=== PATIENT | female | born 1965 | race Caucasian/White ===

== ENCOUNTER 2019-07-24 15:08 | Outpatient (CLI) | payer MEDICARE, MEDICAID, SELFPAY ==
--- NOTE | ~2019-07-24 | XR_ITS ---
EXAMINATION: XR chest 2V EXAM DATE: 07/24/2019 15:56 INDICATION: Shortness of breath. TECHNIQUE: Frontal and lateral projections of the chest obtained and reviewed. Comparison is made to prior examination from 02/20/2016. FINDINGS: The lungs are clear. There are no pleural effusions. The cardiomediastinal silhouette is within normal limits. There is no pneumothorax suspected. The bones and soft tissues are unremarkab le. IMPRESSION: No acute cardiopulmonary findings. Reviewed, dictated and finalized at location A. TING ENTRY SPECIALIST
--- NOTE | ~2019-07-24 | MM_ITS ---
EXAMINATION: MM screening [facility] BI w [facility] HISTORY: Screening mammogram TECHNIQUE: Craniocaudal and mediolateral oblique 3-D tomosynthesis images were obtained and synthetic 2-D images were generated. CAD analysis was submitted and interpreted. COMPARISON: 03/21/2014, 01/12/2013 BREAST PARENCHYMAL COMPOSITION: There are scattered areas of fibroglandular density. FINDINGS: There is no evidence of suspicious mass, calcification, or architectural distortion to sugg est malignancy in either breast. There has been no suspicious interval change. IMPRESSION: 1. No mammographic evidence of malignancy. 2. Recommend routine screening mammography in one year. BI-RADS Category 1: Negative Reviewed, dictated and finalized at location A. INGS INSPECTOR
== END 2019-07-24 15:09 | disposition home or self-care (01) ==
PROVIDERS: PCP Family Medicine; Visit Provider Physician Assistant
DX: Z12.31 Encounter for screening mammogram for malignant neoplasm of breast (principal); R06.02 Shortness of breath
CPT/HCPCS: 71046; 77063; 77067

== ENCOUNTER 2020-12-16 13:52 | Outpatient (CLI) | payer MEDICARE, MEDICAID, SELFPAY ==
[2020-12-16 14:29] LABS: Basophils Percent Auto 0.5 % (0.2-1.2); Eosinophils Absolute Auto 0.3 K/mm3 (0-0.3); Eosinophils Percent Auto 3.7 % (0-4.4); Hemoglobin 12.6 g/dL (12.0-15.0); Immature Granulocyte Absolute 0.02 K/mm3 (0.00-0.031); Immature Granulocyte Percent A 0.2 % (0-0.5); Lymphocytes Absolute Auto 2.26 K/mm3 (0.9-3.2); Lymphocytes Percent Auto 26.2 % (18.3-44.2); Mean Corpuscular HGB Conc 32.3 g/dl (32-36); Mean Corpuscular Hemoglobin 29.6 pg (26-34); Mean Corpuscular Volume 91.5 fl (80-100); Mean Platelet Volume 9.4 fl (7.4-10.4); Monocytes Absolute Auto 0.5 K/mm3 (0.1-0.6); Monocytes Percent Auto 5.7 % (2.6-8.5); Neutrophils Absolute Auto 5.5 K/mm3 (1.3-6.7); Neutrophils Percent Auto 63.7 % (45.5-73.1); Platelet Count Result 266 k/mm3 (150-375); Red Blood Count 4.26 M/mm3 (4.2-5.4); Red Cell Distribution Width 13.1 % (11.5-14.5); White Blood Count 8.6 K/mm3 (4.5-10.0)
[2020-12-16 14:40] LABS: Alanine Aminotransferase 13 U/L (4-35); Albumin Level 4.4 g/dL (3.5-5.1); Alkaline Phosphatase 72 U/L (38-126); Anion Gap 9 mmol/L (8-16); Aspartate Amino Transferase 28 U/L (14-36); Bilirubin,Total 0.7 mg/dL (0.2-1.3); Blood Urea Nitrogen 17 mg/dL (7-17); Calcium 9.6 mg/dL (8.4-10.2); Carbon Dioxide 27 mmol/L (22-30); Chloride 106 mmol/L (98-107); Cholesterol 159 mg/dL (0-200); Estimated Glomerular Filt Rate > 60; Glucose 94 mg/dL (65-105); HDL Direct 49 mg/dL; Potassium 3.9 mmol/L (3.4-5.0); Sodium 142 mmol/L (137-145); Triglycerides 103 mg/dL (<150)
[2020-12-16 14:50] LABS: LDL Cholesterol Direct 72 mg/dL
== END 2020-12-16 13:53 | disposition home or self-care (01) ==
LOC: ANHLAB 13:55
PROVIDERS: PCP Family Medicine; Visit Provider Physician Assistant
DX: F32.9 Major depressive disorder, single episode, unspecified (principal); G71.00 Muscular dystrophy, unspecified; I10 Essential (primary) hypertension
CPT/HCPCS: 36415; 80053; 80061; 84443; 85025

== ENCOUNTER 2021-01-16 02:26 | Day surgery (SDC) | payer MEDICARE, MEDICAID, SELFPAY ==
[2020-12-31 13:42] VITALS: BMI 47.7
[2021-01-16 10:00] VITALS: BP 148/92; PULSE 107; RESP 18; TEMP 35.7; O2SAT 100; BMI 46.9
[2021-01-16] MEDS: LACTATED RINGERS 1,000 ML 150 ML IV CONT (10:25)
--- NOTE | 2021-01-16 10:33 | WPDGICN ---
Assessment and Plan Assessment and plan (1) Occult blood in stools: Code(s): R19.5 - Other fecal abnormalities Status: Acute Assessment and Plan: Patient found to have occult blood in stool. Plan is for colonoscopy at this time. Last exam was in 2010 and she did have nonspecific colitis at that time. Further recommendations will be given after endoscopy. GI Consult Note Consult date/time: 01/16/21 10:33 HPI: Marcia Mehta is a 55 year old female presents for evaluation of blood in stool. Patient recently found to have positive FIT tests. Patient states occasionally she will notice bright red blood per rectum. This is usually to a small degree. There is no associated pain. Tends to occur with wiping. 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 Patient currently states her bowel habits are essentially normal. She denies any significant abdominal pain. Past medical history is significant for muscular dystrophy. And hypertension. She does use a wheelchair for ambulation. Review of Systems Review of Systems: All systems reviewed & are unremarkable except as noted in HPI and below PMFSH Past Medical History Medical History (Updated 01/16/21 @ 10:35 by Jarred Flores MD) Anemia Anxiety Arthritis Claustrophobia Constipation Cough Depression Diarrhea Essential (primary) hypertension Hair loss Hypertension Lateral epicondylitis Light headedness Major depressive disorder, single episode, unspecified Muscular dystrophy, unspecified Paronychia Ulnar neuropathy Urinary frequency UTI (urinary tract infection) Wears glasses Weight gain Surgical History Surgical History (Updated 12/17/20 @ 08:08 by Jaymie Gray RT(R)) History of History of shoulder surgery Family History Family History (Updated 12/17/20 @ 08:09 by Jaymie Gray RT(R)) Grandparent Family history of cardiovascular disease Family history of congestive heart failure Mother Carcinoma of colon Family history of malignant neoplasm of stomach Father History of myocardial infarction Other Diabetes mellitus Family history of alcoholism Family history of arthritis Family history of gout High cholesterol History of brain tumor Hypertension Social History Social History (Updated 12/17/20 @ 08:10 by Jaymie Gray RT(R)) Smoking packs per day: 0.5 Smoking cigarettes per day: 10.0 Years smoked: 40 Smoking pack-years: 20.00 Smoking status: Former smoker Smoking end date: 05/20/17 Alcohol intake: never Substance use: never Substance use type: does not use Living arrangements: alone Gender identity (if verbalized by the patient): Female Spiritual care concerns: No Meds Home Medications and Allergies Home Medications Medication Instructions Recorded Confirmed Type bupropion HCl 150 mg 24 hr tablet, 150 mg PO QAM #90 tablet 07/02/20 01/16/21 Rx extended release venlafaxine 75 mg capsule,extended 75 mg PO DAILY #90 cap 07/02/20 01/16/21 Rx release 24 hr losartan 50 mg tablet See Rx Instructions .ROUTE 12/01/20 01/16/21 Rx .COMPLEX #90 tablet naproxen 500 mg tablet See Rx Instructions .ROUTE 12/01/20 01/16/21 Rx .COMPLEX #60 tablet baclofen 10 mg tablet See Rx Instructions .ROUTE 12/23/20 01/16/21 Rx .COMPLEX #90 tablet tobramycin 0.3 % eye drops 2 drp EACH EYE Q4H #5 ml 12/26/20 01/16/21 Rx Allergies Allergy/AdvReac Type Severity Reaction Status Date / Time guaifenesin Allergy Mild Unknown Verified 01/16/21 09:37 azathioprine Allergy Unknown Nausea Verified 01/16/21 09:37 codeine [Guaifen-C] Allergy Unknown jittery Verified 01/16/21 09:37 erythromycin base Allergy Unknown upset Verified 01/16/21 09:37 stomach hydrocodone Allergy Unknown itching Verified 01/16/21 09:37 morphine Allergy Unknown Unknown Verified 01/16/21 09:37 pseudoephedrine [Entex T] Allergy Unkno
--- NOTE | 2021-01-16 10:49 | WPDANESEPPF ---
Anes - Initial Pre Proc Eval Procedure: Operation Date: 01/16/21 10:30 Proposed Procedures p Colonoscopy - Jarred Flores MD Date/Time: 01/16/21 10:49 Surgeon: Jarred Flores MD Pre Op Diagnosis: positive cologuard Patient Data Age: 55 Gender: F Height: 1.65 m Weight: 128 kg Last Vital Signs Temp 96.2 F L 01/16/21 10:00 Pulse 107 H 01/16/21 10:00 Resp 18 01/16/21 10:00 BP 148/92 H 01/16/21 10:00 Pulse Ox 100 01/16/21 10:00 Allergies Allergy/AdvReac Type Severity Reaction Status Date / Time guaifenesin Allergy Mild Unknown Verified 01/16/21 09:37 azathioprine Allergy Unknown Nausea Verified 01/16/21 09:37 codeine [Guaifen-C] Allergy Unknown jittery Verified 01/16/21 09:37 erythromycin base Allergy Unknown upset Verified 01/16/21 09:37 stomach hydrocodone Allergy Unknown itching Verified 01/16/21 09:37 morphine Allergy Unknown Unknown Verified 01/16/21 09:37 pseudoephedrine [Entex T] Allergy Unknown jittery Verified 01/16/21 09:37 IMMUNOSUPPRESS Allergy Mild Unknown Uncoded 01/16/21 09:37 PHENYLEPHRINE HCL Allergy Mild Unknown Uncoded 01/16/21 09:37 PHENYLPROPANOLAMINE HCL Allergy Mild Unknown Uncoded 01/16/21 09:37 Home Medications Medication Instructions Recorded Confirmed Type bupropion HCl 150 mg 24 hr tablet, 150 mg PO QAM #90 tablet 07/02/20 01/16/21 Rx extended release venlafaxine 75 mg capsule,extended 75 mg PO DAILY #90 cap 07/02/20 01/16/21 Rx release 24 hr losartan 50 mg tablet See Rx Instructions .ROUTE 12/01/20 01/16/21 Rx .COMPLEX #90 tablet naproxen 500 mg tablet See Rx Instructions .ROUTE 12/01/20 01/16/21 Rx .COMPLEX #60 tablet baclofen 10 mg tablet See Rx Instructions .ROUTE 12/23/20 01/16/21 Rx .COMPLEX #90 tablet tobramycin 0.3 % eye drops 2 drp EACH EYE Q4H #5 ml 12/26/20 01/16/21 Rx Patient hx anesthesia problems: none Family hx anesthesia problems: none PMFSH Past Medical History Medical History (Updated 01/16/21 @ 10:35 by Jarred Flores MD) Anemia Anxiety Arthritis Claustrophobia Constipation Cough Depression Diarrhea Essential (primary) hypertension Hair loss Hypertension Lateral epicondylitis Light headedness Major depressive disorder, single episode, unspecified Muscular dystrophy, unspecified Paronychia Ulnar neuropathy Urinary frequency UTI (urinary tract infection) Wears glasses Weight gain Surgical History Surgical History (Updated 12/17/20 @ 08:08 by Jaymie Gray RT(R)) History of History of shoulder surgery Family History Family History (Updated 12/17/20 @ 08:09 by RT Sav(R)) Grandparent Family history of cardiovascular disease Family history of congestive heart failure Mother Carcinoma of colon Family history of malignant neoplasm of stomach Father History of myocardial infarction Other Diabetes mellitus Family history of alcoholism Family history of arthritis Family history of gout High cholesterol History of brain tumor Hypertension Social History Social History (Updated 12/17/20 @ 08:10 by Jaymie Gray RT(R)) Smoking packs per day: 0.5 Smoking cigarettes per day: 10.0 Years smoked: 40 Smoking pack-years: 20.00 Smoking status: Former smoker Smoking end date: 05/20/17 Alcohol intake: never Substance use: never Substance use type: does not use Living arrangements: alone Gender identity (if verbalized by the patient): Female Spiritual care concerns: No Anes - Eval Final PreProcedure Day of Procedure 01/16/21 10:49 Patient weight: morbidly obese Heart: regular rate and rhythm Lungs: clear to auscultation Airway: Mallampati scale class III Neurological: alert and oriented Last oral intake: >/= 8 hours ASA classification: IV Emergent: no Anesthetic plan: proceed Anesthesia type and monitoring: general GIVS and standard monitoring Informed Consent: The patient's anesthetic plan and its attendant ris
[2021-01-16 11:10] VITALS: BP 88/50; PULSE 90; RESP 20; O2SAT 100
[2021-01-16 11:20] VITALS: BP 96/54; PULSE 88; RESP 18; O2SAT 100
[2021-01-16 11:30] VITALS: BP 113/66; PULSE 88; RESP 20; O2SAT 100
[2021-01-21 12:25] LABS: ANCA Screen Negative (Negative); Myeloperoxidase Ab <1.0 AI (<1.0); Proteinase-3 Ab <1.0 AI (<1.0); S cerevisiae Ab (IgA) 11.3 U (<=20.0); S cerevisiae Ab (IgG) 10.4 U (<=20.0)
== END 2021-01-16 12:10 | disposition home or self-care (01) ==
PROVIDERS: PCP Family Medicine; Visit Provider Internal Medicine Gastroenterology
PROC: 0DJD8ZZ Inspection of Lower Intestinal Tract, Via Natural or Artificial Opening Endoscopic (ICD-10-PCS; CPT 45378; principal; 2021-01-16 10:30)
DX: K52.9 Noninfective gastroenteritis and colitis, unspecified (principal); K64.4 Residual hemorrhoidal skin tags; K64.8 Other hemorrhoids; K56.699 Other intestinal obstruction unspecified as to partial versus complete obstruction; D64.9 Anemia, unspecified; F41.8 Other specified anxiety disorders; I10 Essential (primary) hypertension; G71.00 Muscular dystrophy, unspecified; Z99.3 Dependence on wheelchair; Z87.891 Personal history of nicotine dependence
CPT/HCPCS: 45380; 36415; 86021; 86671; 88305; J2704; J7120

== ENCOUNTER 2021-01-26 07:58 | Outpatient (CLI) | payer MEDICARE, MEDICAID, SELFPAY ==
--- NOTE | ~2021-01-26 | XR_ITS ---
EXAMINATION: XR_ENEMABAC_CR DATE: 01/26/2021 09:27 INDICATION: Ascending colon stricture. TECHNIQUE: A sawdust machine operator radiograph was obtained. A catheter was inserted into the patient's rectum. Contra st was infused by gravity. Gas was infused by hand pump. Fluoroscopic spot images and conventional ra diographs were obtained. Fluoroscopy exposure time was 0.7 minutes. The total number of images was 42 . COMPARISON: CT abdomen and pelvis 05/15/2014 FINDINGS: There is a severe stricture of the ascending colon. The transverse, descending, and sigmoid colon and rectum are normal. IMPRESSION: 1. Severe stricture of the ascending colon suspicious for malignancy. Reviewed, dictated and finalized at location A.
== END 2021-01-26 07:59 | disposition home or self-care (01) ==
LOC: ANHIMG 08:02
PROVIDERS: PCP Family Medicine; Visit Provider Internal Medicine Gastroenterology
DX: K56.699 Other intestinal obstruction unspecified as to partial versus complete obstruction (principal); R93.3 Abnormal findings on diagnostic imaging of other parts of digestive tract
CPT/HCPCS: 74280

== ENCOUNTER → 2021-02-10 14:22 | Outpatient (CLI) | payer MEDICARE, MEDICAID, SELFPAY ==
--- NOTE | ~2021-02-10 | CT_ITS ---
EXAMINATION: CT abdomen pelvis w con DATE: 02/10/2021 15:11 INDICATION: Stricture of ascending colon TECHNIQUE: Computed tomography (CT) of the abdomen and pelvis was performed with 100 cc Omnipaque 350 intravenous contrast. Automated exposure control and iterative reconstruction technique were employe d. Exam dose: 977.05 mGy-cm total exam DLP. COMPARISON: 05/15/2014 CT abdomen pelvis FINDINGS: The lung bases are clear of infiltrate or consolidation. Normal heart size. No pericardial or pleural effusion. The liver, gallbladder, bile ducts, spleen, pancreas, pancreatic duct, and adrenal glands are unremar kable. 6 mm and 8 mm right renal cysts. No urinary tract calculus or hydroureteronephrosis. There is abdominal aortic, iliac and femoral artery calcification. No abdominal aortic aneurysm. No intraperit morgan or retroperitoneal or pelvic mass lesion or adenopathy or ascites. The uterus, adnexal areas and urinary bladder are unremarkable. There is fatty infiltration of the wall of the ascending colon. There are some shoddy likely reactive lymph nodes in the right lower quadrant. The appendix measures approximately 7 mm diameter, similar to 05/15/2014. No bowel obstruction or intraperitoneal free air. Small fat-containing umbilical hernia. There is chronic severe atrophy of the musculature throughout the chest and abdomen. No suspicious osteolytic or osteoblastic lesions are noted. IMPRESSION: There is fatty infiltration of the ascending colon which may be due to residual from inf lammatory or infectious disease. No bowel obstruction is evident. Colonoscopy or barium enema would b e more sensitive for detection of stricture or colon mass lesion. Shotty right lower quadrant lymph nodes, mildly increased compared to Stable appearance of 7 mm diameter appendix since 05/15/2014 Reviewed, dictated and finalized at Location A. Reviewed, dictated and finalized at location A. IMPRESSION: There is fatty infiltration of the ascending colon which may be du e to residual from inflammatory or infectious disease. No bowel obstruction is evident. Colonoscopy or barium enema would be more sensitive for detection of s tricture or colon mass lesion. Shotty right lower quadrant lymph nodes, mildly increased compared to Stable appearance of 7 mm diameter appendix since 05/15/2014
[2021-02-10 14:47] LABS: Estimated Glomerular Filt Rate > 60
== END ==
PROVIDERS: PCP Family Medicine; Visit Provider Surgery
DX: K56.699 Other intestinal obstruction unspecified as to partial versus complete obstruction (principal); R59.0 Localized enlarged lymph nodes
CPT/HCPCS: 74177; Q9967

== ENCOUNTER 2021-02-19 11:57 | Outpatient (CLI) | payer MEDICARE, MEDICAID, SELFPAY ==
--- NOTE | 2021-02-19 12:54 | ECG_ITS ---
Measurements Intervals [place] Rate: 92 P: 64 DC: 162 QRS: 8 QRSD: 101 T: 40 QT: 349 QTc: 432 Interpretive Statements SINUS RHYTHM INCOMPLETE RIGHT BUNDLE BRANCH BLOCK BORDERLINE R WAVE PROGRESSION, ANTERIOR LEADS BASELINE ARTIFACT- I, II, III, AVR, AVL, AVF BORDERLINE ECG Electronically Signed On 02-19-2021 13:03:07 CDT by West Reyes D.O.
== END 2021-02-19 11:58 | disposition home or self-care (01) ==
LOC: ANHSURGERY 12:04
PROVIDERS: PCP Family Medicine; Visit Provider Surgery
DX: Z01.818 Encounter for other preprocedural examination (principal); I45.10 Unspecified right bundle-branch block
CPT/HCPCS: 36415; 86850; 86900; 86901; 93005

== ENCOUNTER 2021-04-17 00:48 | Day surgery (SDC) | payer MEDICARE, MEDICAID, SELFPAY ==
[2021-03-26 13:22] VITALS: BMI 49.8
[2021-04-17 08:07] VITALS: BP 177/99; PULSE 97; RESP 16; TEMP 36; O2SAT 97; BMI 49.8
[2021-04-17] MEDS: LACTATED RINGERS 1,000 ML 150 ML IV CONT (08:10)
--- NOTE | 2021-04-17 08:16 | WPDANESEPPF ---
Anes - Initial Pre Proc Eval Procedure: Operation Date: 04/17/21 08:30 Proposed Procedures p Colonoscopy - Jarred Flores MD Date/Time: 04/17/21 08:16 Surgeon: Jarred Flores MD Pre Op Diagnosis: stenosis/colonic stricture Patient Data Age: 56 Gender: F Height: 1.65 m Weight: 136 kg Last Vital Signs Temp 36.0 C L 04/17/21 08:07 Pulse 97 04/17/21 08:07 Resp 16 04/17/21 08:07 BP 177/99 H 04/17/21 08:07 Pulse Ox 97 04/17/21 08:07 Allergies Allergy/AdvReac Type Severity Reaction Status Date / Time mesalamine Allergy Mild muscle Verified 04/17/21 08:06 weakness azathioprine Allergy Unknown Nausea Verified 04/17/21 08:06 codeine [Guaifen-C] Allergy Unknown jittery Verified 04/17/21 08:06 erythromycin base Allergy Unknown upset Verified 04/17/21 08:06 stomach hydrocodone Allergy Unknown itching Verified 04/17/21 08:06 morphine Allergy Unknown Itching Verified 04/17/21 08:06 pseudoephedrine [Entex T] Allergy Unknown jittery Verified 04/17/21 08:06 guaifenesin AdvReac Mild Jittery Verified 04/17/21 08:06 IMMUNOSUPPRESS Allergy Mild Unknown Uncoded 04/17/21 08:06 PHENYLEPHRINE HCL Allergy Mild Jittery Uncoded 04/17/21 08:06 PHENYLPROPANOLAMINE HCL Allergy Mild Unknown Uncoded 04/17/21 08:06 Home Medications Medication Instructions Recorded Confirmed Type metronidazole 500 mg tablet 500 mg PO .COMPLEX #3 tablet 02/06/21 04/17/21 Rx neomycin 500 mg tablet 1 g PO .COMPLEX #6 tablet 02/06/21 04/17/21 Rx acetaminophen [Tylenol Extra 500 mg PO PRN PRN 02/19/21 04/17/21 History Strength] bupropion HCl [Wellbutrin XL] 150 mg PO HS 02/19/21 04/17/21 History losartan 50 mg PO HS 02/19/21 04/17/21 History venlafaxine [Effexor XR] 75 mg PO HS 02/19/21 04/17/21 History baclofen 10 mg tablet See Rx Instructions .ROUTE 03/13/21 04/17/21 Rx .COMPLEX #90 tablet Patient hx anesthesia problems: none Family hx anesthesia problems: none Results Review: All pre-operative results and documents have been reviewed as part of the pre-operative evaluation. [facility] Past Medical History Medical History Anemia Anxiety Arthritis Claustrophobia Constipation Cough Depression Diarrhea Essential (primary) hypertension Hair loss Hypertension Lateral epicondylitis Light headedness Major depressive disorder, single episode, unspecified Muscular dystrophy, unspecified Paronychia Ulnar neuropathy Urinary frequency UTI (urinary tract infection) Wears glasses Weight gain Surgical History Surgical History History of History of shoulder surgery Family History Family History Father Myocardial infarction Hypertension Mother Carcinoma of colon Hypertension Stomach cancer with mets to the throat Sibling Brain tumor Sibling Hypertension Sibling Hypertension Grandparent Breast cancer Paternal grandmother - with mets to the colon Other Congestive heart failure Myocardial infarction Social History Social History Smoking packs per day: 0.5 Smoking cigarettes per day: 10.0 Years smoked: 37 Smoking pack-years: 18.50 Smoking status: Former smoker Tobacco type: cigarettes Smoking end date: 06/20/15 Alcohol intake: never Substance use: never Substance use type: does not use Living arrangements: with family Gender identity (if verbalized by the patient): Female Spiritual care concerns: No Anes - Eval Final PreProcedure Day of Procedure 04/17/21 08:16 Patient weight: obese Heart: regular rate and rhythm Lungs: clear to auscultation Airway: Mallampati scale class II Neurological: alert and oriented Last oral intake: >/= 8 hours ASA classification: III Emergent: no Anesthetic plan: proceed Anesthesia type and monitoring:
--- NOTE | 2021-04-17 08:20 | WPDGICN ---
Assessment and Plan Assessment and plan (1) Stricture of ascending colon: Code(s): K56.699 - Other intestinal obstruction unspecified as to partial versus complete obstruction Status: Acute Assessment and Plan: Patient has had apparent stricture of the ascending colon on previous exams. Currently asymptomatic on regular diet. Plan is for follow-up exam to determine status of this stricture. (2) Occult blood in stools: Code(s): R19.5 - Other fecal abnormalities Status: Acute Assessment and Plan: Patient with a prior history of occult blood in stool. No obvious blood has been noted recently. (3) Muscular dystrophy, unspecified: Code(s): G71.00 - Muscular dystrophy, unspecified Status: Acute GI Consult Note Consult date/time: 04/17/21 08:20 HPI: Marcia Mehta is a 56 year old female presents for colonoscopy. Patient has an underlying history of muscular dystrophy. She underwent colonoscopy because of occult blood in stool and was ultimately found to have a stricture of the ascending colon. Initial barium enema suggested a tight stricture with concern over malignancy. Follow-up barium enema revealed no stricture at all. Patient presents today for follow-up exam to ensure resolution or to confirm stricture ring. She denies any abdominal pain. She has had no bleeding. Initially treated with low residue diet she has begun to have a more regular normal diet. Family history is significant that her mother had carcinoma the colon as well as stomach cancer. Review of Systems Review of Systems: All systems reviewed & are unremarkable except as noted in HPI and below PMFSH Past Medical History Medical History Anemia Anxiety Arthritis Claustrophobia Constipation Cough Depression Diarrhea Essential (primary) hypertension Hair loss Hypertension Lateral epicondylitis Light headedness Major depressive disorder, single episode, unspecified Muscular dystrophy, unspecified Paronychia Ulnar neuropathy Urinary frequency UTI (urinary tract infection) Wears glasses Weight gain Surgical History Surgical History History of History of shoulder surgery Family History Family History Father Myocardial infarction Hypertension Mother Carcinoma of colon Hypertension Stomach cancer with mets to the throat Sibling Brain tumor Sibling Hypertension Sibling Hypertension Grandparent Breast cancer Paternal grandmother - with mets to the colon Other Congestive heart failure Myocardial infarction Social History Social History Smoking packs per day: 0.5 Smoking cigarettes per day: 10.0 Years smoked: 37 Smoking pack-years: 18.50 Smoking status: Former smoker Tobacco type: cigarettes Smoking end date: 06/20/15 Alcohol intake: never Substance use: never Substance use type: does not use Living arrangements: with family Gender identity (if verbalized by the patient): Female Spiritual care concerns: No Meds Home Medications and Allergies Home Medications Medication Instructions Recorded Confirmed Type metronidazole 500 mg tablet 500 mg PO .COMPLEX #3 tablet 02/06/21 04/17/21 Rx neomycin 500 mg tablet 1 g PO .COMPLEX #6 tablet 02/06/21 04/17/21 Rx acetaminophen [Tylenol Extra 500 mg PO PRN PRN 02/19/21 04/17/21 History Strength] bupropion HCl [Wellbutrin XL] 150 mg PO HS 02/19/21 04/17/21 History losartan 50 mg PO HS 02/19/21 04/17/21 History venlafaxine [Effexor XR] 75 mg PO HS 02/19/21 04/17/21 History baclofen 10 mg tablet See Rx Instructions .ROUTE 03/13/21 04/17/21 Rx .COMPLEX #90 tablet Allergies Allergy/AdvReac Type Severity Reaction Status Date / Time mesalamine Allergy Mild muscle Ve
[2021-04-17 08:53] VITALS: BP 114/62; PULSE 86; RESP 15; O2SAT 99
[2021-04-17 09:03] VITALS: BP 134/83; PULSE 91; RESP 13; O2SAT 99
[2021-04-17 09:13] VITALS: BP 154/90; PULSE 87; RESP 20; O2SAT 99
== END 2021-04-17 09:35 | disposition home or self-care (01) ==
PROVIDERS: PCP Family Medicine; Visit Provider Internal Medicine Gastroenterology
PROC: 0DJD8ZZ Inspection of Lower Intestinal Tract, Via Natural or Artificial Opening Endoscopic (ICD-10-PCS; CPT 45378; principal; 2021-04-17 08:30)
DX: K56.699 Other intestinal obstruction unspecified as to partial versus complete obstruction (principal); K52.9 Noninfective gastroenteritis and colitis, unspecified; K63.89 Other specified diseases of intestine; R19.5 Other fecal abnormalities; G71.00 Muscular dystrophy, unspecified; D64.9 Anemia, unspecified; F41.9 Anxiety disorder, unspecified; M19.90 Unspecified osteoarthritis, unspecified site; F40.240 Claustrophobia; F32.A Depression, unspecified; I10 Essential (primary) hypertension; G56.20 Lesion of ulnar nerve, unspecified upper limb; Z80.0 Family history of malignant neoplasm of digestive organs; Z87.891 Personal history of nicotine dependence
CPT/HCPCS: 45380; 88305; J2704; J7120

== ENCOUNTER 2021-06-13 15:36 | Inpatient (IN) | payer MEDICARE, MEDICAID, SELFPAY ==
[2021-06-13] VITALS (14 sets, daily range): BP systolic 150–188; BP diastolic 71–98; PULSE 78–106; RESP 18–166; TEMP 36.4–36.8; O2SAT 97–100
--- NOTE | ~2021-06-13 | XR_ITS ---
XR hip LT 2V w AP pelvis DATE: 06/14/2021 10:44 INDICATION: Left femoral neck fracture TECHNIQUE: Portable AP pelvis. AP and crosstable lateral views of left hip COMPARISON: None FINDINGS: 3 lag screws extend through the intertrochanteric area and femoral neck into the femoral he ad, providing internal fixation for the left capital femoral neck fracture. Diffuse osteopenia. The pubic symphysis and sacroiliac joints are intact. IMPRESSION: ORIF left subcapital femoral neck fracture Reviewed, dictated and finalized at location A. TNING ROD ERECTOR
--- NOTE | ~2021-06-13 | XR_ITS ---
EXAMINATION: XR hip LT 2V w AP pelvis DATE: 06/13/2021 16:03 INDICATION: Left hip pain post fall TECHNIQUE: Anteroposterior view of the pelvis and anteroposterior and cross-table lateral views of th e left hip were obtained. COMPARISON: None. FINDINGS: Proximally 5 mm posterior displacement of a transcervical fracture of the proximal left femur. No oth er fractures identified. Mild osteoarthritis at the bilateral hips. IMPRESSION: 1. 5 mm posterior displacement of a left femoral transcervical fracture. Reviewed, dictated and finalized at location . GER PMO
--- NOTE | ~2021-06-13 | XR_ITS ---
EXAMINATION: XR chest 1V portable DATE: 06/13/2021 17:25 INDICATION: Left hip fracture post fall from preoperative evaluation. Surgical risk factors of hypert ension and prior smoking. TECHNIQUE: frontal view of the chest was obtained. COMPARISON: Chest radiograph dated 07/24/2019 FINDINGS: Mild linear atelectasis/scarring at the right costophrenic angle. No other airspace opacities, pulmon erick edema, pleural effusion or pneumothorax. The cardiomediastinal silhouette is normal. Visualized b ones and soft tissues are unremarkable. IMPRESSION: 1. No acute cardiopulmonary disease. Reviewed, dictated and finalized at location . ICAL RESEARCH ASSISTANT
--- NOTE | ~2021-06-13 | XR_ITS ---
EXAMINATION: XR knee LT 2V DATE: 06/13/2021 19:02 INDICATION: Left knee pain post fall TECHNIQUE: AP, oblique and crosstable lateral views of the left knee were obtained.. COMPARISON: 10/11/2013 FINDINGS: Alignment is normal. No fracture. Joint spaces appear normal on nonweightbearing imaging. Soft tissue s are unremarkable. No knee joint effusion or layering lipohemarthrosis. IMPRESSION: 1. Negative left knee radiographs. Reviewed, dictated and finalized at location H. RY TANK TENDER
--- NOTE | ~2021-06-13 | XR_ITS ---
XR surgery orthopedic DATE: 06/14/2021 10:44 INDICATION: Subcapital femoral neck fracture TECHNIQUE: 114.7 seconds fluoroscopy time [id number] [id number] COMPARISON: None FINDINGS: 3 lag screws are placed through the intertrochanteric area and femoral neck into the left f emoral head, providing internal fixation for the left subcapital femoral neck fracture. IMPRESSION: ORIF left subcapital femoral neck fracture Reviewed, dictated and finalized at Location A. Reviewed, dictated and finalized at location A. SER AUTOMATIC
--- NOTE | 2021-06-13 16:58 | ECG_ITS ---
Measurements Intervals [place] Rate: 100 P: 51 PA: 140 QRS: 24 QRSD: 100 T: 60 QT: 355 QTc: 459 Interpretive Statements SINUS TACHYCARDIA POSSIBLE LEFT ATRIAL ENLARGEMENT INCOMPLETE RIGHT BUNDLE BRANCH BLOCK BORDERLINE ECG Electronically Signed On 06-13-2021 21:03:55 KENO WRITER / RUNNER by West Reyes D.O.
--- NOTE | 2021-06-13 17:06 | ED.FALL ---
HPI - Fall General Chief Complaint: Fall Stated Complaint: HIP PAIN Time Seen by Provider: 06/13/21 16:23 Source: patient, EMS and RN notes reviewed Mode of arrival: EMS Limitations: no limitations History of Present Illness HPI Narrative: Patient presents with left groin pain. After a fall. History of MS. Patient was attempting to transfer from wheelchair to a toilet then fell. Denies other injuries. Patient is wheelchair-bound, she can stand, cannot walk even 1 step.. BMI is 39.6 kg/m?, fully vaccinated and boosted for COVID-19. History of MS, depression, hypertension. Patient is not on anticoagulant or antiplatelet medication Related Data Home Medications Medication Instructions Recorded Confirmed acetaminophen [Tylenol Extra 500 mg PO PRN PRN 02/19/21 04/17/21 Strength] bupropion HCl [Wellbutrin XL] 150 mg PO HS 02/19/21 04/17/21 losartan 50 mg PO HS 02/19/21 04/17/21 venlafaxine [Effexor XR] 75 mg PO HS 02/19/21 04/17/21 Allergies Allergy/AdvReac Type Severity Reaction Status Date / Time phenylpropanolamine Allergy Mild Unknown Verified 06/13/21 17:19 hydrocodone Allergy Unknown itching Verified 04/17/21 08:06 guaifenesin AdvReac Mild Jittery Verified 04/17/21 08:06 mesalamine AdvReac Mild muscle Verified 06/13/21 17:20 weakness phenylephrine AdvReac Mild Jittery Verified 06/13/21 17:19 azathioprine AdvReac Unknown Nausea Verified 06/13/21 17:20 codeine [Guaifen-C] AdvReac Unknown jittery Verified 06/13/21 17:20 erythromycin base AdvReac Unknown upset Verified 06/13/21 17:20 stomach morphine AdvReac Unknown Itching Verified 06/13/21 17:20 pseudoephedrine [Entex T] AdvReac Unknown jittery Verified 06/13/21 17:20 IMMUNOSUPPRESS Allergy Mild Unknown Uncoded 04/17/21 08:06 Review of Systems Review of Systems: CONSTITUTIONAL: Denies fever, chills, or sweats. EYES: Denies visual changes, redness, or discharge. ENT: Denies rhinorrhea, congestion, sore throat, or otalgia. CARDIOVASCULAR: Denies chest pain, palpitations, or edema. RESPIRATORY: Denies cough or dyspnea. GASTROINTESTINAL: Denies abdominal pain, nausea, vomiting, or diarrhea. GENITOURINARY: Denies dysuria or hematuria. SKIN: Denies rash or itching. MUSCULOSKELETAL: Left groin pain NEUROLOGIC: Denies headache, numbness, or weakness. PSYCHIATRIC: Denies anxiety or depression. PMFSH Past Medical History Medical History Anemia Anxiety Arthritis Claustrophobia Constipation Cough Depression Diarrhea Essential (primary) hypertension Hair loss Hypertension Lateral epicondylitis Light headedness Major depressive disorder, single episode, unspecified Muscular dystrophy, unspecified Paronychia Ulnar neuropathy Urinary frequency UTI (urinary tract infection) Wears glasses Weight gain Surgical History Surgical History History of History of shoulder surgery Family History Family History Father Myocardial infarction Hypertension Mother Carcinoma of colon Hypertension Stomach cancer with mets to the throat Sibling Brain tumor Sibling Hypertension Sibling Hypertension Grandparent Breast cancer Paternal grandmother - with mets to the colon Other Congestive heart failure Myocardial infarction Social History Social History Smoking packs per day: 0.5 Smoking cigarettes per day: 10.0 Years smoked: 37 Smoking pack-years: 18.50 Smoking status: Former smoker Tobacco type: cigarettes Smoking end date: 06/20/15 Alcohol intake: never Substance use: never Substance use type: does not use Gender identity (if verbalized by the patient): Female Spiritual care concerns: No Exam Narrative: General appearance: Well-developed, well-nourished Skin: Normal color Head: Normocep
[2021-06-13 17:34] LABS: Basophils Percent Auto 0.4 % (0.2-1.2); Eosinophils Absolute Auto 0.1 K/mm3 (0-0.3); Hematocrit 37.8 % (37.0-47.0); Hemoglobin 12.3 g/dL (12.0-15.0); Immature Granulocyte Absolute 0.05 K/mm3 (0.00-0.031); Immature Granulocyte Percent A 0.4 % (0-0.5); Lymphocytes Absolute Auto 1.31 K/mm3 (0.9-3.2); Lymphocytes Percent Auto 11.6 % (18.3-44.2); Mean Corpuscular HGB Conc 32.5 g/dl (32-36); Mean Corpuscular Hemoglobin 29.9 pg (26-34); Mean Corpuscular Volume 91.7 fl (80-100); Mean Platelet Volume 9.2 fl (7.4-10.4); Monocytes Absolute Auto 0.5 K/mm3 (0.1-0.6); Monocytes Percent Auto 4.1 % (2.6-8.5); Neutrophils Absolute Auto 9.4 K/mm3 (1.3-6.7); Neutrophils Percent Auto 82.5 % (45.5-73.1); Platelet Count Result 272 k/mm3 (150-375); Red Blood Count 4.12 M/mm3 (4.2-5.4); Red Cell Distribution Width 13.2 % (11.5-14.5); White Blood Count 11.3 K/mm3 (4.5-10.0)
[2021-06-13 17:43] LABS: Prothrombin Time 12.9 Seconds (11.1-14.7)
[2021-06-13] MEDS: fentaNYL CITRATE INJ (*CRX) 100 MCG/2 ML VIAL 25 MCG IV PUSH (17:44)
[2021-06-13] MEDS: ONDANSETRON INJ 4 MG/2 ML VIAL IV PUSH (17:44)
[2021-06-13 17:45] LABS: Alanine Aminotransferase 17 U/L (4-35); Albumin Level 4.2 g/dL (3.5-5.1); Alkaline Phosphatase 93 U/L (38-126); Anion Gap 6 mmol/L (8-16); Aspartate Amino Transferase 22 U/L (14-36); Bilirubin,Total 0.8 mg/dL (0.2-1.3); Blood Urea Nitrogen 22 mg/dL (7-17); Calcium 8.8 mg/dL (8.4-10.2); Carbon Dioxide 25 mmol/L (22-30); Chloride 106 mmol/L (98-107); Estimated CRCL calculation 94 ml/min; Estimated Glomerular Filt Rate > 60; Glucose 100 mg/dL (65-110); Potassium 3.5 mmol/L (3.4-5.0); Sodium 137 mmol/L (137-145)
--- NOTE | 2021-06-13 18:30 | PM.IMHP ---
H&P: HPI History of Present Illness Date/Time: 06/13/21 18:30 Chief Complaint: Left hip pain after fall. Narrative: This is a very pleasant 56-year-old female with limb-girdle muscular dystrophy and hypertension who presented to the emergency department earlier today via EMS from home for evaluation of left hip pain after a fall. She is essentially wheelchair-bound but is able to stand and pivot although recently she has felt more weak in her limbs than usual which she believes is due to mesalamine that was prescribed to her a couple of months ago for colitis. About a week ago when transferring from her wheelchair to the toilet she felt very weak in her legs in knees and she suffered a fall in the bathroom in which she struck the left side of her face. She had to call EMS for lift assist but at that time she sustained no injuries and was not transported for evaluation. Since that time she has continued to feel weak and she admits that she has some anxiety when transferring to the toilet now due to that fall so she has been attempting to use a bedpan. This morning she stood from her wheelchair and family members put the bedpan under her though she was unable to sit down due to the height of the chair and she quickly became weak in the knees and she once again fell over onto her left side. She felt her left knee turn in and heard a pop and felt a discomfort in the left groin. Left hip x-ray done on arrival to the emergency department showed 5 mm posterior displacement of a left femoral transcervical fracture and she is being admitted in this setting. At the time my evaluation she has no specific complaints and reports that her pain is manageable. She denies head trauma and loss of consciousness in the fall and she does not think she sustained any other injuries although her left knee is a bit sore. Review of Systems Review of Systems: Twelve systems were reviewed. No fever, chills, or sweats. No recent cold or flu symptoms. No sick contacts. She denies chest pain shortness of breath. No cough. No nausea or vomiting. She typically suffers from constipation however since March she has had several bouts of loose stools a day and in fact she was found to have ascending colitis on colonoscopy at the end of March per Dr. Flores. She was started on mesalamine at that time but she has since stopped that after her fall last week as she thinks the drug may be to blame for her increasing weakness. No focal weakness or paresthesias. She has been having problems with ulnar neuropathy and has had bilateral lateral epicondyle injections recently with some benefit. Except as documented, all other systems were reviewed and are negative. [facility] Past Medical History Medical History (Updated 06/13/21 @ 22:12 by Aspen Garcia PA-C) Anemia Anxiety Arthritis Constipation Depression Hypertension Limb-girdle muscular dystrophy Surgical History Surgical History (Updated 06/13/21 @ 22:08 by Aspen Garcia PA-C) History of section History of colonoscopy (03/2021) Performed due to findings of ascending colon stricture on other imaging studies. No stricture was identified however colitis was noted in the ascending colon. Colonoscopy per Dr. Flores. History of open reduction and internal fixation (ORIF) procedure Repair of right humerus fracture. Family History Family History Father Myocardial infarction Hypertension Mother Carcinoma of colon Hypertension Stomach cancer with mets to the throat Sibling Brain tumor Sibling Hypertension Sibling Hypertension Grandparent Breast cancer Paternal grandmother - with mets to the colon Other Congestive heart failure Myocardial infarction Social History Social History (Updated 06/13/21 @ 22:09 by Aspen Garcia PA-C) Social History: Surrogate decision maker: Davonte Mehta, daughter. Code status: Full code. Smoking pa
[2021-06-13] MEDS: SODIUM CHLORIDE 0.9% IV 1,000 ML 125 ML IV CONT (20:52)
[2021-06-13] MEDS: fentaNYL CITRATE INJ (*CRX) 100 MCG/2 ML VIAL 50 MCG IV PUSH (20:59)
--- NOTE | 2021-06-13 21:47 | PM.CNOR ---
Assessment and Plan Additional Plan 56 yo with Garden 2 femoral neck fx Will proceed with insitu pinning NPO No anticoag after MN tonite Anesthesia consult Pt with a muscular dystrophy but has tolerated several anesthetics without problems per pt. History of Present Illness HPI Consult date: 06/13/21 Chief complaint: Left Hip Fracture Narrative: 56 yo with muscular dystrophy who fell from her WC and has a Garden 2 femoral neck fx on the left. She is a nonambulator who is WC bound for about 13 years. She does pivot transfers although she as fallen recently and may be losing this function. [facility] Past Medical History Medical History Anemia Anxiety Arthritis Claustrophobia Constipation Cough Depression Diarrhea Essential (primary) hypertension Hair loss Hypertension Lateral epicondylitis Light headedness Major depressive disorder, single episode, unspecified Muscular dystrophy, unspecified Paronychia Ulnar neuropathy Urinary frequency UTI (urinary tract infection) Wears glasses Weight gain Surgical History Surgical History History of History of shoulder surgery Family History Family History Father Myocardial infarction Hypertension Mother Carcinoma of colon Hypertension Stomach cancer with mets to the throat Sibling Brain tumor Sibling Hypertension Sibling Hypertension Grandparent Breast cancer Paternal grandmother - with mets to the colon Other Congestive heart failure Myocardial infarction Social History Social History Smoking packs per day: 0.5 Smoking cigarettes per day: 10.0 Years smoked: 37 Smoking pack-years: 18.50 Smoking status: Former smoker Tobacco type: cigarettes Smoking end date: 06/20/15 Alcohol intake: never Substance use: never Substance use type: does not use Gender identity (if verbalized by the patient): Female Spiritual care concerns: No Meds Home Medications and Allergies Home Medications Medication Instructions Recorded Confirmed Type acetaminophen [Tylenol Extra 500 mg PO PRN PRN 02/19/21 04/17/21 History Strength] bupropion HCl [Wellbutrin XL] 150 mg PO HS 02/19/21 04/17/21 History losartan 50 mg PO HS 02/19/21 04/17/21 History venlafaxine [Effexor XR] 75 mg PO HS 02/19/21 04/17/21 History baclofen 10 mg tablet See Rx Instructions .ROUTE 06/01/21 Rx .COMPLEX #90 tablet naproxen 06/13/21 History Allergies Allergy/AdvReac Type Severity Reaction Status Date / Time phenylpropanolamine Allergy Mild Unknown Verified 06/13/21 18:08 hydrocodone Allergy Unknown itching Verified 06/13/21 18:08 mesalamine AdvReac Mild muscle Verified 06/13/21 18:08 weakness phenylephrine AdvReac Mild Jittery Verified 06/13/21 18:08 azathioprine AdvReac Unknown Nausea Verified 06/13/21 18:08 codeine [Guaifen-C] AdvReac Unknown jittery Verified 06/13/21 18:08 erythromycin base AdvReac Unknown upset Verified 06/13/21 18:08 stomach morphine AdvReac Unknown Itching Verified 06/13/21 18:08 pseudoephedrine [Entex T] AdvReac Unknown jittery Verified 06/13/21 18:08 IMMUNOSUPPRESS Allergy Mild Unknown Uncoded 04/17/21 08:06 Vital Signs Vital Signs - 24 hr 06/13/21 15:41 06/13/21 15:42 06/13/21 15:45 Temperature 36.8 C Pulse Rate 106 H Respiratory Rate 18 Blood Pressure 179/98 H 180/76 H Pulse Oximetry 100 100 100 06/13/21 15:46 06/13/21 16:19 06/13/21 16:30 Temperature Pulse Rate Respiratory Rate Blood Pressure 188/80 H Pulse Oximetry 100 100 100 06/13/21 16:31 06/13/21 17:06 06/13/21 17:15 Temperature Pulse Rate Respiratory Rate Blood Pressure 175/96 H Pulse Oximetry 100 97 100 06/13/21 17:16 06/13/21 17:55 06/13/21 18:03 Temperature Pulse Rate 78
[2021-06-14] VITALS (13 sets, daily range): BP systolic 122–155; BP diastolic 67–83; PULSE 73–102; RESP 10–21; TEMP 36.4–36.8; O2SAT 94–100
[2021-06-14] MEDS: fentaNYL CITRATE INJ (*CRX) 100 MCG/2 ML VIAL 50 MCG IV PUSH (05:04)
[2021-06-14 05:31] LABS: Hematocrit 34.9 % (37.0-47.0); Hemoglobin 11.2 g/dL (12.0-15.0); Mean Corpuscular HGB Conc 32.1 g/dl (32-36); Mean Corpuscular Hemoglobin 29.6 pg (26-34); Mean Corpuscular Volume 92.3 fl (80-100); Mean Platelet Volume 9.4 fl (7.4-10.4); Platelet Count Result 234 k/mm3 (150-375); Red Blood Count 3.78 M/mm3 (4.2-5.4); Red Cell Distribution Width 13.2 % (11.5-14.5); White Blood Count 7.8 K/mm3 (4.5-10.0)
[2021-06-14 06:05] LABS: Anion Gap 5 mmol/L (8-16); Blood Urea Nitrogen 21 mg/dL (7-17); Calcium 7.9 mg/dL (8.4-10.2); Carbon Dioxide 21 mmol/L (22-30); Chloride 110 mmol/L (98-107); Creatine Kinase 37 U/L (30-135); Estimated CRCL calculation 128 ml/min; Estimated Glomerular Filt Rate > 60; Glucose 101 mg/dL (65-110); Magnesium 1.5 mg/dL (1.6-2.3); Sodium 136 mmol/L (137-145)
--- NOTE | 2021-06-14 06:42 | WPDANESEPP ---
Anes - Eval Pre Procedure Procedure: Operation Date: 06/14/21 09:00 Proposed Procedures p Hip Pinning Cannulated Screws - Dinh Vergara MD Date/Time: 06/14/21 06:42 Pre Op Diagnosis: Left Hip Fracture Patient Data Age: 56 Gender: F Height: 1.65 m Weight: 108 kg Last Vital Signs Temp 36.6 C 06/14/21 00:00 Pulse 91 06/14/21 00:00 Resp 16 06/14/21 00:00 BP 135/70 06/14/21 00:00 Pulse Ox 96 06/14/21 00:00 Allergies Allergy/AdvReac Type Severity Reaction Status Date / Time phenylpropanolamine Allergy Mild Unknown Verified 06/13/21 18:08 hydrocodone Allergy Unknown itching Verified 06/13/21 18:08 mesalamine AdvReac Mild muscle Verified 06/13/21 18:08 weakness phenylephrine AdvReac Mild Jittery Verified 06/13/21 18:08 azathioprine AdvReac Unknown Nausea Verified 06/13/21 18:08 codeine [Guaifen-C] AdvReac Unknown jittery Verified 06/13/21 18:08 erythromycin base AdvReac Unknown upset Verified 06/13/21 18:08 stomach morphine AdvReac Unknown Itching Verified 06/13/21 18:08 pseudoephedrine [Entex T] AdvReac Unknown jittery Verified 06/13/21 18:08 IMMUNOSUPPRESS Allergy Mild Unknown Uncoded 04/17/21 08:06 Home Medications Medication Instructions Recorded Confirmed Type acetaminophen [Tylenol Extra 500 mg PO PRN PRN 02/19/21 04/17/21 History Strength] bupropion HCl [Wellbutrin XL] 150 mg PO HS 02/19/21 04/17/21 History losartan 50 mg PO HS 02/19/21 04/17/21 History venlafaxine [Effexor XR] 75 mg PO HS 02/19/21 04/17/21 History baclofen 10 mg tablet See Rx Instructions .ROUTE 06/01/21 Rx .COMPLEX #90 tablet naproxen 06/13/21 History Laboratory Tests 06/13/21 06/13/21 06/13/21 17:28 17:28 17:29 WBC 11.3 K/mm3 H K/mm3 (4.5-10.0) RBC 4.12 M/mm3 L M/mm3 (4.2-5.4) Hgb 12.3 g/dL g/dL (12.0-15.0) Hct 37.8 % % (37.0-47.0) MCV 91.7 fl fl (80-100) MCH 29.9 pg pg (26-34) MCHC 32.5 g/dl g/dl (32-36) RDW 13.2 % % (11.5-14.5) Plt Count 272 k/mm3 k/mm3 (150-375) MPV 9.2 fl fl (7.4-10.4) Immature Gran % (Auto) 0.4 % % (0-0.5) Neut % (Auto) 82.5 % H % (45.5-73.1) Lymph % (Auto) 11.6 % L % (18.3-44.2) [place] % (Auto) 4.1 % % (2.6-8.5) Eos % (Auto) 1.0 % % (0-4.4) Baso % (Auto) 0.4 % % (0.2-1.2) Lymph # (Auto) 1.31 K/mm3 K/mm3 (0.9-3.2) [place] # (Auto) 0.5 K/mm3 K/mm3 (0.1-0.6) Eos # (Auto) 0.1 K/mm3 K/mm3 (0-0.3) Baso # (Auto) 0.0 K/mm3 K/mm3 (0.0-0.1) Abs Immat Gran (auto) 0.05 K/mm3 H K/mm3 (0.00-0.031) Absolute Neuts (auto) 9.4 K/mm3 H K/mm3 (1.3-6.7) Absolute Nucleated RBC 0.0 K/mm3 K/mm3 (0.0-0.012) Nucleated RBC % 0.0 % % (0.0-0.2) PT 12.9 Seconds Seconds (11.1-14.7) INR 1.0 APTT 29.0 SECONDS SECONDS (22.3-36.8) Sodium 137 mmol/L mmol/L (137-145) Potassium 3.5 mmol/L mmol/L (3.4-5.0) Chloride 106 mmol/L mmol/L (98-107) Carbon Dioxide 25 mmol/L mmol/L (22-30) Anion Gap 6 mmol/L L mmol/L (8-16) BUN 22 mg/dL H mg/dL (7-17) Creatinine 0.70 mg/dL mg/dL (0.7-1.0) Estim Creat Clear Calc 94 ml/min ml/min Estimated GFR > 60 (59 - ) Glucose 100 mg/dL mg/dL (65-110) Calcium 8.8 mg/dL mg/dL (8.4-10.2) Magnesium Total Bilirubin 0.8 mg/dL mg/dL (0.2-1.3) AST 22 U/L U/L (14-36) ALT 17 U/L U/L (4-35) Alkaline Phosphatase 93 U/L U/L (38-126) Total Creatine Kinase Total Protein 7.0 g/dL g/dL (6.3-8.2) Albumin 4.2 g/dL g/dL (3.5-5.1) TSH (Reflex) 06/14/21 06/14/21 06/14/21 05:25 05:25 05:25 WBC 7.8 K/mm3 K/mm3 (4.5-10.0) RBC 3.78 M/mm
--- NOTE | 2021-06-14 08:37 | PC.NURSE ---
Patient down to surgery
--- NOTE | 2021-06-14 08:46 | WPDHPUPDATE1 ---
History and Physical Update Update Date/Time: 06/14/21 08:46 History and Physical has been reviewed, including an updated exam of the patient. There are NO changes in the patient's condition. Risks, benefits, and alternatives have been discussed and questions answered. Patient agrees to proceed with procedure.
--- NOTE | 2021-06-14 08:55 | WPDANESEFPP ---
Anes - Eval Final PreProcedure Day of Procedure 06/14/21 08:55 Patient weight: obese Heart: regular rate and rhythm Lungs: clear to auscultation Airway: Mallampati scale class II Neurological: alert and oriented Last oral intake: >/= 8 hours ASA classification: III Emergent: no Anesthetic plan: proceed Anesthesia type and monitoring: general LMA and standard monitoring Results Review: All pre-operative results and documents have been reviewed as part of the pre-operative evaluation. Informed Consent: The patient's anesthetic plan and its attendant risks and benefits were discussed with the patient/family/POA. Questions were solicited and answers provided to the satisfaction of the patient/family/POA.
[2021-06-14] MEDS: ceFAZolin 2 GM/D5W 50 ML 2 GM/50 ML BAG IVPB (08:59)
[2021-06-14] MEDS: LACTATED RINGERS 1,000 ML 30 ML IV CONT (09:00)
--- NOTE | 2021-06-14 10:22 | P.OP_ITS ---
Procedure Note - Detailed Date of Procedure 06/14/21 Pre-op Diagnosis Left Hip Fracture Garden 2 Post-op Diagnosis same Procedure Performed insitu pinning of left femoral neck fracture Surgeon Dinh Vergara MD Cutting Machine Offbearer Love Bah general Indications Garden 2 fx in pt with muscular dystrophy non-ambulator Description of Procedure The patient was identified and brought to the operating room and placed on a fracture table. She was positioned with the well leg in an Giacomo stirrup. The left affected hip was placed in gentle traction. She was internally rotated to facilitate internal fixation. She was sterilely prepped and draped in the usual fashion after an and adequate reduction had been achieved. I marked the skin under fluoroscopy. A surgical time in and time-out was performed. We confirmed this was the correct patient and the correct side. All the equipment necessary for the proposed procedure was available. She had received 2 g of IV antibiotics. A 1 cm incision was then made over the lateral aspect of the thigh overlying the greater trochanter. The guide pin was placed inferiorly as the apex of the triangular configuration. The superior guide pins were then placed parallel to the 1st pin. These were checked under fluoroscopy and found to be in a good position. On the AP they were well centered in the femoral head. On the lateral x-ray they were just slightly posterior. They were all well within the femoral head. She was then drilled measured and appropriately sized short- threaded 7.3 cannulated screws were placed. The inferior-most screw and the posterior of the 2 superior screws had washers. I was able to tighten and Pre- compressed the fracture with these 2 screws. There was not enough room laterally to place a washer on the 3rd screw. A 90 mm screw was placed inferiorly in the 2 superior screws were 80 mm. The wound was then copiously irrigated. We confirmed that the screws were in good position and holding the fracture in appropriate alignment for healing. The fracture was Pre- compressed. The incision was then closed with 4 0 Vicryl suture. A silver dressing was applied. There was minimal blood loss and the patient returned to the recovery room in stable condition. Estimated Blood Loss 20 Drains No Packing No Pathology none sent Complications No immediate complications Condition stable Disposition PACU
[2021-06-14] MEDS: fentaNYL CITRATE INJ (*CRX) 100 MCG/2 ML VIAL 25 MCG IV PUSH ×5 (10:34→11:11)
--- NOTE | 2021-06-14 11:03 | SUR.PHASEI ---
1046 xrays of left hip done,dr chavez here to see results.
--- NOTE | 2021-06-14 13:21 | PM.IMPN ---
Progress Note: A&P Assessment and Plan (1) Closed left hip fracture: Qualifiers: Encounter type: initial encounter Qualified Code(s): S72.002A - Fracture of unspecified part of neck of left femur, initial encounter for closed fracture Code(s): S72.002A - Fracture of unspecified part of neck of left femur, initial encounter for closed fracture Status: Acute Assessment and Plan: Patient sustained a fall at home prior to arrival and had left hip pain was brought to the ER for further evaluation. X-ray showed 5 mm posterior displacement of a left femoral transcervical fracture. Dr. Vergara was consulted and performed an ORIF of her left femoral neck fracture Patient is doing well at this time after surgery, eating and drinking without any issues, resting comfortably on room air. Pain management, Discharge planning, Post-op care, DVT Prophylaxis per Dr. Vergara Ortho Surgeon Continue monitoring. 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 (3) Hypertension: Code(s): I10 - Essential (primary) hypertension Status: Chronic Assessment and Plan: Blood pressure stable 132/76. Continue home medications. (4) Depression with anxiety: Code(s): F41.8 - Other specified anxiety disorders Status: Acute Assessment and Plan: Continue home medications. Time Spent With Patient Time with patient: 25 - 35 minutes Subjective Date/time seen: 12/26/21 13:21 Interval history: Date of service 06/14/2021: Patient reports feeling well after her surgery today. She is having only minimal pain to her left hip. She is eating and drinking her lunch without any issues. Denies any fevers, chills, nausea, vomiting, abdominal pain, constipation, diarrhea, chest pain, shortness of breath, cough, leg swelling, calf pain, or any other symptoms at this time. Review of Systems Review of Systems: All systems reviewed & are unremarkable except as noted in HPI and below Exam Narrative: General: 56-year-old woman sitting up in bed eating lunch. Appears comfortable after surgery. In no acute distress. Skin: No jaundice or cyanosis. Good skin turgor. Neck: Full range of motion. Supple. Respiratory: Lungs are clear to auscultation bilaterally. No bony chest wall tenderness. Cardiovascular: The heart has a regular rate and rhythm without murmur. Lower extremities: No lower extremity edema. Distal pulses are easily palpated. No calf tenderness to palpation. Gastrointestinal: The abdomen is soft, nontender and nondistended with active bowel sounds. Psychiatric: Lucid and oriented. Memory intact. Neurologic: No focal deficits. Speech is clear. No facial drooping. Objective Data Vital Signs Vital Signs: Vital Signs - 24 hr 06/13/21 15:41 06/13/21 15:42 06/13/21 15:45 Temperature 98.3 F Pulse Rate 106 H Respiratory Rate 18 Blood Pressure 179/98 H 180/76 H Pulse Oximetry 100 100 100 06/13/21 15:46 06/13/21 16:19 06/13/21 16:30 Temperature Pulse Rate Respiratory Rate Blood Pressure 188/80 H Pulse Oximetry 100 100 100 06/13/21 16:31 06/13/21 17:06 06/13/21 17:15 Temperature Pulse Rate Respiratory Rate Blood Pressure 175/96 H Pulse Oximetry 100 97 100 06/13/21 17:16 06/13/21 17:55 06/13/21 18:03 Temperature Pulse Rate 78 Respiratory Rate 18 Blood Pressure 171/95 H Pulse Oximetry 100 99 100 06/13/21 18:15 06/13/21 22:00 06/14/21 00:00 Temperature 97.5 F L 98 F Pulse Rate 78 95 91 Respiratory Rate 18 166 H 16 Blood Pressure 150/88 H 153/71 H 135/70 Pulse Oximetry 98 100 96 06/14/21 06:00 06/14/21 1
[2021-06-14] MEDS: MORPHINE SULFATE (*CRX) 4 MG/ML INJ 3 MG IV PUSH (14:41)
[2021-06-14] MEDS: diphenhydrAMINE HCl INJ 50 MG/ML VIAL 25 MG IV PUSH ×2 (14:43→21:53)
[2021-06-14] MEDS: MAGNESIUM SULFATE 3GM/D5W100ML 3 GM/100 ML BAG IVPB (14:44)
[2021-06-14 15:05] LABS: Add Urine Microscopic? YES; Appearance Urine Clear (Clear); Bilirubin Urine Negative (Negative); Blood Urine Negative (Negative); Color Urine Yellow (Yellow); Glucose Urine UA Negative (Negative); Ketones Urine Negative (Negative); Leukocyte Esterase Ur 3+ LEU/UL (Negative); Mucus Urine Rare /lpf; Nitrate Urine Negative (Negative); Protein Urine Negative (Negative); Specific Grav Ur 1.013 (1.001-1.035); Squamous Epithelial Cell Urine Rare /hpf (Few); Urobilinogen Urine Negative mg/dL (<2.0); WBC Urine 51-75 /hpf
[2021-06-14] MEDS: traMADol HCL (*CRX) 50 MG TABLET PO (18:08)
[2021-06-14] MEDS: buPROPion HCL XL (24 HR) 150 MG TABCR PO (21:51)
[2021-06-14] MEDS: BACLOFEN 10 MG TABLET BY MOUTH (21:53)
[2021-06-14] MEDS: VENLAFAXINE HCL XR 75 MG CAP.ER.24H PO (21:53)
[2021-06-14] MEDS: LOSARTAN POTASSIUM 50 MG TABLET PO (21:53)
[2021-06-14] MEDS: HYDROcodone/acetaminophen (*CRX) 5-325 MG TABLET 1 TAB PO (21:53)
[2021-06-15] MEDS: MORPHINE SULFATE (*CRX) 4 MG/ML INJ 3 MG IV PUSH ×2 (00:55→20:32)
[2021-06-15 06:24] LABS: Hematocrit 33.7 % (37.0-47.0); Hemoglobin 10.4 g/dL (12.0-15.0); Mean Corpuscular HGB Conc 30.9 g/dl (32-36); Mean Corpuscular Volume 93.9 fl (80-100); Mean Platelet Volume 9.8 fl (7.4-10.4); Platelet Count Result 257 k/mm3 (150-375); Red Blood Count 3.59 M/mm3 (4.2-5.4); Red Cell Distribution Width 13.3 % (11.5-14.5); White Blood Count 8.3 K/mm3 (4.5-10.0)
[2021-06-15] MEDS: BACLOFEN 10 MG TABLET BY MOUTH ×3 (06:33→21:46)
[2021-06-15] MEDS: HYDROcodone/acetaminophen (*CRX) 5-325 MG TABLET 1 TAB PO ×3 (06:33→13:54)
[2021-06-15] MEDS: diphenhydrAMINE HCl INJ 50 MG/ML VIAL 25 MG IV PUSH ×2 (06:33→13:57)
[2021-06-15 06:38] LABS: Anion Gap 4 mmol/L (8-16); Blood Urea Nitrogen 15 mg/dL (7-17); Calcium 7.9 mg/dL (8.4-10.2); Carbon Dioxide 22 mmol/L (22-30); Chloride 107 mmol/L (98-107); Estimated CRCL calculation 128 ml/min; Estimated Glomerular Filt Rate > 60; Glucose 95 mg/dL (65-110); Magnesium 2.3 mg/dL (1.6-2.3); Potassium 4.1 mmol/L (3.4-5.0); Sodium 133 mmol/L (137-145)
--- NOTE | 2021-06-15 07:40 | P.PNAN_ITS ---
Anes - Prog Note Post-Op Date/Time: 06/15/21 07:40 Cardiovascular status: normal Respiratory status: normal Airway patency: baseline Mental status: baseline Post-Op hydration status: normal Vital Signs: Last Vital Signs Temp 97.9 F 06/14/21 22:06 Pulse 102 H 06/14/21 22:06 Resp 20 06/14/21 22:06 BP 134/76 06/14/21 22:06 Pulse Ox 97 06/14/21 22:06 Pain Score (VAS): 0 I/O: Intake & Output 06/14/21 06/14/21 06/15/21 15:59 23:59 07:59 Intake Total 690 290 720 Output Total 60 600 300 Balance 630 -310 420 Laboratory Tests 06/15/21 05:54 06/15/21 05:54 06/14/21 06/14/21 06/15/21 12:00 14:46 05:54 WBC 8.3 RBC 3.59 L Hgb 10.4 L Hct 33.7 L MCV 93.9 MCH 29.0 MCHC 30.9 L RDW 13.3 Plt Count 257 MPV 9.8 Sodium Potassium Chloride Carbon Dioxide Anion Gap BUN Creatinine Estim Creat Clear Calc Estimated GFR Glucose Calcium Magnesium TSH (Reflex) 2.150 Urine Color Yellow Urine Appearance Clear Urine pH 6.0 Ur Specific [place] 1.013 Urine Protein Negative Urine Glucose (UA) Negative Urine Ketones Negative Ur Blood (Man) Negative Urine Nitrate Negative Urine Bilirubin Negative Urine Urobilinogen Negative Leukocyte Esterase Rfl 3+ H Urine RBC 3-5 H Urine WBC 51-75 H Ur Squamous Epith Cells Rare Urine Mucus Rare 06/15/21 05:54 WBC RBC Hgb Hct MCV MCH MCHC RDW Plt Count MPV Sodium 133 L Potassium 4.1 Chloride 107 Carbon Dioxide 22 Anion Gap 4 L BUN 15 D Creatinine 0.50 L Estim Creat Clear Calc 128 Estimated GFR > 60 Glucose 95 Calcium 7.9 L Magnesium 2.3 TSH (Reflex) Urine Color Urine Appearance Urine pH Ur Specific [place] Urine Protein Urine Glucose (UA) Urine Ketones Ur Blood (Man) Urine Nitrate Urine Bilirubin Urine Urobilinogen Leukocyte Esterase Rfl Urine RBC Urine WBC Ur Squamous Epith Cells Urine Mucus Patient Feedback: Patient satisfied with anesthetic care.
[2021-06-15 07:52] VITALS: BP 109/55; PULSE 93; RESP 18; TEMP 36.1; O2SAT 97
--- NOTE | 2021-06-15 08:16 | PM.PNORT ---
Progress Note: A&P Additional Plan POD# 1 doing well SNF for D/C Strict NWB on LEft lower extremity will need adaptive equipment at home F/U with LEb 10 days to 2 weeks post-op for re-check with xrays. ASA 325 mg qD for 30 days for DVT proph. Subjective Subjective Date/Time Seen: 06/15/21 08:16 Interval history: Pt is POD# 1 insitu pinning of left femoral neck fx. Sitting up in bed. Pain is well controlled. 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 Objective Data Vital Signs Vital Signs: Vital Signs - 24 hr 06/14/21 10:25 06/14/21 10:40 06/14/21 10:55 Temperature 36.4 C L Pulse Rate 78 73 81 Respiratory Rate 21 H 10 L 11 L Blood Pressure 155/83 H 147/76 H 147/76 H Pulse Oximetry 100 100 95 06/14/21 11:10 06/14/21 11:25 06/14/21 11:39 Temperature Pulse Rate 76 79 88 Respiratory Rate 10 L 14 15 Blood Pressure 122/76 131/74 132/76 Pulse Oximetry 95 94 99 06/14/21 12:03 06/14/21 12:18 06/14/21 14:35 Temperature 36.6 C 36.4 C 36.6 C Pulse Rate 84 78 88 Respiratory Rate 16 14 16 Blood Pressure 150/78 H 144/77 H 135/67 Pulse Oximetry 100 99 100 06/14/21 18:00 06/14/21 22:06 06/15/21 07:52 Temperature 36.8 C 36.6 C 36.1 C L Pulse Rate 94 102 H 93 Respiratory Rate 14 20 18 Blood Pressure 131/68 134/76 109/55 L Pulse Oximetry 98 97 97 Intake/Output Intake/Output: Intake & Output 06/12/21 06/13/21 06/14/21 06/15/21 23:59 23:59 23:59 23:59 Intake Total 2985 720 Output Total 2160 300 Balance 825 420 Meds/Results Medications: Active Medications Generic Name Dose Route Start Last Admin Trade Name Freq PRN Reason Stop Dose Admin Acetaminophen 500 mg 06/14/21 11:42 Acetaminophen 500 Mg Tablet PO Q6H PRN Mild Pain (1-3) Hydrocodone Bitart/Acetaminophen 1 tab 06/14/21 15:02 06/15/21 06:33 Hydrocodone/Acetaminophen (*Crx) 5-325 Mg Tablet PO 1 tab Q4H PRN Administration Pain Rated 7-10 Aspirin 325 mg 06/15/21 08:00 Aspirin 325 Mg Tablet PO DAILY@0800 BENTLEY Baclofen 10 mg 06/14/21 14:00 06/15/21 06:33 Baclofen 10 Mg Tablet BY MOUTH 10 mg Q8HR BENTLEY Administration Bupropion HCl 150 mg 06/14/21 21:00 06/14/21 21:51 Bupropion Hcl Xl (24 Hr) 150 Mg Tabcr PO 150 mg HS BENTLEY Administration Diphenhydramine HCl 25 mg 06/14/21 13:55 06/15/21 06:33 Diphenhydramine Hcl Inj 50 Mg/Ml Vial IV PUSH 25 mg Q6H PRN Administration Itching Losartan Potassium 50 mg 06/14/21 21:00 06/14/21 21:53 Losartan Potassium 50 Mg Tablet PO 50 mg HS BENTLEY Administration Morphine Sulfate 3 mg 06/14/21 15:02 06/15/21 00:55 Morphine Sulfate (*Crx) 4 Mg/Ml Inj IV PUSH 3 mg Q2H PRN Administration Severe uncontrolled pain Ondansetron HCl 4 mg 06/13/21 18:07 Ondansetron Inj 4 Mg/2 Ml Vial IV PUSH Q4H PRN Nausea Tramadol HCl 50 mg 06/14/21 15:02 06/14/21 18:08 Tramadol Hcl (*Crx) 50 Mg Tablet PO 50 mg Q4H PRN Administration Pain Rated 4-6 Venlafaxine HCl 75 mg 06/14/21 21:00 06/14/21 21:53 Venlafaxine Hcl Xr 75 Mg Cap.Er.24h PO 75 mg HS BENTLEY Administration Radiology Results: ITS Impressions Chest X-Ray 06/13/21 17:35 IMPRESSION: 1. No acute cardiopulmonary disease. Knee X-Ray 06/13/21 19:42 IMPRESSION: 1. Negative left knee radiographs. Hip/Pelvis X-Ray 06/14/21 11:24 IMPRESSION: ORIF left subcapital femoral neck fracture Intraoperative X-Ray 06/14/21 11:26 IMPRESSION: ORIF left subcapital femoral neck fracture Labs Labs: Laboratory Results - last 24 hr 06/14/21 06/14/21 06/15/21 12:00 14:46 05:54 WBC 8.3 RBC 3.59 L Hgb 10.4 L Hct 33.7 L MCV 93.9 MCH 29.0 MCHC 30.9 L RDW 13.3 Plt Count 257 MPV 9.8 Sodium Potassium Chloride Carbon Dioxide
[2021-06-15] MEDS: ASPIRIN 325 MG TABLET PO (08:19)
[2021-06-15 08:26] VITALS: BMI 11.0
--- NOTE | 2021-06-15 09:50 | PM.IMPN ---
Progress Note: A&P Assessment and Plan (1) Closed left hip fracture: Qualifiers: Encounter type: initial encounter Qualified Code(s): S72.002A - Fracture of unspecified part of neck of left femur, initial encounter for closed fracture Code(s): S72.002A - Fracture of unspecified part of neck of left femur, initial encounter for closed fracture Status: Acute Assessment and Plan: Patient sustained a fall at home prior to arrival and had left hip pain was brought to the ER for further evaluation. X-ray showed 5 mm posterior displacement of a left femoral transcervical fracture. Dr. Vergara was consulted and performed an ORIF of her left femoral neck fracture Patient is doing well at this time after surgery, eating and drinking without any issues, resting comfortably on room air. Pain management, Discharge planning, Post-op care, DVT Prophylaxis per Dr. Vergara Ortho Surgeon Working on SNF placement Continue monitoring. 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 (3) Hypertension: Code(s): I10 - Essential (primary) hypertension Status: Chronic Assessment and Plan: Blood pressure stable 109/55 Continue home medications. (4) Depression with anxiety: Code(s): F41.8 - Other specified anxiety disorders Status: Acute Assessment and Plan: Continue home medications. Time Spent With Patient Time with patient: 25 - 35 minutes Subjective Date/time seen: 06/15/21 09:50 Interval history: Date of service 06/15/2021: Patient reports feeling well other than having pain after working with therapy. She is having only minimal pain to her left hip at this time while lying in bed. She is eating and drinking her lunch without any issues. Denies any fevers, chills, nausea, vomiting, abdominal pain, constipation, diarrhea, chest pain, shortness of breath, cough, leg swelling, calf pain, or any other symptoms at this time. Review of Systems Review of Systems: All systems reviewed & are unremarkable except as noted in HPI and below Exam Narrative: General: 56-year-old woman sitting up in bed watching TV. In no acute distress. Skin: No jaundice or cyanosis. Good skin turgor. Neck: Full range of motion. Supple. Respiratory: Lungs are clear to auscultation bilaterally. No bony chest wall tenderness. Cardiovascular: The heart has a regular rate and rhythm without murmur. Lower extremities: Left hip dressing is normal, no drainage, no bruising noted. No lower extremity edema. Distal pulses are easily palpated. No calf tenderness to palpation. Gastrointestinal: The abdomen is soft, nontender and nondistended with active bowel sounds. Psychiatric: Lucid and oriented. Memory intact. Neurologic: No focal deficits. Speech is clear. No facial drooping. Objective Data Vital Signs Vital Signs: Vital Signs - 24 hr 06/14/21 10:25 06/14/21 10:40 06/14/21 10:55 Temperature 97.5 F L Pulse Rate 78 73 81 Respiratory Rate 21 H 10 L 11 L Blood Pressure 155/83 H 147/76 H 147/76 H Pulse Oximetry 100 100 95 06/14/21 11:10 06/14/21 11:25 06/14/21 11:39 Temperature Pulse Rate 76 79 88 Respiratory Rate 10 L 14 15 Blood Pressure 122/76 131/74 132/76 Pulse Oximetry 95 94 99 06/14/21 12:03 06/14/21 12:18 06/14/21 14:35 Temperature 97.9 F 97.6 F 97.8 F Pulse Rate 84 78 88 Respiratory Rate 16 14 16 Blood Pressure 150/78 H 144/77 H 135/67 Pulse Oximetry 100 99 100 06/14/21 18:00 06/14/21 22:06 06/15/21 07:52 Temperature 98.3 F 97.9 F 97.0 F L Pulse Rate 94 102 H 93 Respiratory Rate 14 20 18 Blood Pressure 131/68 134/76 109/55 L Pulse Oximetry 98 9
--- NOTE | 2021-06-15 10:42 | PCPTNOTE ---
Attempted to see patient for PT at this time, however patient declined due to patient fatigue from working with OT.
[2021-06-15 16:00] VITALS: BP 130/68; PULSE 96; RESP 18; TEMP 37.1; O2SAT 98
[2021-06-15 19:29] VITALS: BP 106/59; PULSE 86; RESP 18; TEMP 36.6; O2SAT 98
[2021-06-15 20:00] VITALS: PULSE 86; RESP 18; O2SAT 98
[2021-06-15] MEDS: buPROPion HCL XL (24 HR) 150 MG TABCR PO (20:34)
[2021-06-15] MEDS: VENLAFAXINE HCL XR 75 MG CAP.ER.24H PO (20:34)
[2021-06-15] MEDS: LOSARTAN POTASSIUM 50 MG TABLET PO (20:35)
[2021-06-16] MEDS: BACLOFEN 10 MG TABLET BY MOUTH (05:39)
[2021-06-16] MEDS: MORPHINE SULFATE (*CRX) 4 MG/ML INJ 3 MG IV PUSH ×2 (05:42→11:57)
[2021-06-16] MEDS: diphenhydrAMINE HCl INJ 50 MG/ML VIAL 25 MG IV PUSH ×2 (05:52→11:57)
[2021-06-16 07:44] VITALS: BP 134/83; PULSE 101; RESP 18; TEMP 36.1; O2SAT 98
[2021-06-16] MEDS: ASPIRIN 325 MG TABLET PO (08:36)
--- NOTE | 2021-06-16 09:33 | PM.IMPN ---
Progress Note: A&P Assessment and Plan (1) Closed left hip fracture: Qualifiers: Encounter type: initial encounter Qualified Code(s): S72.002A - Fracture of unspecified part of neck of left femur, initial encounter for closed fracture Code(s): S72.002A - Fracture of unspecified part of neck of left femur, initial encounter for closed fracture Status: Acute Assessment and Plan: Patient sustained a fall at home prior to arrival and had left hip pain was brought to the ER for further evaluation. X-ray showed 5 mm posterior displacement of a left femoral transcervical fracture. Dr. Vergara was consulted and performed an ORIF of her left femoral neck fracture Patient is doing well at this time after surgery, eating and drinking without any issues, resting comfortably on room air. Pain management, Discharge planning, Post-op care, DVT Prophylaxis per Dr. Vergara Ortho Surgeon Working on SNF placement Continue monitoring. 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 (3) Hypertension: Code(s): I10 - Essential (primary) hypertension Status: Chronic Assessment and Plan: Blood pressure stable 109/55 Continue home medications. (4) Depression with anxiety: Code(s): F41.8 - Other specified anxiety disorders Status: Acute Assessment and Plan: Continue home medications. Additional Plan She will be NPO after midnight for surgical fixation per Dr. Vergara tomorrow morning. Analgesics available as needed. Initiate fall precautions. Blood pressures were reviewed and they have been running a bit high, likely due to pain. Her home medications will be reviewed and resumed as appropriate. Subjective Date/time seen: 06/16/21 09:33 Interval history: Date of service 06/15/2021: Patient reports feeling well other than having pain after working with therapy. She is having only minimal pain to her left hip at this time while lying in bed. She is eating and drinking her lunch without any issues. Denies any fevers, chills, nausea, vomiting, abdominal pain, constipation, diarrhea, chest pain, shortness of breath, cough, leg swelling, calf pain, or any other symptoms at this time. D# 1 doing well SNF for D/C Strict NWB on LEft lower extremity will need adaptive equipment at home F/U with LEb 10 days to 2 weeks post-op for re-check with xrays. ASA 325 mg qD for 30 days for DVT proph. Review of Systems Review of Systems: All systems reviewed & are unremarkable except as noted in HPI and below Constitutional: Constitutional: Denies excessive sweating, Denies headache(s), Denies increased appetite, Denies snoring and Denies weight gain Eyes: Eyes: Denies exophthalmos, Denies diplopia, Denies floaters and Denies loss of peripheral vision ENT: Denies facial pain, Denies headache(s), Denies odynophagia and Denies tinnitus Respiratory: Respiratory: Denies snoring Gastrointestinal: Gastrointestinal: Denies odynophagia Neurologic: Denies headache(s) Endocrine: Endocrine: Denies excessive sweating Exam Narrative: General: 56-year-old woman sitting up in bed watching TV. In no acute distress. Skin: No jaundice or cyanosis. Good skin turgor. Neck: Full range of motion. Supple. Respiratory: Lungs are clear to auscultation bilaterally. No bony chest wall tenderness. Cardiovascular: The heart has a regular rate and rhythm without murmur. Lower extremities: Left hip dressing is normal, no drainage, no bruising noted. No lower extremity edema. Distal pulses are easily palpated. No calf tenderness to palpation. Gastrointestinal: The abdomen is soft, nontender and nondistende
[2021-06-16 09:57] VITALS: BMI 10.0
[2021-06-16 12:18] LABS: Hematocrit 33.5 % (37.0-47.0); Hemoglobin 10.4 g/dL (12.0-15.0); Mean Corpuscular Hemoglobin 29.4 pg (26-34); Mean Corpuscular Volume 94.6 fl (80-100); Mean Platelet Volume 9.7 fl (7.4-10.4); Platelet Count Result 217 k/mm3 (150-375); Red Blood Count 3.54 M/mm3 (4.2-5.4); Red Cell Distribution Width 13.2 % (11.5-14.5); White Blood Count 8.4 K/mm3 (4.5-10.0)
[2021-06-16 12:31] LABS: Alanine Aminotransferase 11 U/L (4-35); Albumin Level 3.4 g/dL (3.5-5.1); Alkaline Phosphatase 66 U/L (38-126); Anion Gap 7 mmol/L (8-16); Aspartate Amino Transferase 21 U/L (14-36); Bilirubin,Total 0.8 mg/dL (0.2-1.3); Blood Urea Nitrogen 12 mg/dL (7-17); Calcium 8.3 mg/dL (8.4-10.2); Carbon Dioxide 26 mmol/L (22-30); Chloride 104 mmol/L (98-107); Estimated CRCL calculation 155 ml/min; Estimated Glomerular Filt Rate > 60; Glucose 107 mg/dL (65-110); Potassium 4.2 mmol/L (3.4-5.0); Sodium 137 mmol/L (137-145)
--- NOTE | 2021-06-16 12:39 | PM.DS ---
DS: Admitting Diagnosis Discharge Date 06/16/2021 Admitting Diagnosis Fall and Left Femoral Fracture DS: Discharge Diagnosis Discharge Diagnosis (1) Closed left hip fracture: Qualifiers: Encounter type: initial encounter Qualified Code(s): S72.002A - Fracture of unspecified part of neck of left femur, initial encounter for closed fracture Code(s): S72.002A - Fracture of unspecified part of neck of left femur, initial encounter for closed fracture Status: Acute Assessment and Plan: Patient sustained a fall at home prior to arrival and had left hip pain was brought to the ER for further evaluation. X-ray showed 5 mm posterior displacement of a left femoral transcervical fracture. Dr. Vergara was consulted and performed an ORIF of her left femoral neck fracture Patient is doing well at this time after surgery, eating and drinking without any issues, resting comfortably on room air. Pain management, Discharge planning, Post-op care, DVT Prophylaxis per Dr. Vergara Ortho Surgeon Working on SNF placement - prior auth approved. patient to d/c for rehab to [facility]. 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 Further monitoring at after discharge. (3) Hypertension: Code(s): I10 - Essential (primary) hypertension Status: Chronic Assessment and Plan: Blood pressure stable 109/55 , 106/59, 134/83 with HR 80-100. Regular. Continue home medications. Further monitoring at after discharge. (4) Depression with anxiety: Code(s): F41.8 - Other specified anxiety disorders Status: Acute Assessment and Plan: Continue home medications. euthymic today. pleasant conversations. Further monitoring at after discharge. (5) E-coli UTI: Code(s): N39.0 - Urinary tract infection, site not specified; B96.20 - Unspecified Escherichia coli [E. coli] as the cause of diseases classified elsewhere Status: Acute Assessment and Plan: Patient has an E.Coli UTI sensitive to Rocephin patient denies any urinary s/s. no fevers, WBC wnl at 8.3. Creatinine 0.50, urine output 1L today. ordered 1 gm IV Rocephin for now. she has only received 1 day of IV antibiotics, so she was discharge on PO antibiotics. Patient instructed at discharge: Be SURE to finish her antibiotics Cefdinir as prescribed for a full treatment. Get a Urine Culture done in 14-18 days to be certain UTI fully resolved, around July 03, 2021. Be sure to call and follow up with your Primary Care provider in 3-14 days. DS: Summary Hospital Course Hospital Course: Left ORIF with Orthopedic Surgeon Dr. Vergara, recovered well, discharged to Rehab for more therapy. E.Coli UTI found on cx, treated with IV antibiotics and discharged on oral antibiotics. PCP to follow up on repeating urine culture. She is to have LEFT nonweight bearing rehab /PT/OT at . Time Spent with Patient Time attestation: Total time spent providing and/or coordinating discharge services:45 minutes Exam Narrative: General: 56-year-old woman sitting up in bed watching TV. In no acute distress. Skin: No jaundice or cyanosis. Good skin turgor. Neck: Full range of motion. Supple. Respiratory: Lungs are clear to auscultation bilaterally. No bony chest wall tenderness. Cardiovascular: The heart has a regular rate and rhythm without murmur. Lower extremities: Left hip dressing is normal, no drainage, no bruising noted. No lower extremity edema. Distal pulses are easily palpated. No calf tenderness to palpation. Bilateral ankle dorsiflexion and extension present. Gastrointestinal: The abdomen is soft, nontender and nondistended with active bowel sounds. Psychiatric: Lucid and oriented. Memory intact. Neurologic: No focal deficits. Speech is clear. No facial drooping. Extrem: Other: lef
[2021-06-16 13:01] LABS: NT Pro B Type Natriuretic Pept 25 pg/mL (5-100)
[2021-06-16 13:11] LABS: Magnesium 1.9 mg/dL (1.6-2.3); Phosphorus 2.3 mg/dL (2.5-4.5)
[2021-06-16] MEDS: POTASSIUM/PHOSPHORUS/SODIUM 1.5 GM PACKET 1 PACKET PO (16:25)
[2021-06-16] MEDS: LIDOCAINE 5% PATCH 3 PATCH TRANSDERM (16:25)
[2021-06-16 16:35] VITALS: BP 137/75; PULSE 109; RESP 20; TEMP 36.4; O2SAT 99
[2021-06-16 16:40] LABS: EDCOVIDSCREEN Negative (Negative)
== END 2021-06-16 19:55 | DRG 481 ==
LOC: ANHED 17:57 → ANH3MED 18:40
PROVIDERS: Physician Assistant; Specialist; Admitting Provider Family Medicine; Emergency Provider Emergency Medicine; PCP Family Medicine; Visit Provider Nurse Practitioner
PROC: 0QS734Z Reposition Left Upper Femur with Internal Fixation Device, Percutaneous Approach (ICD-10-PCS; principal; 2021-06-14 09:00)
DX: S72.032A Displaced midcervical fracture of left femur, initial encounter for closed fracture (principal); N39.0 Urinary tract infection, site not specified; Z20.822 Contact with and (suspected) exposure to COVID-19; F41.8 Other specified anxiety disorders; B96.20 Unspecified Escherichia coli [E. coli] as the cause of diseases classified elsewhere; W18.11XA Fall from or off toilet without subsequent striking against object, initial encounter; D64.9 Anemia, unspecified; M19.90 Unspecified osteoarthritis, unspecified site; I10 Essential (primary) hypertension; F32.9 Major depressive disorder, single episode, unspecified; F41.9 Anxiety disorder, unspecified; G71.00 Muscular dystrophy, unspecified; E66.9 Obesity, unspecified; Z68.39 Body mass index [BMI] 39.0-39.9, adult; Z87.891 Personal history of nicotine dependence; Z99.3 Dependence on wheelchair
CPT/HCPCS: 36415; 71045; 73502; 73560; 80048; 80053; 81001; 82550; 83735; 83880; 84100; 84443; 85025; 85027; 85610; 85730; 87077; 87086; 87088; 87186; 87426; 93005; 96374; 96375; 97110; 97162; 97166; 97530; 97535; 99285; A9270; C1713; C1769; C9803; J0690; J0696; J1200; J2250; J2270; J2405; J2704; J3010; J3475; J7030; J7120

== ENCOUNTER 2021-12-01 09:59 | Outpatient (CLI) | payer MEDICARE, MEDICAID, SELFPAY ==
--- NOTE | ~2021-12-01 | XR_ITS ---
XR hip LT 2V w AP pelvis DATE: 12/01/2021 11:08 INDICATION: Left hip pain TECHNIQUE: AP pelvis. AP and lateral views of left hip COMPARISON: 06/14/2021 left hip FINDINGS: There are 3 lag screws through the intertrochanteric area and femoral neck, extending into the femoral head, 1 of the lack screws newly extending through the femoral head into the hip joint sp alyssa since 06/14/2021. There is interval widening of the left hip joint space. There is diffuse osteopenia. The pubic symphysis and sacral iliac joints are intact. IMPRESSION: One of the lag screws extends through the left femoral head into the left hip joint space . Increased left hip joint space Osteopenia Reviewed, dictated and finalized at location A. IMPRESSION: One of the lag screws extends through the left femoral head into th e left hip joint space. Increased left hip joint space Osteopenia
--- NOTE | ~2021-12-01 | XR_ITS ---
XR femur LT min 2V DATE: 12/01/2021 11:08 INDICATION: Left hip pain TECHNIQUE: AP and lateral views of left femur COMPARISON: None FINDINGS: There are 3 lag screws through the intertrochanteric area of the proximal left femur, one o f the screws extending through the femoral head into the left hip joint space. There is widening of t he left hip joint space. There is diffuse osteopenia. No recent fracture or dislocation, periosteal reaction or bone destruction. IMPRESSION: Osteopenia One of the 3 lag screws extend through the femoral head in the left hip joint space, which is widened Reviewed, dictated and finalized at location A. IMPRESSION: Osteopenia One of the 3 lag screws extend through the femoral head in the left hip joint s pace, which is widened
== END 2021-12-01 10:00 | disposition home or self-care (01) ==
PROVIDERS: PCP Family Medicine; Visit Provider Specialist
DX: M25.552 Pain in left hip (principal); Z98.890 Other specified postprocedural states; M85.89 Other specified disorders of bone density and structure, multiple sites
CPT/HCPCS: 73502; 73552

== ENCOUNTER 2022-01-04 10:01 | Outpatient (CLI) | payer MEDICARE, MEDICAID, SELFPAY ==
[2022-01-04 10:44] LABS: Anion Gap 7 mmol/L (8-16); Blood Urea Nitrogen 23 mg/dL (7-17); Calcium 8.9 mg/dL (8.4-10.2); Carbon Dioxide 29 mmol/L (22-30); Chloride 103 mmol/L (98-107); Estimated Glomerular Filt Rate > 60; Glucose 99 mg/dL (65-110); Potassium 4.2 mmol/L (3.4-5.0); Sodium 139 mmol/L (137-145)
== END 2022-01-04 10:02 | disposition home or self-care (01) ==
PROVIDERS: Anesthesiology; PCP Family Medicine; Visit Provider Specialist
DX: E87.6 Hypokalemia (principal)
CPT/HCPCS: 36415; 80048

== ENCOUNTER 2022-01-06 01:44 | Day surgery (SDC) | payer MEDICARE, MEDICAID, SELFPAY ==
--- NOTE | 2021-12-30 14:10 | SUR.PREOP ---
Report to the Outpatient Waiting Room, entrance under the green pavilion located off [facility], at time 1030 on date 01/06/22. OR Time: 1230. - You and your visitor will be asked a series of questions to screen for COVID 19 for your protection. - Only one visitor is allowed at this time. - The patient visitor is requested to leave or wait in car when not with patient. - A mask is required within the hospital. Patients may have clear liquids (water, carbonated beverages, clear teas, apple juice) until 3 hours prior to surgery with a maximum of 20 ounces. - NO CLEAR LIQUIDS AFTER 0930 - No food from midnight until time of surgery - Infants may have breast milk until 4 hours before surgery, infant formula 6 hours prior to surgery. - Children will be allowed to drink immediately following surgery. If applicable, please bring a bottle or sippy cup to assist with drinking. Juice, water, soda, and popsicles are readily available. For infants on formula, please bring formula the day of surgery. Pacifiers are allowed. Take the following medications with a SIP of water the morning of surgery: ACETAMINOPHEN Medications to discontinue per physician INSTRUCTED TO CONSULT DR KNOX IN REGARDS TO CONTINUING NAPROXEN Please no make-up, nail hebrew, hairspray, perfume, deodorant, or body powder the day of surgery. No jewelry (including any body piercings) or valuables the day of surgery, leave them at home. Please take a shower or bath the night before, or the morning of, surgery with an antibacterial soap. Wear comfortable, loose fitting clothing. Children are encouraged to wear pajamas. - Jewelry must be removed prior to entering the operating room. Rings and piercings that are not removed may be cut off. - The hospital will not accept responsibility for valuables. - Please leave all valuables, including medications, at home the day of surgery. If you are going home after surgery, a licensed driver merchandiser must drive you home. - NO public transportation without another adult. - We recommend that an adult stay with you for 24 hours following discharge. - We also recommend that you do not drive, make important decision, drink alcoholic beverages, or take any drugs that were not prescribed by your health care provider for at least 24 hours after your discharge time. For Pediatric surgeries, we recommend two adults accompany the child home (only one inside the building at this time). Follow any additional instructions given to you from your surgeon. If you or anyone in your household have experienced Covid symptoms in the past week, please notify your surgeon or the nurse liaison at the phone number below for possible testing. Telephone instructions given to SHILOH BARBOSA and asked if any additional questions and then verbalized understanding. Patient advised to call surgeon office or pre surgery nurse liaison [phone] if any additional questions.
[2021-12-30 14:22] VITALS: BMI 42.5
--- NOTE | 2022-01-05 13:37 | WPDANESEPPF ---
Anes - Initial Pre Proc Eval Procedure: Operation Date: 01/06/22 12:30 Proposed Procedures p Left Hip Pin Removal - Dinh Vergara MD Date/Time: 01/05/22 13:37 Surgeon: Dinh Vergara MD Pre Op Diagnosis: left hip pain Patient Data Age: 56 Gender: F Height: 1.65 m Weight: 116 kg Allergies Allergy/AdvReac Type Severity Reaction Status Date / Time morphine Allergy Severe Itching Verified 12/30/21 13:55 hydrocodone Allergy Mild itching Verified 12/30/21 13:55 phenylpropanolamine Allergy Mild Unknown Verified 12/30/21 13:55 mesalamine AdvReac Mild muscle Verified 12/30/21 13:55 weakness phenylephrine AdvReac Mild Jittery Verified 12/30/21 13:55 tramadol AdvReac Mild Weakness Verified 12/30/21 13:55 azathioprine AdvReac Unknown Nausea Verified 12/30/21 13:55 codeine [Guaifen-C] AdvReac Unknown jittery Verified 12/30/21 13:55 erythromycin base AdvReac Unknown upset Verified 12/30/21 13:55 stomach pseudoephedrine [Entex T] AdvReac Unknown jittery Verified 12/30/21 13:55 IMMUNOSUPPRESS Allergy Mild Unknown Uncoded 12/30/21 13:55 Home Medications Medication Instructions Recorded Confirmed Type acetaminophen 500 mg capsule 500 mg PO PRN PRN Pain 02/19/21 12/30/21 History bupropion HCl 150 mg 24 hr tablet, 150 mg PO HS 02/19/21 12/30/21 History extended release (Wellbutrin XL) venlafaxine 75 mg capsule,extended 75 mg PO HS 02/19/21 12/30/21 History release 24 hr (Effexor XR) naproxen 500 mg tablet 500 mg PO BID PRN Pain 06/13/21 12/30/21 History baclofen 10 mg tablet 10 mg PO HS 12/30/21 12/30/21 History losartan 100 1 tablet PO HS 12/30/21 12/30/21 History mg-hydrochlorothiazide 12.5 mg tablet Patient hx anesthesia problems: none Family hx anesthesia problems: none Results Review: All pre-operative results and documents have been reviewed as part of the pre-operative evaluation. [facility] Past Medical History Medical History (Updated 06/16/21 @ 20:09 by Reema Marshall NP) Anemia Anxiety Arthritis Constipation Depression Depression with anxiety E-coli UTI Hypertension Lateral epicondylitis Limb-girdle muscular dystrophy Major depressive disorder, single episode, unspecified Muscular dystrophy, unspecified Ulnar neuropathy Surgical History Surgical History History of section History of colonoscopy (03/2021) Performed due to findings of ascending colon stricture on other imaging studies. No stricture was identified however colitis was noted in the ascending colon. Colonoscopy per Dr. Flores. History of open reduction and internal fixation (ORIF) procedure Repair of right humerus fracture. Family History Family History Father Myocardial infarction Hypertension Mother Carcinoma of colon Hypertension Stomach cancer with mets to the throat Sibling Brain tumor Sibling Hypertension Sibling Hypertension Grandparent Breast cancer Paternal grandmother - with mets to the colon Other Congestive heart failure Myocardial infarction Social History Social History (Updated 06/13/21 @ 22:09 by Aspen Garcia PA-C) Social History: Surrogate decision maker: Davonte Mehta, daughter. Code status: Full code. Smoking packs per day: 0.5 Smoking cigarettes per day: 10.0 Years smoked: 37 Smoking pack-years: 18.50 Smoking status: Former smoker Alcohol intake: never Substance use: never Substance use type: does not use Last use: 2014 Living arrangements: with family Additional living arrangements comments: The patient lives with her father and stepmother in [place]. Additional occupation/education comments: Disabled. Spiritual care concerns: No Anes - Eval Final PreProcedure Day of Procedure 01/05/22 13:37 Patient weight: morbidly obese Heart: regular rate and rhythm Lungs: clear to auscultation
[2022-01-06] VITALS (10 sets, daily range): BP systolic 106–144; BP diastolic 48–84; PULSE 74–107; RESP 12–16; TEMP 36–36.6; O2SAT 98–100
--- NOTE | ~2022-01-06 | XR_ITS ---
EXAMINATION: XR surgery orthopedic DATE: 01/06/2022 14:06 INDICATION: Left hip pin removal TECHNIQUE: 2 fluoroscopic images of the tip were obtained during procedure performed by Dr. Vergara. Radi ologist was not present for the imaging or procedure. The amount of fluoroscopy time used during this procedure was 2.2 minutes. COMPARISON: 12/01/2021 FINDINGS: Chronic fracture of the left femoral neck with interval removal of the 3 prior fixing lag screws. It is unclear from the provided images whether the fracture has healed. The 2 washers previously associa jin with the screws remain unchanged alongside the lateral margin of the intratrochanteric femur. The re is persistent prominent widening of the medial aspect of the joint space. IMPRESSION: 1. Fluoroscopy utilized during removal of 3 lag screws from an old transcervical fracture of the prox imal left femur, indeterminate with the provided images whether there has been interval healing of th e fracture. Correlate with procedure note for further detail. Reviewed, dictated and finalized at location A. IMPRESSION: 1. Fluoroscopy utilized during removal of 3 lag screws from an old transcervica l fracture of the proximal left femur, indeterminate with the provided images w hether there has been interval healing of the fracture. Correlate with procedur e note for further detail.
[2022-01-06] MEDS: ACETAMINOPHEN 500 MG TABLET 1000 MG PO (11:00)
[2022-01-06] MEDS: LACTATED RINGERS 1,000 ML 30 ML IV CONT ×2 (11:00→14:18)
--- NOTE | 2022-01-06 11:52 | WPDHPUPDATE1 ---
History and Physical Update Update Date/Time: 01/06/22 11:52 History and Physical has been reviewed, including an updated exam of the patient. There are NO changes in the patient's condition. Risks, benefits, and alternatives have been discussed and questions answered. Patient agrees to proceed with procedure.
[2022-01-06] MEDS: MIDAZOLAM HCL (*CRX) 2 MG/2 ML VIAL IV PUSH (12:00)
[2022-01-06] MEDS: KETOROLAC 15 MG/ML VIAL (*BKC) IV PUSH (12:31)
[2022-01-06] MEDS: ceFAZolin 2 GM/D5W 50 ML 2 GM/50 ML BAG IVPB (12:32)
--- NOTE | 2022-01-06 13:59 | W.PM.PROC2 ---
Procedure Note - Detailed Date of Procedure 01/06/22 Pre-op Diagnosis left hip pain retained and painful Insitu screws from Garden2 femoral neck fx Post-op Diagnosis Same Procedure Performed Removal of 3 retained screws under fluoroscopy control Surgeon Dinh Vergara MD Marketing Rep Danny Anesthesia General Indications The patient is a 56-year-old female who is wheelchair-bound. About 7 months ago she fell out of her wheelchair and sustained a left impacted Garden 2 femoral neck fracture. The fracture collapsed into varus and as it was healing the superior most screw perforated the femoral head. The other 2 screws impacted appropriately and became somewhat more prominent laterally. The patient started to have more pain as this screw started to impinge. I advised her as to the risks and benefits of screw removal and she wished to go forward with this. She understands that I may remove the offending screw were all the screws depending on the intraoperative images. In this case all the screws were removed as the other 2 screws were quite distal and may potentially impinge going forward. The patient understands the risks benefits and alternative treatments. These include but are not limited to infection, inability to remove all of the screws, the likelihood that the washers that were used initially will not be removed, bleeding, and nerve and blood vessel injury. She also understands that her pain may be coming from a delayed union of the femoral neck and removing the screws may not resolve all of her symptoms. The possibility of a total hip arthroplasty or a hemiarthroplasty was discussed with the patient and she understands the rationale for staging such a reconstruction if it becomes necessary and therefore wants to proceed with hardware removal. These among other complications of the proposed procedure were discussed with the patient and she wishes to go forward with surgical intervention. Findings Three screws were removed in total. The washers were encased in soft tissue and a much greater dissection would have been required to remove these. They are in her in her present position and therefore it was decided not to try to remove the remaining 2 washers. Once the screws were removed the hip was rotated and it did seem as if the femoral head and the femoral shaft moved as 1 unit. This was checked in the AP and lateral planes. No differential motion was noted between the femoral neck in the femoral head. Because the patient was done on a fracture table were able to internally and externally rotate the left lower extremity but were unable to flex and extend the hip. Description of Procedure The patient was identified and brought to the operating room and placed in supine position on a fracture table. She was then sterilely prepped and draped in the usual fashion. Fluoroscopy was available throughout the case. The surgical team were pulled prior to initiating the procedure and a surgical time in was performed. We all agreed this was correct patient and the correct side and all the equipment necessary to perform the procedure was available. The screw removal set was available. She had received appropriate IV antibiotics as necessary for the proposed procedure. She was then sterilely prepped and draped in the standard fashion. The previous incision was identified. I opened this incision and then was required to extended about 2-3 more cm so as to dissect down to the heads of the screws in the area of the greater trochanter. The deep fascia was incised sharply then blunt dissection was used to identify the heads of the screws. This was a combination of palpating with my finger and using fluoroscopy to direct the guidewire into each of the screws. The screw that was obviously prominent on the preoperative x-rays was chosen 1st. The guidewire was placed into the cannulated portion of the screw and then using the screwdriver the screw was removed. I then
--- NOTE | 2022-01-06 14:23 | P.PNOP_ITS ---
Subjective Subjective Date/Time Seen: 01/06/22 14:23 Review of Systems Review of Systems: Post op I called the pts father Boston Mehta and informed him she was out of surgery and doing well. I answered all his questions and gave him my phone number for later. He understand to call me anytime with questions. She already has pain medicines for post-op and a follow appt in my clinic. Objective Data Vital Signs Vital Signs: Vital Signs - 24 hr 01/06/22 11:00 Temperature 36.6 C Pulse Rate 107 H Respiratory Rate 16 Blood Pressure 121/76 Pulse Oximetry 100 Oxygen Delivery Room Air Meds/Results Medications: Active Medications Generic Name Dose Route Start Last Admin Trade Name Freq PRN Reason Stop Dose Admin Hydrocodone Bitart/Acetaminophen 1 tab 01/06/22 11:56 Hydrocodone/Acetaminophen (*Crx) 5-325 Mg Tablet PO Q3H PRN Pain Rated 4-6 Aspirin 325 mg 01/07/22 09:00 Aspirin 325 Mg Enteric Tablet PO QAM BENT[place] Fentanyl Citrate 25 mcg 01/05/22 13:25 Fentanyl Citrate Inj (*Crx) 100 Mcg/2 Ml Vial IV PUSH Q2M PRN Pain Lactated Ringer's 1,000 mls @ 30 mls/hr 01/05/22 13:25 01/06/22 11:00 Lr - Lactated Ringers Iv IV CONT 30 mls/hr .Q24H BENTLEY Administration Lactated Ringer's 1,000 mls @ 30 mls/hr 01/05/22 13:25 Lr - Lactated Ringers Iv IV CONT .Q24H [place] Morphine Sulfate 2 mg 01/06/22 11:56 Morphine Sulfate (*Crx) 2 Mg/Ml Inj IV PUSH Q3H PRN Pain Rated 7-10 Ondansetron HCl 4 mg 01/05/22 13:25 Ondansetron Inj 4 Mg/2 Ml Vial IV PUSH ONCE PRN Nausea Ondansetron HCl 4 mg 01/06/22 11:56 Ondansetron Inj 4 Mg/2 Ml Vial IV PUSH Q4H PRN Nausea And Vomiting Oxycodone HCl 5 mg 01/05/22 13:25 Oxycodone Hcl (*Crx) 5 Mg Tab Ir PO ONCE PRN Pain Polyethylene Glycol 17 gm 01/07/22 09:00 Polyethylene Glycol 3350 17 Gm Powd.Pack PO QAM B[place] Senna/Docusate Sodium 2 tab 01/06/22 17:00 Senna/Docusate Sodium Tablet PO BID [facility] Radiology Results: ITS Impressions Intraoperative X-Ray 01/06/22 14:14 IMPRESSION: 1. Fluoroscopy utilized during removal of 3 lag screws from an old transcervical fracture of the proximal left femur, indeterminate with the provided images whether there has been interval healing of the fracture. Correlate with procedure note for further detail.
--- NOTE | 2022-01-06 16:51 | SUR.PHASEII ---
1651- Patient getting dressed and waiting for ride (public transportation). Daughter present at bedside and will ride bus with patient. Vital signs stable.
== END 2022-01-06 17:28 | disposition home or self-care (01) ==
PROVIDERS: PCP Family Medicine; Visit Provider Specialist
PROC: (CPT 20680; principal; 2022-01-06 12:30)
DX: T84.84XA Pain due to internal orthopedic prosthetic devices, implants and grafts, initial encounter (principal); M25.552 Pain in left hip; Y83.8 Other surgical procedures as the cause of abnormal reaction of the patient, or of later complication, without mention of misadventure at the time of the procedure; I10 Essential (primary) hypertension; G71.00 Muscular dystrophy, unspecified; F41.8 Other specified anxiety disorders; Z87.891 Personal history of nicotine dependence; E66.01 Morbid (severe) obesity due to excess calories; Z68.37 Body mass index [BMI] 37.0-37.9, adult
CPT/HCPCS: 20680; 99199; A9270; J0690; J1885; J2250; J2270; J2370; J2405; J2704; J7120

== ENCOUNTER 2022-02-01 11:34 | Outpatient (CLI) | payer MEDICARE, MEDICAID, SELFPAY ==
--- NOTE | ~2022-02-01 | XR_ITS ---
EXAMINATION: XR hip LT 2V w AP pelvis INDICATION: Left hip pain TECHNIQUE: AP view of the pelvis and two views of the left hip are obtained. COMPARISON: 12/01/2021 FINDINGS: There has been interval removal of the previously described percutaneous pins of the left f emoral neck. Lucencies are present at the sites of the prior pins. There is sclerosis in the subcapit al neck of the left femur at the site of prior fracture. No definite acute fracture is identified. Th ere is mild osteoarthritis of the hips. IMPRESSION: 1. Interval removal of the previously identified percutaneous pins of the left femoral neck without a cute osseous abnormality identified. Reviewed, dictated and finalized at location A. IMPRESSION: 1. Interval removal of the previously identified percutaneous pins of the left femoral neck without acute osseous abnormality identified.
--- NOTE | ~2022-02-01 | XR_ITS ---
EXAMINATION: XR femur LT min 2V INDICATION: Left femur pain TECHNIQUE: Two views of the left femur are obtained on four radiographs. COMPARISON: 12/01/2021 FINDINGS: There has been interval removal of the previously described percutaneous pins of the left f emoral neck. Lucencies are present at the sites of the prior pins. No definite acute fracture is iden tified. There is moderate osteoarthritis at the knee. IMPRESSION: 1. Interval removal of the previously described percutaneous pins of the left femoral neck without ac [place] osseous abnormality identified. Reviewed, dictated and finalized at location A. IMPRESSION: 1. Interval removal of the previously described percutaneous pins of the left f emoral neck without acute osseous abnormality identified.
== END 2022-02-01 11:35 | disposition home or self-care (01) ==
PROVIDERS: PCP Physician Assistant; Visit Provider Specialist
DX: M25.552 Pain in left hip (principal)
CPT/HCPCS: 73502; 73552

== ENCOUNTER 2022-02-28 07:37 | Inpatient (IN) | payer MEDICARE, MEDICAID, SELFPAY ==
[2022-02-28] VITALS (58 sets, daily range): BP systolic 74–181; BP diastolic 48–112; PULSE 68–116; RESP 11–28; TEMP 32.2–36.3; O2SAT 95–100; BMI 42.0
--- NOTE | ~2022-02-28 | XR_ITS ---
XR chest 1V DATE: 02/28/2022 09:10 INDICATION: Anxiety attack. Unresponsive. TECHNIQUE: AP chest COMPARISON: 06/13/2021 portable AP chest 07/24/2019 AP and lateral chest FINDINGS: Heart size appears within normal range. Aortic arch calcification. Minimal atelectasis is suggested at the lung bases. The lungs otherwise appear clear. No pleural effu karen or pulmonary vascular congestion or pneumothorax. Included skeletal structures are unremarkable. IMPRESSION: Minimal atelectasis at the lung bases Reviewed, dictated and finalized at location A.
--- NOTE | ~2022-02-28 | CT_ITS ---
EXAMINATION: CT abdomen pelvis w con DATE: 02/28/2022 10:22 INDICATION: Hypothermia. Diarrhea. TECHNIQUE: Computed tomography (CT) of the abdomen and pelvis was performed with 100 CC Omnipaque 350 intravenous contrast. Automated exposure control and iterative reconstruction technique were employe d. Exam dose: 1677.92 mGy-cm total exam DLP. COMPARISON: 02/06/2021 CT abdomen pelvis FINDINGS: Mild bilateral dependent lower lobe atelectasis. Normal heart size. No pericardial or pleural effusion. Hepatic steatosis. No hepatic space-occupying mass lesion. The gallbladder is distended. No gallbladd er wall thickening or pericholecystic fluid or fat stranding is noted. Splenic size is within normal limits. No pancreatic mass lesion, calcification or ductal dilatation. No bile duct dilatation. Normal morphology of the adrenal glands. 5.7 mm hypoattenuating lesion of the posterior mid right kidney, too small to definitively characteri ze, likely a cyst. The kidneys are otherwise unremarkable. No urinary tract calculus or hydroureteron ephrosis. As a [place] catheter within the evacuated urinary bladder. Diffuse bladder wall thickening. There is atherosclerotic calcification but normal caliber of the abdominal aorta. No intraperitoneal or retroperitoneal or pelvic mass lesion or adenopathy or ascites. The appendix is unremarkable. Shotty right lower quadrant lymph nodes. There is loss of haustration of the colon, mild colon wall thickening as well as fluid levels of the colon. Infectious or inflammatory colitis are suggested. Ulcerative colitis in particular is not excl uded. No bowel obstruction or intraperitoneal free air. Small fat-containing umbilical hernia. There is severe atrophy and fatty replacement of all included abdominal wall, back, iliopsoas, glutea l and thigh musculature. Bilateral hip joint effusions. Left femoral neck fracture. IMPRESSION: Volvulus of the colon consistent with history of diarrhea. Loss of colonic demonstration of mild wall thickening. Consider infectious or inflammatory colitis including possible ulcerative No bowel obstruction or free air Unremarkable appendix small probable right renal cyst Hepatic steatosis Diffuse severe muscular atrophy, fatty replacement Bilateral hip joint effusions Reviewed, dictated and finalized at [facility]. Reviewed, dictated and finalized at [facility]. IMPRESSION: Volvulus of the colon consistent with history of diarrhea. Loss of colonic demonstration of mild wall thickening. Consider infectious or inflamma tory colitis including possible ulcerative No bowel obstruction or free air Unremarkable appendix small probable right renal cyst Hepatic steatosis Diffuse severe muscular atrophy, fatty replacement Bilateral hip joint effusions
--- NOTE | ~2022-02-28 | CT_ITS ---
EXAMINATION: CT brain wo con DATE: 02/28/2022 09:08 INDICATION: Unresponsive TECHNIQUE: Computed tomography (CT) of the head was performed without intravenous contrast. The mA wa s adjusted according to patient size. Iterative reconstruction technique was employed. Exam dose: 60 5.33 mGy-cm total exam DLP. COMPARISON: 06/18/2015 MRI brain/brainstem 08/28/2016 CT brain FINDINGS: No intracranial mass lesion or hemorrhage or cerebrovascular accident, midline shift or mas s effect. No subdural or epidural hematoma. Normal ventricular size. No orbital mass lesion. Normal development and aeration of the paranasal sinuses and mastoid air cells. No skull fracture or bone destruction. IMPRESSION: No significant abnormality Reviewed, dictated and finalized at [facility] Reviewed, dictated and finalized at [facility]. IMPRESSION: No significant abnormality
--- NOTE | 2022-02-28 07:41 | ED.ANXIETY ---
HPI - Anxiety General Chief Complaint: Unspecified Stated Complaint: anxiety Time Seen by Provider: 02/28/22 07:41 Source: family, EMS and RN notes reviewed Mode of arrival: EMS Limitations: clinical condition History of Present Illness HPI narrative: 56 years old white female brought to the emergency room by ambulance from home because of shortness of breath. History of MS lives with her parents at the basement, this morning called her dad and told him I could not breathe, called 911, he does not know anything about the patient, patient is morning, responding to verbal commands but does not respond to questions. Later patient's daughter arrived and told me that patient been having diarrhea for the last 5 days at least 4 times a day with nausea and dry heaves. Related Data Home Medications Medication Instructions Recorded Confirmed acetaminophen 500 mg capsule 500 mg PO PRN PRN Pain 02/19/21 01/11/22 losartan 100 1 tablet PO HS 12/30/21 01/11/22 mg-hydrochlorothiazide 12.5 mg tablet Allergies Allergy/AdvReac Type Severity Reaction Status Date / Time morphine Allergy Severe Itching Verified 01/08/22 11:10 hydrocodone Allergy Mild itching Verified 01/08/22 11:10 phenylpropanolamine Allergy Mild Unknown Verified 01/08/22 11:10 mesalamine AdvReac Mild muscle Verified 01/08/22 11:10 weakness phenylephrine AdvReac Mild Jittery Verified 01/08/22 11:10 tramadol AdvReac Mild Weakness Verified 01/08/22 11:10 azathioprine AdvReac Unknown Nausea Verified 01/08/22 11:10 codeine [Guaifen-C] AdvReac Unknown jittery Verified 01/08/22 11:10 erythromycin base AdvReac Unknown upset Verified 01/08/22 11:10 stomach pseudoephedrine [Entex T] AdvReac Unknown jittery Verified 01/08/22 11:10 IMMUNOSUPPRESS Allergy Mild Unknown Uncoded 01/08/22 11:10 Review of Systems Review of Systems: ROS unobtainable: Yes unobtainable due to medical condition PMFSH Past Medical History Medical History Anemia Anxiety Arthritis Constipation Depression Depression with anxiety E-coli UTI Hypertension Lateral epicondylitis Limb-girdle muscular dystrophy Major depressive disorder, single episode, unspecified Muscular dystrophy, unspecified Ulnar neuropathy Surgical History Surgical History History of section History of colonoscopy (03/2021) Performed due to findings of ascending colon stricture on other imaging studies. No stricture was identified however colitis was noted in the ascending colon. Colonoscopy per Dr. Flores. History of open reduction and internal fixation (ORIF) procedure Repair of right humerus fracture. Family History Family History Father Myocardial infarction Hypertension Mother Carcinoma of colon Hypertension Stomach cancer with mets to the throat Sibling Brain tumor Sibling Hypertension Sibling Hypertension Grandparent Breast cancer Paternal grandmother - with mets to the colon Other Congestive heart failure Myocardial infarction Social History Social History Social History: Surrogate decision maker: Davonte Mehta, daughter. Code status: Full code. Smoking packs per day: 0.5 Smoking cigarettes per day: 10.0 Years smoked: 37 Smoking pack-years: 18.50 Smoking status: Former smoker Alcohol intake: never Substance use: never Substance use type: does not use Last use: 2014 Additional living arrangements comments: The patient lives with her father and stepmother in [place]. Additional occupation/education comments: Disabled. Spiritual care concerns: No Exam Narrative: General appearance: Well-developed, well-nourished, morbidly obese, laying flat in bed, moaning, saying her name but not responding to questions Skin: Normal color Head
--- NOTE | 2022-02-28 08:11 | ECG_ITS ---
Measurements Intervals [place] Rate: 93 P: 64 MI: 148 QRS: 4 QRSD: 109 T: 63 QT: 400 QTc: 500 Interpretive Statements SINUS RHYTHM INCOMPLETE RIGHT BUNDLE BRANCH BLOCK BORDERLINE ST-T WAVE ABNORMALITY- LAT/HIGH LAT LEADS BASELINE ARTIFACT- I, II, III, AVR, AVL, AVF BORDERLINE ECG COMPARED TO ECG 06/13/2021 17:25:35 HR HAS DECREASED Electronically Signed On 02-28-2022 8:36:43 CDT by West Reyes D.O.
[2022-02-28 08:43] LABS: Hematocrit 36.6 % (37.0-47.0); Hemoglobin 12.1 g/dL (12.0-15.0); Mean Corpuscular HGB Conc 33.1 g/dl (32-36); Mean Corpuscular Hemoglobin 29.6 pg (26-34); Mean Corpuscular Volume 89.5 fl (80-100); Mean Platelet Volume 9.7 fl (7.4-10.4); Platelet Count Result 278 k/mm3 (150-375); Red Blood Count 4.09 M/mm3 (4.2-5.4); Red Cell Distribution Width 13.3 % (11.5-14.5); White Blood Count 9.3 K/mm3 (4.5-10.0)
[2022-02-28 08:48] LABS: Appearance Urine Cloudy (Clear); Bilirubin Urine 2+ (Negative); Color Urine Yellow (Yellow); Glucose Urine UA Negative (Negative); Ketones Urine Trace mg/dL (Negative); Leukocyte Esterase Ur Trace LEU/UL (Negative); Nitrate Urine Negative (Negative); Protein Urine 1+ mg/dL (Negative); Specific Grav Ur 1.025 (1.001-1.035); Urobilinogen Urine 0.2 mg/dL (<2.0)
[2022-02-28 08:53] LABS: Alveolar/Arterial O2 Gradient 8.1 mmHg; Base Excess ABG -4.8 mEq/l (+/-2.0); Device ROOM AIR; Fractional Inspired Oxygen 21 %; HCO3 ABG 20.8 mEq/l (22.0-26.0); Oxygen Content ABG 14.3 %vol (16.0-22.0); Oxygen Saturation ABG 96.7 % (95.0-100.0); Oxyhemoglobin 94.8 % THb (90.0-100.0); PCO2 ABG 40.2 mmHg (35.0-45.0); PO2 ABG 93.5 mmHg (80.0-100.0); PO2 FiO2 Ratio Arterial Blood 4.45 %; Site Drawn LEFT BRACHIAL; Total Hemoglobin 10.6 g/dL (12.0-18.0); pH ABG 7.331 (7.350-7.450)
[2022-02-28 09:01] LABS: Alanine Aminotransferase 15 U/L (6-35); Albumin Level 3.3 g/dL (3.5-5.1); Alkaline Phosphatase 102 U/L (38-126); Anion Gap 19 mmol/L (8-16); Aspartate Amino Transferase 13 U/L (14-36); Bilirubin,Total 0.9 mg/dL (0.2-1.3); Blood Urea Nitrogen 38 mg/dL (7-17); CRP > 9.0 mg/dL (<1.0); Calcium 8.3 mg/dL (8.4-10.2); Carbon Dioxide 21 mmol/L (22-30); Chloride 98 mmol/L (98-107); Estimated Glomerular Filt Rate 42; Glucose 95 mg/dL (65-110); Potassium < 2.0 mmol/L (3.4-5.0); Sodium 138 mmol/L (137-145)
[2022-02-28 09:01] LABS: INR 1.3; Prothrombin Time 15.6 Seconds (11.1-14.7)
[2022-02-28 09:02] LABS: Partial Thromboplastin Time 38.9 SECONDS (22.3-36.8)
[2022-02-28 09:05] LABS: Bacteria Urine Trace /hpf; Hyaline Casts Urine 30-49 /lpf; Mucus Urine Few /lpf; Squamous Epithelial Cell Urine Many /hpf (Few); WBC Urine 16-20 /hpf
[2022-02-28 09:06] LABS: Troponin I < 0.012 ng/mL (0.000-0.034)
[2022-02-28 09:15] LABS: Add Urine Microscopic? YES; Blood Urine Trace-Intact (Negative)
[2022-02-28 09:24] LABS: Band Neutrophils Percent 14 % (0-6); Lymphocytes Absolute Manual 1.58 K/mm3 (1.1-4.5); Monocytes Absolute Manual 0.46 K/mm3 (0.1-0.90); Monocytes Percent Manual 5 % (3-9); Neutrophils Absolute Manual 6.88 K/mm3 (1.7-7.2); Neutrophils Percent Manual 60 % (46-73); Total Cells Counted 100
[2022-02-28 09:27] LABS: Eosinophils Absolute Manual 0.37 K/mm3 (0.02-0.5); Eosinophils Percent Manual 4 % (0-4)
[2022-02-28 09:28] LABS: Platelet Estimate Adequate (Adequate)
[2022-02-28 09:36] LABS: D Dimer 3.29 ug/mL (<0.48)
[2022-02-28 10:02] LABS: Potassium 2.2 mmol/L (3.4-5.0)
[2022-02-28 10:26] LABS: SARS-CoV-2 RNA PCR Negative
[2022-02-28] MEDS: POTASSIUM CHLORIDE INJ 40 MEQ in SODIUM CHLORIDE 0.9% IV 500 ML 130 MEQ IVPB (10:51)
[2022-02-28] MEDS: NOREPINEPHRINE 8 MG/D5W 250 ML 8 MG/250 ML BAG 9.38 MG IV CONT (11:34)
[2022-02-28] MEDS: SODIUM CHLORIDE 0.9% IV 3,200 ML/1,000 ML BAG 999 ML IV CONT ×4 (11:39→11:41)
--- NOTE | 2022-02-28 11:45 | ECG_ITS ---
Rate ID QRSd QT QTc P QRS T 96 143 100 270 342 52 13 52 SINUS RHYTHM WITH SINUS ARRHYTHMIA NONSPECIFIC ST & T-WAVE ABNORMALITY- DIFFUSE LEADS BASELINE ARTIFACT- I, II, III, AVR, AVL, AVF, V1-V6 BORDERLINE ECG COMPARED TO ECG 02/28/2022 07:45:14 SINUS ARRHYTHMIA NOW PRESENT Electronically Signed On 03-03-2022 8:18:28 CDT by West JAMES
[2022-02-28 11:48] LABS: Creatine Kinase 45 U/L (30-135)
--- NOTE | 2022-02-28 11:48 | WPDCNINT ---
Assessment and Plan Assessment and plan (1) Sepsis: Code(s): A41.9 - Sepsis, unspecified organism Status: Acute Assessment and Plan: patient presented with sepsis is likely secondary to colitis and UTI blood cultures, urine cultures and stool C diff ordered history of E coli UTI that was sensitive to cefepime in the past. Will start empiric cefepime and Flagyl check procalcitonin level (2) Colitis: Code(s): K52.9 - Noninfective gastroenteritis and colitis, unspecified Status: Acute Assessment and Plan: most likely infectious but could be non infectious stool C diff ordered check stool for WBC GI consulted (3) UTI (urinary tract infection): Code(s): N39.0 - Urinary tract infection, site not specified Status: Acute Assessment and Plan: see above (4) Shock: Code(s): R57.9 - Shock, unspecified Status: Acute Assessment and Plan: likely secondary to shock sepsis and dehydration patient has received 3 L of saline bolus and is now on maintenance IV fluids Levophed to maintain map lactic acid level is normal (5) Dehydration: Code(s): E86.0 - Dehydration Status: Acute Assessment and Plan: secondary to diarrhea she received 3 L of IV fluid bolus in the ED and will be receiving IV fluids (6) WEI (acute kidney injury): Code(s): N17.9 - Acute kidney failure, unspecified Status: Acute Assessment and Plan: most likely secondary to dehydration and sepsis CT scan did not show any hydronephrosis check CK level continue IV fluid monitor urine output electrolytes and creatinine (7) Hypokalemia: Code(s): E87.6 - Hypokalemia Status: Acute Assessment and Plan: replacement has been ordered will order IV fluids with potassium repeat BMP after initial set of replacement completed for further orders (8) Volvulus: Code(s): K56.2 - Volvulus Status: Acute Assessment and Plan: CT scan reviewed general surgery and GI has been consulted (9) Hypothermia: Code(s): T68.XXXA - Hypothermia, initial encounter Status: Acute Assessment and Plan: likely secondary to sepsis. continue warming blanket. check TSH Plan DVT prophylaxis - Lovenox Nutrition - NPO at this time Code Status - Full Code Family including patient's father and patient's daughter updated at bedside Total Critical Care Time - 40 minutes Due to a high probability of clinically significant, life threatening deterioration, the patient required my highest level of preparedness to intervene emergently and I personally spent this critical care time directly and personally managing the patient. This critical care time included obtaining a history; examining the patient; pulse oximetry; ordering and review of studies; arranging urgent treatment with development of a management plan; evaluation of patient's response to treatment; frequent reassessment; and discussions with other providers. It was exclusive of separately billable procedures and treating other patients and teaching time. Please see Assessment and Plan section and the rest of the note for further information on patient assessment and treatment Receiver Setter Consult Note Consult date: 02/28/22 Reason for consult: hypotension HPI: Marcia Mehta is a 56 year old female with past medical history of muscular dystrophy of unknown nature which was diagnosed when she was 25 years old, essentially bed-bound at home, anemia, Anxiety, Depression with anxiety, E-coli UTI and hypertension was brought to hospital for SOB. Her daughter reported she has been having diarrhea for 5 days. patient herself is drowsy and a poor historian and most of the history was obtained from patient's father and daughter who were at bedside. Daughter told me that patient has been having diarrhea for last 4-5 days with loose bowel movements 4 to 5 times a
--- NOTE | 2022-02-28 12:45 | ADMGEN ---
This patient, Marcia Mehta, was admitted to Intensive Care Unit-1. Patient/family oriented to hospital policies and general routines including ID bracelet, bed and alarms, visiting hours, pain management, procedures, bathroom and other care routines, personal items, smoking policy, room service/diet, and visiting hours. Information on how to activate the Rapid Response Team has been discussed. Patient/Family are encouraged to report perceived risks to care and to ask questions if they do not understand what they are told or what they should do.
--- NOTE | 2022-02-28 12:59 | PM.EVENT ---
Event Note Event Note Event Note: On arrival to ICU patient is awake and shouting, I am having a heart attack . she will not provide any further details. When asked her where was a pain she said her 'heart is hurting'. She would not answer any other question to provide any meaningful information. EKG done and reviewed and does not show any ST elevation. I will check troponin.
[2022-02-28] MEDS: fentaNYL CITRATE INJ (*CRX) 100 MCG/2 ML VIAL 25 MCG IV PUSH (13:18)
[2022-02-28 13:28] LABS: Lipase < 10 U/L (23-300); Magnesium 1.2 mg/dL (1.6-2.3); Phosphorus 2.7 mg/dL (2.5-4.5)
[2022-02-28] MEDS: metroNIDAZOLE 500 MG/ISO 100ML 500 MG/100 ML BAG 100 MG IVPB ×3 (13:38→23:56)
[2022-02-28 13:40] LABS: Troponin I < 0.012 ng/mL (0.000-0.034)
[2022-02-28] MEDS: MAGNESIUM SULFATE 3GM/D5W100ML 3 GM/100 ML BAG IVPB (14:32)
[2022-02-28 14:46] LABS: Estimated CRCL calculation 62 ml/min; Estimated Glomerular Filt Rate 51
--- NOTE | 2022-02-28 15:00 | PM.IMHP ---
H&P: HPI History of Present Illness Date/Time: 02/28/22 15:00 Chief Complaint: Shortness of breath. Narrative: This is a 56-year-old female with muscular dystrophy, hypertension, anemia, depression, and anxiety who presented to the emergency department via EMS from home for evaluation of shortness of breath. She is not a great historian at this time due to her acute illness and as such some of the following is obtained via a review of her electronic medical records as well as discussions with family members. She has had diarrhea for the last 5 days, 4 to 5 times per day however it is not necessarily unusual for her to get diarrhea and she has a history of colitis. she has been complaining of some mild, cramping abdominal pain and her appetite has been poor with nausea. She has also been running a low-grade fever. This morning she called out for her family members with complaints of significant shortness of breath and they thought she was probably having a panic attack. On arrival to the ED however she was found to be hypotensive and hypothermic. workup today was significant for an acute kidney injury, hypokalemia, elevated lactic acid level, CRP greater than 9, normal white blood cell count with bandemia, and a CT of the abdomen/pelvis showed evidence of colitis. She was aggressively hydrated and has been started on norepinephrine to maintain her blood pressures. She has also been started on broad-spectrum antibiotics to cover for colitis and possible urinary tract infection. At the time my evaluation she is feeling a bit better and nurse at bedside reports that she is much more awake than she was earlier. She is now alert and oriented x4. Aside from being tired she has no specific complaints. She specifically denies chest pain and shortness of breath at this time. She is not having any abdominal discomfort. She does not believe she has had any blood or mucus in the stool. Review of Systems Review of Systems: Twelve systems were reviewed and are negative except for as per HPI. [facility] Past Medical History Medical History (Updated 03/01/22 @ 08:34 by Patrick Packer MD) Anxiety Arthritis Depression with anxiety E-coli UTI Hypertension Limb-girdle muscular dystrophy Major depressive disorder, single episode, unspecified Muscular dystrophy, unspecified Surgical History Surgical History (Updated 02/28/22 @ 14:06 by Aspen Garcia PA-C) History of section History of colonoscopy (03/2021) Performed due to findings of ascending colon stricture on other imaging studies. No stricture was identified however colitis was noted in the ascending colon. Previous colon biopsies demonstrated active cryptitis with mucosal erosion and cryptitis. History of open reduction and internal fixation (ORIF) procedure Repair of right humerus fracture. Pinning of left femoral neck fracture with subsequent hardware removal. Family History Family History Father Myocardial infarction Hypertension Mother Carcinoma of colon Hypertension Stomach cancer with mets to the throat Sibling Brain tumor Sibling Hypertension Sibling Hypertension Grandparent Breast cancer Paternal grandmother - with mets to the colon Other Congestive heart failure Myocardial infarction Social History Social History Social History: Surrogate decision maker: Davonte Mehta, daughter. Code status: Full code. Smoking packs per day: 0.5 Smoking cigarettes per day: 10.0 Years smoked: 37 Smoking pack-years: 18.50 Smoking status: Former smoker Alcohol intake: never Substance use: never Substance use type: does not use Last use: 2014 Additional living arrangements comments: The patient lives with her father and stepmother in [place]. Additional occupation/education comments: Disabled. Spiritual care concerns
[2022-02-28] MEDS: KCL 40 MEQ/WATER 100 ML 100 ML 25 ML IVPB ×2 (15:34→22:06)
[2022-02-28] MEDS: KCL 20 MEQ/0.45% NS 1,000 ML 125 ML IV CONT (20:46)
[2022-02-28 21:11] LABS: Troponin I < 0.012 ng/mL (0.000-0.034)
[2022-02-28 21:11] LABS: Anion Gap 13 mmol/L (8-16); Blood Urea Nitrogen 38 mg/dL (7-17); Calcium 7.8 mg/dL (8.4-10.2); Carbon Dioxide 17 mmol/L (22-30); Chloride 108 mmol/L (98-107); Estimated CRCL calculation 68 ml/min; Estimated Glomerular Filt Rate 57; Glucose 103 mg/dL (65-110); Potassium 3.1 mmol/L (3.4-5.0); Sodium 138 mmol/L (137-145)
--- NOTE | 2022-02-28 21:22 | PC.NURSE ---
Recent potassium called to Dr. Morocho. Replace with 40meq IV x1 now.
[2022-03-01] VITALS (29 sets, daily range): BP systolic 80–147; BP diastolic 45–95; PULSE 73–113; RESP 10–24; TEMP 36.1–36.5; O2SAT 97–100
[2022-03-01] MEDS: fentaNYL CITRATE INJ (*CRX) 100 MCG/2 ML VIAL 25 MCG IV PUSH (03:50)
[2022-03-01 04:02] LABS: Hemoglobin 11.4 g/dL (12.0-15.0); Mean Corpuscular HGB Conc 33.5 g/dl (32-36); Mean Corpuscular Hemoglobin 29.8 pg (26-34); Mean Corpuscular Volume 88.8 fl (80-100); Platelet Count Result 311 k/mm3 (150-375); Red Blood Count 3.83 M/mm3 (4.2-5.4); Red Cell Distribution Width 13.8 % (11.5-14.5)
[2022-03-01 04:13] LABS: Alanine Aminotransferase 15 U/L (6-35); Albumin Level 2.6 g/dL (3.5-5.1); Alkaline Phosphatase 102 U/L (38-126); Anion Gap 12 mmol/L (8-16); Aspartate Amino Transferase 14 U/L (14-36); Bilirubin,Total 0.5 mg/dL (0.2-1.3); Blood Urea Nitrogen 36 mg/dL (7-17); Calcium 7.9 mg/dL (8.4-10.2); Carbon Dioxide 15 mmol/L (22-30); Chloride 110 mmol/L (98-107); Estimated CRCL calculation 68 ml/min; Estimated Glomerular Filt Rate 57; Glucose 103 mg/dL (65-110); Magnesium 2.2 mg/dL (1.6-2.3); Phosphorus 3.2 mg/dL (2.5-4.5); Potassium 3.9 mmol/L (3.4-5.0); Sodium 137 mmol/L (137-145)
[2022-03-01 04:23] LABS: Troponin I < 0.012 ng/mL (0.000-0.034)
[2022-03-01 04:31] LABS: Band Neutrophils Percent 50 % (0-6); Metamyelocytes Percent 2 %; Monocytes Absolute Manual 0.45 K/mm3 (0.1-0.90); Monocytes Percent Manual 3 % (3-9); Neutrophils Absolute Manual 11.85 K/mm3 (1.7-7.2); Neutrophils Percent Manual 29 % (46-73); Platelet Clumps Present; Platelet Estimate Adequate (Adequate); Poikilocytosis 1+ (NORMAL); Total Cells Counted 100
[2022-03-01 04:32] LABS: Crenated RBC 1+ (NORMAL)
[2022-03-01] MEDS: metroNIDAZOLE 500 MG/ISO 100ML 500 MG/100 ML BAG 100 MG IVPB ×2 (05:04→23:31)
[2022-03-01] MEDS: KCL 20 MEQ/0.45% NS 1,000 ML 125 ML IV CONT (05:05)
[2022-03-01] MEDS: ENOXAPARIN 40 MG/0.4 ML SYRINGE SUB-Q (08:00)
--- NOTE | 2022-03-01 08:26 | WPDINTPN ---
Progress Note: A&P Assessment and Plan (1) Sepsis: Code(s): A41.9 - Sepsis, unspecified organism Status: Acute Assessment and Plan: patient presented with sepsis is likely secondary to colitis and UTI blood cultures, urine cultures and stool C diff ordered but patient has not had any bowel movement since arriving to ICU she does have history of E coli UTI that was sensitive to cefepime in the past. continue empiric cefepime and Flagyl check procalcitonin level (2) Colitis: Code(s): K52.9 - Noninfective gastroenteritis and colitis, unspecified Status: Acute Assessment and Plan: her colitis is most likely infectious but could be non infectious stool C diff ordered but patient has not had any diarrhea since arrival to ICU check stool for WBC GI consulted and consultation pending (3) UTI (urinary tract infection): Code(s): N39.0 - Urinary tract infection, site not specified Status: Acute Assessment and Plan: see above (4) Shock: Code(s): R57.9 - Shock, unspecified Status: Acute Assessment and Plan: likely secondary to shock sepsis and dehydration patient has received good amount of IV fluids. I will decrease the rate at this time add 25% albumin as her albumin level is very low patient is third-spacing continue Levophed to maintain map lactic acid level is normal check cortisol and TSH (5) Dehydration: Code(s): E86.0 - Dehydration Status: Acute Assessment and Plan: secondary to diarrhea improved with fluid resuscitation (6) WEI (acute kidney injury): Code(s): N17.9 - Acute kidney failure, unspecified Status: Acute Assessment and Plan: most likely secondary to dehydration and sepsis CT scan did not show any hydronephrosis check CK level normal IV fluid creatinine has improved and came down in normal range with IV fluids monitor urine output electrolytes and creatinine (7) Hypokalemia: Code(s): E87.6 - Hypokalemia Status: Acute Assessment and Plan: improved with replacement continue with decrease rate of IV fluids with potassium (8) Volvulus: Code(s): K56.2 - Volvulus Status: Acute Assessment and Plan: initial report of CT scan suggested Volvulus. But we review by Radiology states that it was just a fluid collection (9) Hypothermia: Code(s): T68.XXXA - Hypothermia, initial encounter Status: Acute Assessment and Plan: likely secondary to sepsis and patient also has muscle dystrophy which has been replaced by obesity and fat continue warming blanket as needed check TSH (10) Chest pain: Code(s): R07.9 - Chest pain, unspecified Status: Acute Assessment and Plan: no specific details provided with patient regarding chest pain EKG reviewed troponin x3 negative lipase normal start Protonix for possible GERD or dyspepsia Plan DVT prophylaxis - Lovenox Nutrition - consult speech for swallow evaluation Code Status - Full Code Total Critical Care Time - 30 minutes Due to a high probability of clinically significant, life threatening deterioration, the patient required my highest level of preparedness to intervene emergently and I personally spent this critical care time directly and personally managing the patient. This critical care time included obtaining a history; examining the patient; pulse oximetry; ordering and review of studies; arranging urgent treatment with development of a management plan; evaluation of patient's response to treatment; frequent reassessment; and discussions with other providers. It was exclusive of separately billable procedures and treating other patients and teaching time. Please see Assessment and Plan section and the rest of the note for further information on patient assessment and treatment Subjective Date/time seen: 03/01/22 08:26 Lorin
--- NOTE | 2022-03-01 08:49 | PCSTNOTE ---
The Bedside Swallow Evaluation was not able to be completed yet today on 03/01/22 due to not following directions or well able to safely participate]. Will plan to evaluate when nursing indicates patient is ready and safe.
[2022-03-01] MEDS: PANTOPRAZOLE SODIUM IV 40 MG VIAL IV PUSH (09:02)
[2022-03-01] MEDS: NOREPINEPHRINE 8 MG/D5W 250 ML 8 MG/250 ML BAG 11.25 MG IV CONT (10:12)
[2022-03-01 10:32] LABS: Procalcitonin 2.5 ng/mL
[2022-03-01] MEDS: metroNIDAZOLE 500 MG/ISO 100ML 500 MG/100 ML BAG 1003 MG IVPB ×2 (11:06→18:15)
[2022-03-01] MEDS: ALBUMIN HUMAN 25% 25 GM/100 ML 100 ML IVPB ×3 (11:06→23:31)
[2022-03-01] MEDS: CENTRAL LINE FLUSH 10 ML IV PUSH ×3 (11:07→19:41)
--- NOTE | 2022-03-01 11:58 | WPDGICN ---
Assessment and Plan Assessment and plan (1) Colitis: Code(s): K52.9 - Noninfective gastroenteritis and colitis, unspecified Status: Acute Assessment and Plan: Patient with a known history of right-sided colitis rather nonspecific but likely represents inflammatory bowel disease Crohn's disease suspected. Mesalamine previously ordered has been discontinued and should be restarted. Will obtain IBD serologies during this hospital stay. Colonoscopy performed within the last year removed revealed some ongoing nonspecific colitis in the ascending colon. Given her family history of colon cancer in her mother as well as this colitis follow-up at 3-5 year intervals has been advised (2) Sepsis: Code(s): A41.9 - Sepsis, unspecified organism Status: Acute Assessment and Plan: Patient appears to have sepsis at the time of presentation including leukocytosis decreased blood pressure. Continued ICU management at this time. I understand broad-spectrum antibiotics have been started. Should diarrhea recur then culture should be obtained. (3) Diarrhea: Code(s): R19.7 - Diarrhea, unspecified Status: Acute Assessment and Plan: Patient reported to have diarrhea as an outpatient at home but none since admission hospital. Stool cultures ordered but have not yet been accomplished given no stool since admission hospital. (4) Muscular dystrophy, unspecified: Code(s): G71.00 - Muscular dystrophy, unspecified Status: Acute GI Consult Note Consult date/time: 03/01/22 11:58 Diarrhea Reason for consult: Diarrhea HPI: Marcia Mehta is a 56 year old female I am asked to see because of diarrhea. Patient has an underlying history of muscular dystrophy. She is somewhat weak with decreased mobility. Patient has been identified to have colitis in the ascending colon suspicious for inflammatory bowel disease. Initially diagnosed 2011 felt to be infectious. It is persisted. Most recent colonoscopy reveals residual ongoing right-sided colitis in the ascending colon. Patient was advised to stay on mesalamine however I believe this is not actively being taken. Patient family history is significant her mother had colon cancer. Patient has had intermittent bouts of diarrhea. Apparently over the last 5 days had rather significant watery stools. Over the weekend she became somewhat confused with mental status changes for this reason taken to the emergency room and admitted to the hospital in to the intensive care unit because of electrolyte imbalance. Patient continues to lying bed ammonia is somewhat difficult historian at this time. She denies any bleeding. In fact has had no significant stool output since admission to the hospital. Initial CT scan suggested possible volvulus however on further review it was felt this was fluid in this colon. Review of Systems Review of Systems: Review of systems noncontributory in unable to be obtained from the patient. [facility] Past Medical History Medical History (Updated 03/01/22 @ 08:34 by Patrick Packer MD) Anxiety Arthritis Depression with anxiety E-coli UTI Hypertension Limb-girdle muscular dystrophy Major depressive disorder, single episode, unspecified Muscular dystrophy, unspecified Surgical History Surgical History (Updated 02/28/22 @ 14:06 by Aspen Garcia PA-C) History of section History of colonoscopy (03/2021) Performed due to findings of ascending colon stricture on other imaging studies. No stricture was identified however colitis was noted in the ascending colon. Previous colon biopsies demonstrated active cryptitis with mucosal erosion and cryptitis. History of open reduction and internal fixation (ORIF) procedure Repair of right humerus fracture. Pinning of left femoral neck fracture with subsequent hardware removal. Family History Family History Father Myoc
--- NOTE | 2022-03-01 13:53 | PCSTNOTE ---
Please refer to the Bedside Swallow Evaluation in the EMR. Please note, silent aspiration cannot be ruled out at bedside.
--- NOTE | 2022-03-01 17:10 | PM.IMPN ---
Progress Note: A&P Assessment and Plan (1) Sepsis: Code(s): A41.9 - Sepsis, unspecified organism Status: Acute Assessment and Plan: Septic shock refractory hypotension needing vasopressor likely secondary to colitis and UTI blood cultures, urine cultures and stool C diff ordered but patient has not had any bowel movement since arriving to ICU she does have history of E coli UTI that was sensitive to cefepime in the past. continue empiric cefepime and Flagyl procalcitonin 2.5 (2) Colitis: Code(s): K52.9 - Noninfective gastroenteritis and colitis, unspecified Status: Acute Assessment and Plan: her colitis is most likely infectious but could be non infectious stool C diff ordered but patient has not had any diarrhea since arrival to ICU check stool for WBC GI consulted History of right-sided colitis likely representing inflammatory bowel disease like Crohn's disease. Mesalamine restarted IBD serology lower Colonoscopy done in the last year (3) UTI (urinary tract infection): Code(s): N39.0 - Urinary tract infection, site not specified Status: Acute Assessment and Plan: see above (4) Shock: Code(s): R57.9 - Shock, unspecified Status: Acute Assessment and Plan: likely secondary to shock sepsis and dehydration patient has received good amount of IV fluids. I will decrease the rate at this time add 25% albumin as her albumin level is very low patient is third-spacing continue Levophed to maintain map lactic acid level is normal cortisol 18.6 TSH normal procalcitonin 2.5 (5) Dehydration: Code(s): E86.0 - Dehydration Status: Acute Assessment and Plan: secondary to diarrhea improved with fluid resuscitation (6) WEI (acute kidney injury): Code(s): N17.9 - Acute kidney failure, unspecified Status: Acute Assessment and Plan: most likely secondary to dehydration and sepsis CT scan did not show any hydronephrosis CK normal continue IV hydration creatinine has improved and came down in normal range with IV fluids monitor urine output electrolytes and creatinine (7) Hypokalemia: Code(s): E87.6 - Hypokalemia Status: Acute Assessment and Plan: improved with replacement continue with decrease rate of IV fluids with potassium (8) Volvulus: Code(s): K56.2 - Volvulus Status: Acute Assessment and Plan: initial report of CT scan suggested Volvulus. But we review by Radiology states that it was just a fluid collection (9) Hypothermia: Code(s): T68.XXXA - Hypothermia, initial encounter Status: Acute Assessment and Plan: likely secondary to sepsis and patient also has muscle dystrophy which has been replaced by obesity and fat continue warming blanket as needed check TSH (10) Chest pain: Code(s): R07.9 - Chest pain, unspecified Status: Acute Assessment and Plan: no specific details provided with patient regarding chest pain EKG reviewed troponin x3 negative lipase normal start Protonix for possible GERD or dyspepsia Plan DVT prophylaxis - Lovenox Nutrition - consult speech for swallow evaluation Code Status - Full Code Subjective Date/time seen: 03/01/22 17:10 Interval history: HPI:This is a 56-year-old female with muscular dystrophy, hypertension, anemia, depression, and anxiety who presented to the emergency department via EMS from home for evaluation of shortness of breath. She is not a great historian? at this time due to her acute illness and as such some of the following is obtained via a review of her electronic medical records as well as discussions with family members. She has had diarrhea for the last 5 days, 4 to 5 times per day however it is not necessarily unusual for her to get diarrhea and she has a history of colitis. she has been complaining of some mild, cramping ab
[2022-03-01] MEDS: KCL 20 MEQ/0.45% NS 1,000 ML 50 ML IV CONT (18:14)
[2022-03-02] VITALS (11 sets, daily range): BP systolic 116–145; BP diastolic 62–82; PULSE 99–109; RESP 13–23; TEMP 36.2–36.8; O2SAT 95–100
[2022-03-02] MEDS: fentaNYL CITRATE INJ (*CRX) 100 MCG/2 ML VIAL 25 MCG IV PUSH ×2 (03:48→10:55)
[2022-03-02] MEDS: CENTRAL LINE FLUSH 10 ML IV PUSH ×3 (03:54→21:47)
[2022-03-02 04:07] LABS: Hematocrit 25.4 % (37.0-47.0); Hemoglobin 8.4 g/dL (12.0-15.0); Mean Corpuscular HGB Conc 33.1 g/dl (32-36); Mean Corpuscular Hemoglobin 29.8 pg (26-34); Mean Corpuscular Volume 90.1 fl (80-100); Mean Platelet Volume 9.2 fl (7.4-10.4); Platelet Count Result 143 k/mm3 (150-375); Red Blood Count 2.82 M/mm3 (4.2-5.4); Red Cell Distribution Width 13.9 % (11.5-14.5); White Blood Count 3.7 K/mm3 (4.5-10.0)
[2022-03-02 04:12] LABS: Anion Gap 13 mmol/L (8-16); Carbon Dioxide 15 mmol/L (22-30); Chloride 109 mmol/L (98-107); Potassium 3.1 mmol/L (3.4-5.0); Sodium 137 mmol/L (137-145)
[2022-03-02 04:13] LABS: Alanine Aminotransferase 11 U/L (6-35); Alkaline Phosphatase 66 U/L (38-126); Aspartate Amino Transferase 11 U/L (14-36); Bilirubin,Total 0.6 mg/dL (0.2-1.3); Blood Urea Nitrogen 27 mg/dL (7-17); Calcium 8.2 mg/dL (8.4-10.2); Estimated CRCL calculation 95 ml/min; Estimated Glomerular Filt Rate > 60; Glucose 85 mg/dL (65-110); Magnesium 2.1 mg/dL (1.6-2.3); Phosphorus 2.9 mg/dL (2.5-4.5)
[2022-03-02 04:29] LABS: Band Neutrophils Percent 6 % (0-6); Eosinophils Absolute Manual 0.07 K/mm3 (0.02-0.5); Eosinophils Percent Manual 2 % (0-4); Lymphocytes Absolute Manual 0.77 K/mm3 (1.1-4.5); Monocytes Absolute Manual 0.07 K/mm3 (0.1-0.90); Monocytes Percent Manual 2 % (3-9); Neutrophils Absolute Manual 2.77 K/mm3 (1.7-7.2); Neutrophils Percent Manual 69 % (46-73); Platelet Estimate Adequate (Adequate); Total Cells Counted 100
[2022-03-02 04:30] LABS: Anisocytosis 1+ (NORMAL); Burr Cells 2+ (NORMAL)
[2022-03-02] MEDS: metroNIDAZOLE 500 MG/ISO 100ML 500 MG/100 ML BAG 100 MG IVPB ×3 (04:59→17:13)
[2022-03-02] MEDS: ALBUMIN HUMAN 25% 25 GM/100 ML 100 ML IVPB ×3 (04:59→17:13)
[2022-03-02] MEDS: SODIUM BICARBONATE 8.4% 50 MEQ/50 ML SYRINGE IV PUSH (08:04)
[2022-03-02] MEDS: PANTOPRAZOLE SODIUM IV 40 MG VIAL IV PUSH (08:05)
[2022-03-02] MEDS: SODIUM BICARBONATE TAB 650 MG TABLET PO ×2 (08:10→17:14)
[2022-03-02 08:11] LABS: Hematocrit 25.8 % (37.0-47.0); Hemoglobin 8.3 g/dL (12.0-15.0); Mean Corpuscular HGB Conc 32.2 g/dl (32-36); Mean Corpuscular Hemoglobin 29.2 pg (26-34); Mean Corpuscular Volume 90.8 fl (80-100); Mean Platelet Volume 8.9 fl (7.4-10.4); Platelet Count Result 127 k/mm3 (150-375); Red Blood Count 2.84 M/mm3 (4.2-5.4); Red Cell Distribution Width 14.1 % (11.5-14.5); White Blood Count 3.4 K/mm3 (4.5-10.0)
--- NOTE | 2022-03-02 08:16 | WPDINTPN ---
Progress Note: A&P Assessment and Plan (1) Sepsis: Code(s): A41.9 - Sepsis, unspecified organism Status: Acute Assessment and Plan: patient presented with sepsis is likely secondary to colitis and UTI -02/28: blood cultures are negative -02/28: urine culture growing E coli sensitivities pending - 911: stool C diff pending - she does have history of E coli UTI that was sensitive to cefepime in the past. - continue empiric cefepime and Flagyl - procalcitonin level was elevated (2) Colitis: Code(s): K52.9 - Noninfective gastroenteritis and colitis, unspecified Status: Acute Assessment and Plan: her colitis is most likely infectious but could be non infectious - stool C diff ordered but patient has not had any diarrhea since arrival to ICU -stool WBCs pending Appreciate GI following the patient, IBD serologies have been obtained and pending (3) UTI (urinary tract infection): Code(s): N39.0 - Urinary tract infection, site not specified Status: Acute Assessment and Plan: E coli UTI, sensitivities pending -continue cefepime (4) Shock: Code(s): R57.9 - Shock, unspecified Status: Acute Assessment and Plan: likely secondary to shock sepsis and dehydration patient has received adequate amount of IV fluids. Continue maintenance IV fluids at 50 mL/hour Continue 25% albumin as her albumin level is very low patient is third-spacing Off Levophed lactic acid level is normal (5) Dehydration: Code(s): E86.0 - Dehydration Status: Acute Assessment and Plan: secondary to diarrhea improved with fluid resuscitation (6) WEI (acute kidney injury): Code(s): N17.9 - Acute kidney failure, unspecified Status: Acute Assessment and Plan: most likely secondary to dehydration and sepsis CT scan did not show any hydronephrosis CK levels were normal Continue maintenance IV fluids Creatinine has normalized monitor urine output electrolytes and creatinine (7) Hypokalemia: Code(s): E87.6 - Hypokalemia Status: Acute Assessment and Plan: Replace potassium continue with decrease rate of IV fluids with potassium (8) Volvulus: Code(s): K56.2 - Volvulus Status: Acute Assessment and Plan: initial report of CT scan suggested Volvulus. But we review by Radiology states that it was just a fluid collection (9) Hypothermia: Code(s): T68.XXXA - Hypothermia, initial encounter Status: Acute Assessment and Plan: RESOLVED likely secondary to sepsis and patient also has muscle dystrophy which has been replaced by obesity and fat continue warming blanket as needed TSH is normal -cortisol level also normal (10) Chest pain: Code(s): R07.9 - Chest pain, unspecified Status: Acute Assessment and Plan: no specific details provided with patient regarding chest pain EKG reviewed troponin x3 negative lipase normal start Protonix for possible GERD or dyspepsia Plan DVT prophylaxis - Lovenox Nutrition -speech therapy evaluated patient for swallow test patient is eligible for thin liquids and puree diet Code Status - Full Code Total Critical Care Time - 35 minutes Due to a high probability of clinically significant, life threatening deterioration, the patient required my highest level of preparedness to intervene emergently and I personally spent this critical care time directly and personally managing the patient. This critical care time included obtaining a history; examining the patient; pulse oximetry; ordering and review of studies; arranging urgent treatment with development of a management plan; evaluation of patient's response to treatment; frequent reassessment; and discussions with other providers. It was exclusive of separately billable procedures and treating other patients and teaching time. Please see Assessment and Plan section and th
[2022-03-02 08:33] LABS: Band Neutrophils Percent 30 % (0-6); Eosinophils Absolute Manual 0.03 K/mm3 (0.02-0.5); Eosinophils Percent Manual 1 % (0-4); Lymphocytes Absolute Manual 1.19 K/mm3 (1.1-4.5); Monocytes Absolute Manual 0.17 K/mm3 (0.1-0.90); Monocytes Percent Manual 5 % (3-9); Neutrophils Percent Manual 29 % (46-73); Total Cells Counted 100
[2022-03-02 08:34] LABS: Anisocytosis 1+ (NORMAL)
[2022-03-02 09:14] LABS: Hematocrit 27.6 % (37.0-47.0); Hemoglobin 8.9 g/dL (12.0-15.0); Mean Corpuscular HGB Conc 32.2 g/dl (32-36); Mean Corpuscular Hemoglobin 29.3 pg (26-34); Mean Corpuscular Volume 90.8 fl (80-100); Mean Platelet Volume 9.5 fl (7.4-10.4); Platelet Count Result 136 k/mm3 (150-375); Red Blood Count 3.04 M/mm3 (4.2-5.4); Red Cell Distribution Width 14.2 % (11.5-14.5); White Blood Count 3.5 K/mm3 (4.5-10.0)
[2022-03-02 09:27] LABS: Anisocytosis 1+ (NORMAL); Band Neutrophils Percent 27 % (0-6); Lymphocytes Absolute Manual 0.98 K/mm3 (1.1-4.5); Monocytes Absolute Manual 0.07 K/mm3 (0.1-0.90); Monocytes Percent Manual 2 % (3-9); Neutrophils Absolute Manual 2.45 K/mm3 (1.7-7.2); Neutrophils Percent Manual 43 % (46-73); Total Cells Counted 100
[2022-03-02 10:03] LABS: Toxigenic C. Diff NEGATIVE (NEGATIVE)
--- NOTE | 2022-03-02 10:18 | WPDGIPROGNO ---
Progress Note: A&P Assessment and Plan (1) Colitis: Code(s): K52.9 - Noninfective gastroenteritis and colitis, unspecified Status: Acute Assessment and Plan: Ascending colon colitis. A she has had this on multiple previous exams. Suspect inflammatory bowel disease. IBD serology pending. Would recommend continuing mesalamine long-term. Stool cultures pending to exclude infectious etiology. (2) Urinary tract infection: Code(s): N39.0 - Urinary tract infection, site not specified Status: Acute (3) Diarrhea: Code(s): R19.7 - Diarrhea, unspecified Status: Acute Assessment and Plan: Diarrhea has occurred intermittently at home. She did have diarrhea for 5 days prior to admission. No diarrhea since admission. Stool cultures should be obtained if diarrhea recurs. (4) Muscular dystrophy, unspecified: Code(s): G71.00 - Muscular dystrophy, unspecified Status: Acute (5) Obese: Code(s): E66.9 - Obesity, unspecified Status: Acute Subjective Date/time seen: 03/02/22 10:18 Patient alert this morning. Still a questionable historian. Admitted with mental status chances. She had diarrhea as an outpatient but none since admission the hospital. Review of Systems Review of Systems: Review of systems noncontributory. Exam Narrative: Physical exam reveals patient be alert not well oriented. HEENT exam reveals no icterus. Lungs are clear. Heart without murmur. Abdomen obese. Bowel sounds present soft nontender no masses noted no localized tenderness. Objective Data Vital Signs Vital Signs: Vital Signs - 24 hr 03/01/22 12:00 03/01/22 12:00 03/01/22 12:00 Temperature 97.3 F L Pulse Rate 103 H 103 H 103 H Respiratory Rate 10 L 10 L Blood Pressure 136/76 Pulse Oximetry 99 99 Oxygen Delivery Room Air 03/01/22 12:00 03/01/22 13:00 03/01/22 14:00 Temperature Pulse Rate 103 H 109 H 103 H Respiratory Rate Blood Pressure 136/76 124/79 Pulse Oximetry Oxygen Delivery 03/01/22 14:00 03/01/22 13:15 03/01/22 13:30 Temperature 97.5 F L Pulse Rate 103 H 110 H 113 H Respiratory Rate 13 Blood Pressure 119/81 135/95 H 116/79 Pulse Oximetry 98 Oxygen Delivery 03/01/22 13:45 03/01/22 14:00 03/01/22 15:32 Temperature Pulse Rate 107 H 103 H 107 H Respiratory Rate Blood Pressure 114/78 119/81 80/45 L Pulse Oximetry Oxygen Delivery 03/01/22 16:00 03/01/22 16:00 03/01/22 16:00 Temperature 97.4 F L Pulse Rate 96 96 96 Respiratory Rate 19 19 Blood Pressure 101/62 Pulse Oximetry 100 97 Oxygen Delivery Room Air 03/01/22 18:00 03/01/22 18:00 03/01/22 19:43 Temperature 97.7 F Pulse Rate 98 98 95 Respiratory Rate 23 H Blood Pressure 118/69 121/74 Pulse Oximetry 100 Oxygen Delivery 03/01/22 20:00 03/01/22 20:00 03/01/22 21:00 Temperature 97.2 F L Pulse Rate 95 104 H 92 Respiratory Rate 23 H 24 H Blood Pressure 123/88 108/61 Pulse Oximetry 100 100 Oxygen Delivery Room Air 03/01/22 20:00 03/01/22 21:01 03/01/22 21:30 Temperature Pulse Rate 105 H 95 95 Respiratory Rate Blood Pressure 108/61 121/69 Pulse Oximetry Oxygen Delivery 03/01/22 22:00 03/01/22 22:00 03/01/22 23:00 Temperature 97.1 F L Pulse Rate 100 96 103 H Respiratory Rate 16 Blood Pressure 113/64 121/73 Pulse Oximetry 100 Oxygen Delivery 03/01/22 23:30 03/01/22 23:48 03/02/22 00:00 Temperature 97.2 F L Pulse Rate 107 H 103 H 100 Respiratory Rate 17 13 Blood Pressure 125/68 120/62 Pulse Oximetry 100 100 Oxygen Delivery Room Air 03/02/22 00:00 03/02/22 00:30 03/02/22 01:00 Temperature Pulse Rate 99 109 H 99 Respiratory Rate Blood Pressure 124/71 116/64 Pulse Oximetry Oxygen Delivery 03/02/22 02:00 03/02/22 02:00 03/02/22 03:29 Temperature 97.3 F L Pulse Rate 104 H 103 H 102 H Respiratory Rate 22 H 17 Blood Pressu
[2022-03-02] MEDS: KCL 40 MEQ/WATER 100 ML 100 ML 25 ML IVPB (10:52)
[2022-03-02] MEDS: KCL 20 MEQ/0.45% NS 1,000 ML 50 ML IV CONT (14:16)
--- NOTE | 2022-03-02 15:53 | PM.IMPN ---
Progress Note: A&P Assessment and Plan (1) Sepsis: Code(s): A41.9 - Sepsis, unspecified organism Status: Acute Assessment and Plan: Septic shock refractory hypotension needing vasopressor likely secondary to colitis and UTI blood cultures, urine cultures no growth to date. stool for c diff negative she does have history of E coli UTI that was sensitive to cefepime in the past. continue empiric cefepime and Flagyl procalcitonin 2.5 (2) Colitis: Code(s): K52.9 - Noninfective gastroenteritis and colitis, unspecified Status: Acute Assessment and Plan: her colitis is most likely infectious but could be non infectious stool C diff ordered but patient has not had any diarrhea since arrival to ICU check stool for WBC GI consulted History of right-sided colitis likely representing inflammatory bowel disease like Crohn's disease. Mesalamine restarted IBD serology pending Colonoscopy done in the last year (3) UTI (urinary tract infection): Code(s): N39.0 - Urinary tract infection, site not specified Status: Acute Assessment and Plan: see above (4) Shock: Code(s): R57.9 - Shock, unspecified Status: Acute Assessment and Plan: likely secondary to shock sepsis and dehydration patient has received good amount of IV fluids. I will decrease the rate at this time add 25% albumin as her albumin level is very low patient is third-spacing continue Levophed to maintain map lactic acid level is normal cortisol 18.6 TSH normal procalcitonin 2.5 (5) Dehydration: Code(s): E86.0 - Dehydration Status: Acute Assessment and Plan: secondary to diarrhea improved with fluid resuscitation (6) WEI (acute kidney injury): Code(s): N17.9 - Acute kidney failure, unspecified Status: Acute Assessment and Plan: most likely secondary to dehydration and sepsis CT scan did not show any hydronephrosis CK normal continue IV hydration creatinine has improved and came down to normal range with IV fluids monitor urine output electrolytes and creatinine (7) Hypokalemia: Code(s): E87.6 - Hypokalemia Status: Acute Assessment and Plan: improved with replacement continue with decrease rate of IV fluids with potassium (8) Volvulus: Code(s): K56.2 - Volvulus Status: Acute Assessment and Plan: initial report of CT scan suggested Volvulus. But we review by Radiology states that it was just a fluid collection (9) Hypothermia: Code(s): T68.XXXA - Hypothermia, initial encounter Status: Acute Assessment and Plan: likely secondary to sepsis and patient also has muscle dystrophy which has been replaced by obesity and fat continue warming blanket as needed TSH normal (10) Chest pain: Code(s): R07.9 - Chest pain, unspecified Status: Acute Assessment and Plan: no specific details provided with patient regarding chest pain EKG reviewed troponin x3 negative lipase normal Protonix for possible GERD or dyspepsia Plan DVT prophylaxis - Lovenox Nutrition - consult speech for swallow evaluation Code Status - Full Code Subjective Date/time seen: 03/02/22 15:53 Interval history: HPI:This is a 56-year-old female with muscular dystrophy, hypertension, anemia, depression, and anxiety who presented to the emergency department via EMS from home for evaluation of shortness of breath. She is not a great historian? at this time due to her acute illness and as such some of the following is obtained via a review of her electronic medical records as well as discussions with family members. She has had diarrhea for the last 5 days, 4 to 5 times per day however it is not necessarily unusual for her to get diarrhea and she has a history of colitis. she has been complaining of some mild, cramping abdominal pain and her appetite has been poor wi
--- NOTE | 2022-03-02 15:56 | PC.NURSE ---
Faxed and Tubed [facility] at [phone]. 2nd floor notified.
--- NOTE | 2022-03-02 16:57 | PC.NURSE ---
This patient, Marcia Mehta, was transferred to [facility] on 03/02/22 at 1640. Personal belongings sent with patient. Report given to Sobeida WELCH. Appropriate documentation sent with patient.
[2022-03-02] MEDS: diphenhydrAMINE HCl CAP 25 MG CAPSULE PO (21:46)
[2022-03-03] MEDS: ALTEPLASE 2 MG VIAL (CATHFLO) IV PUSH (01:09)
[2022-03-03 03:21] LABS: Hematocrit 25.7 % (37.0-47.0); Hemoglobin 8.5 g/dL (12.0-15.0); Mean Corpuscular HGB Conc 33.1 g/dl (32-36); Mean Corpuscular Hemoglobin 29.9 pg (26-34); Mean Corpuscular Volume 90.5 fl (80-100); Mean Platelet Volume 9.4 fl (7.4-10.4); Platelet Count Result 153 k/mm3 (150-375); Red Blood Count 2.84 M/mm3 (4.2-5.4); Red Cell Distribution Width 14.3 % (11.5-14.5); White Blood Count 3.7 K/mm3 (4.5-10.0)
[2022-03-03 03:30] LABS: Alanine Aminotransferase 11 U/L (6-35); Albumin Level 3.2 g/dL (3.5-5.1); Alkaline Phosphatase 65 U/L (38-126); Anion Gap 12 mmol/L (8-16); Aspartate Amino Transferase 10 U/L (14-36); Bilirubin,Total 0.7 mg/dL (0.2-1.3); Blood Urea Nitrogen 18 mg/dL (7-17); Calcium 8.3 mg/dL (8.4-10.2); Carbon Dioxide 17 mmol/L (22-30); Chloride 112 mmol/L (98-107); Estimated CRCL calculation 109 ml/min; Estimated Glomerular Filt Rate > 60; Glucose 88 mg/dL (65-110); Magnesium 1.7 mg/dL (1.6-2.3); Phosphorus 1.9 mg/dL (2.5-4.5); Potassium 3.2 mmol/L (3.4-5.0); Sodium 141 mmol/L (137-145)
[2022-03-03 03:56] LABS: Lymphocytes Absolute Manual 1.88 K/mm3 (1.1-4.5); Lymphocytes Percent Manual 51 % (18-44); Total Cells Counted 100
[2022-03-03 03:57] LABS: Band Neutrophils Percent 24 % (0-6); Eosinophils Absolute Manual 0.29 K/mm3 (0.02-0.5); Eosinophils Percent Manual 8 % (0-4); Monocytes Absolute Manual 0.07 K/mm3 (0.1-0.90); Monocytes Percent Manual 2 % (3-9)
[2022-03-03 03:58] LABS: Neutrophils Absolute Manual 1.44 K/mm3 (1.7-7.2); Neutrophils Percent Manual 15 % (46-73); Platelet Estimate Adequate (Adequate); Smudge Cells FEW
[2022-03-03 03:59] LABS: Hypochromasia 1+ (NORMAL)
[2022-03-03 04:00] LABS: Atypical Lymphocytes Present; Toxic Granulation Present (NORMAL)
[2022-03-03 04:03] LABS: Vancomycin Trough 5.9 ug/mL (10.0-20.0)
[2022-03-03] MEDS: CENTRAL LINE FLUSH 10 ML IV PUSH ×4 (06:22→21:33)
[2022-03-03] MEDS: metroNIDAZOLE 500 MG/ISO 100ML 500 MG/100 ML BAG 100 MG IVPB ×4 (06:22→17:10)
[2022-03-03 06:37] VITALS: BP 144/67; PULSE 100; RESP 16; TEMP 36.9; O2SAT 98
--- NOTE | 2022-03-03 07:34 | WPDGIPROGNO ---
Progress Note: A&P Assessment and Plan (1) Diarrhea: Code(s): R19.7 - Diarrhea, unspecified Status: Acute Assessment and Plan: Patient with diarrhea prior to admission of the hospital. Patient had no diarrhea until yesterday. Plan to check stool cultures. She has been on empiric antibiotics. History of nonspecific ascending colon colitis. Plan is for trial of mesalamine pending results cultures. Fiber supplements in diet may be of some additional benefit given intermittent nature of diarrhea. (2) Obese: Code(s): E66.9 - Obesity, unspecified Status: Acute (3) Urinary tract infection: Code(s): N39.0 - Urinary tract infection, site not specified Status: Acute (4) Colitis: Code(s): K52.9 - Noninfective gastroenteritis and colitis, unspecified Status: Acute Assessment and Plan: Patient has had colitis in the ascending colon on previous endoscopies. This felt be nonspecific. IBD serology is negative. A trial of mesalamine was felt appropriate likely should continue. (5) Muscular dystrophy, unspecified: Code(s): G71.00 - Muscular dystrophy, unspecified Status: Acute Subjective Date/time seen: 03/03/22 07:34 Patient now on regular floor. His began to have diarrhea since yesterday. Apparently a fecal tube was placed. It is unclear if stool cultures have been obtained yet. Patient denies significant abdominal pain. Tolerating diet. Review of Systems Review of Systems: Review of systems noncontributory. Exam Narrative: Physical exam reveals patient be alert. She remains bedridden. HEENT exam reveals no icterus. Lungs are clear. Heart without murmur. Abdomen is obese. Bowel sounds are present soft nontender with no masses. Objective Data Vital Signs Vital Signs: Vital Signs - 24 hr 03/02/22 08:00 03/02/22 08:00 03/02/22 08:00 Temperature 97.4 F L Pulse Rate 105 H 106 H Respiratory Rate 23 H Blood Pressure 143/82 H Pulse Oximetry 100 Oxygen Delivery Room Air 03/02/22 10:00 03/02/22 16:00 03/02/22 20:14 Temperature 98.3 F 97.6 F Pulse Rate 102 H 100 102 H Respiratory Rate 18 16 Blood Pressure 143/82 H 145/72 H Pulse Oximetry 100 95 Oxygen Delivery 03/03/22 06:37 Temperature 98.5 F Pulse Rate 100 Respiratory Rate 16 Blood Pressure 144/67 H Pulse Oximetry 98 Oxygen Delivery Intake/Output Intake/Output: Intake & Output 02/28/22 03/01/22 03/02/22 03/03/22 23:59 23:59 23:59 23:59 Intake Total 3200 2990 2850 500 Output Total 618 765 5868 1300 Balance 2850 2290 300 -800 Meds/Results Medications: Active Medications Generic Name Dose Route Start Last Admin Trade Name Freq PRN Reason Stop Dose Admin Alteplase, Recombinant 2 mg 03/02/22 18:34 03/03/22 01:09 Alteplase 2 Mg Vial (Cathflo) IV PUSH 2 mg ONCE PRN Administration Line Occlusion Diphenhydramine HCl 25 mg 03/02/22 20:34 03/02/22 21:46 Diphenhydramine Hcl Cap 25 Mg Capsule PO 25 mg Q6H PRN Administration Itching Enoxaparin Sodium 40 mg 03/01/22 09:00 03/02/22 10:28 Enoxaparin 40 Mg/0.4 Ml Syringe SUB-Q Not Given DAILY BENTLEY Fentanyl Citrate 25 mcg 02/28/22 12:59 03/02/22 10:55 Fentanyl Citrate Inj (*Crx) 100 Mcg/2 Ml Vial IV PUSH 25 mcg Q3H PRN Administration Pain Rated 7-10 Potassium Chloride/Sodium Chloride 1,000 mls @ 50 mls/hr 02/28/22 11:25 03/02/22 14:16 Kcl 20 Meq/0.45% Ns IV CONT 50 mls/hr .Q20H BENTLEY Administration Metronidazole 500 mg in 100 mls @ 100 mls/hr 02/28/22 13:30 03/03/22 07:18 Flagyl 500 Mg/Iso Soln 100 Ml IVPB Infused Q6HR BENTLEY Infusion Norepinephrine Bitartrate 8 mg in 250 mls @ 0 mls/hr 03/01/22 09:50 03/01/22 23:00 Levophed 8 Mg/D5w 250 Ml IV CONT 0 mcg/min .Q0M BENTLEY 0 mls/hr Titration Protocol 0 MCG/MIN Ceftriaxone Sodium/Dextrose 1 gm in 50 mls @ 100 mls/hr 03/02/22 10:05 03/02/22 11:22
[2022-03-03] MEDS: calcium polycarbophiL 625 MG TABLET 1250 MG PO ×2 (08:51→17:09)
[2022-03-03] MEDS: SODIUM BICARBONATE TAB 650 MG TABLET PO ×2 (08:51→17:09)
[2022-03-03] MEDS: POTASSIUM CHLORIDE 20 MEQ TABLET PO (08:51)
[2022-03-03] MEDS: MESALAMINE 400 MG DELAYED RELEASE CAPSULE 800 MG PO ×2 (08:52→17:09)
[2022-03-03] MEDS: PANTOPRAZOLE SODIUM IV 40 MG VIAL IV PUSH (08:52)
[2022-03-03] MEDS: KCL 20 MEQ/0.45% NS 1,000 ML 50 ML IV CONT (08:58)
[2022-03-03 09:53] LABS: Monoscreen Negative (Negative); Negative Monotest Control Negative (Negative); Positive Monotest Control Positive (Positive)
[2022-03-03 10:03] LABS: Influenza Control Positive
[2022-03-03 10:33] VITALS: BP 132/58; PULSE 124; RESP 16; TEMP 36.9; O2SAT 98
[2022-03-03 14:00] VITALS: BP 109/49; PULSE 125; RESP 16; TEMP 36.2; O2SAT 98
[2022-03-03 14:14] VITALS: BP 120/70; PULSE 125; RESP 16; TEMP 36.2; O2SAT 98
--- NOTE | 2022-03-03 14:49 | PC.NURSE ---
On 03/03/22, the student, [Annie Short], provided care and completed angelcam documentation on this patient. I have reviewed the student's documentation and agree with the findings.
[2022-03-03 16:00] VITALS: BP 134/67; PULSE 123; RESP 16; TEMP 36.1; O2SAT 100
--- NOTE | 2022-03-03 16:00 | P.PNIM_ITS ---
Progress Note: A&P Assessment and Plan (1) Sepsis: Code(s): A41.9 - Sepsis, unspecified organism Status: Acute Assessment and Plan: Septic shock refractory hypotension needing vasopressor * likely secondary to colitis and UTI * blood cultures pending * stool cultures pending * no longer requiring pressors * monitor intake and output, vital signs, labs * continue IV ceftriaxone and Flagyl * continue IV fluids (2) Colitis: Code(s): K52.9 - Noninfective gastroenteritis and colitis, unspecified Status: Acute Assessment and Plan: most likely infectious * continue ceftriaxone and metronidazole * appreciate GI consultation * C diff negative * additional stool cultures pending * history of right-sided colitis, concerning for IBD. GI recommended mesalamine, however patient states she is not tolerant to this and declined. (3) UTI (urinary tract infection): Code(s): N39.0 - Urinary tract infection, site not specified Status: Acute Assessment and Plan: urine culture with growth of 10-49k E. coli * continue ceftriaxone based on sensitivity report (4) Shock: Code(s): R57.9 - Shock, unspecified Status: Acute Assessment and Plan: resolved. [place] to be secondary to sepsis * patient has been adequately rehydrated. Received Levophed and albumin in ICU * procalcitonin 2.5 * TSH normal * cortisol 18.6 * lactic acid normal (5) WEI (acute kidney injury): Code(s): N17.9 - Acute kidney failure, unspecified Status: Acute Assessment and Plan: most likely secondary to dehydration and sepsis * CT scan did not show any hydronephrosis * CK normal * renal function appears to be a baseline (6) Hypokalemia: Code(s): E87.6 - Hypokalemia Status: Acute Assessment and Plan: potassium was 3.2 today * supplemental KCL * monitor BMP (7) Volvulus: Code(s): K56.2 - Volvulus Status: Acute Assessment and Plan: Ruled out. Initial report of CT scan suggested volvulus however with further evaluation, this appear to be related to fluid collection. (8) Hypothermia: Code(s): T68.XXXA - Hypothermia, initial encounter Status: Acute Assessment and Plan: Resolved. likely secondary to sepsis and patient also has muscle dystrophy which has been replaced by obesity and fat * Temp improved with warming blanket (9) Chest pain: Code(s): R07.9 - Chest pain, unspecified Status: Acute Assessment and Plan: resolved. * EKG reviewed * troponin x3 negative * lipase normal * Protonix for possible GERD or dyspepsia (10) Leukopenia: Code(s): D72.819 - Decreased white blood cell count, unspecified Status: Acute Assessment and Plan: white blood cell count is 3.7 * manual diff reveals 24 present bands, increased lymphocytes with normal abso lute lymphocyte count * abnormality of differential likely related to sepsis * COVID, mono, influenza negative * repeat CBC with differential tomorrow Subjective Date/time seen: 03/03/22 16:00 Interval history: date of service: 03/03/2022 Marcia Mehta is a 56-year-old female with a history of muscular dystrophy, hypertension, anxiety, depression who is seen in follow-up for septic shock secondary to UTI in colitis. Today she endorses trouble when taking a big deep breath. She fee
--- NOTE | 2022-03-03 16:00 | PM.IMPN ---
Progress Note: A&P Assessment and Plan (1) Sepsis: Code(s): A41.9 - Sepsis, unspecified organism Status: Acute Assessment and Plan: Septic shock refractory hypotension needing vasopressor likely secondary to colitis and UTI blood cultures pending stool cultures pending no longer requiring pressors monitor intake and output, vital signs, labs continue IV ceftriaxone and Flagyl continue IV fluids (2) Colitis: Code(s): K52.9 - Noninfective gastroenteritis and colitis, unspecified Status: Acute Assessment and Plan: most likely infectious continue ceftriaxone and metronidazole appreciate GI consultation C diff negative additional stool cultures pending history of right-sided colitis, concerning for IBD. GI recommended mesalamine, however patient states she is not tolerant to this and declined. (3) UTI (urinary tract infection): Code(s): N39.0 - Urinary tract infection, site not specified Status: Acute Assessment and Plan: urine culture with growth of 10-49k E. coli continue ceftriaxone based on sensitivity report (4) Shock: Code(s): R57.9 - Shock, unspecified Status: Acute Assessment and Plan: resolved. [place] to be secondary to sepsis patient has been adequately rehydrated. Received Levophed and albumin in ICU procalcitonin 2.5 TSH normal cortisol 18.6 lactic acid normal (5) WEI (acute kidney injury): Code(s): N17.9 - Acute kidney failure, unspecified Status: Acute Assessment and Plan: most likely secondary to dehydration and sepsis CT scan did not show any hydronephrosis CK normal renal function appears to be a baseline (6) Hypokalemia: Code(s): E87.6 - Hypokalemia Status: Acute Assessment and Plan: potassium was 3.2 today supplemental KCL monitor BMP (7) Volvulus: Code(s): K56.2 - Volvulus Status: Acute Assessment and Plan: Ruled out. Initial report of CT scan suggested volvulus however with further evaluation, this appear to be related to fluid collection. (8) Hypothermia: Code(s): T68.XXXA - Hypothermia, initial encounter Status: Acute Assessment and Plan: Resolved. likely secondary to sepsis and patient also has muscle dystrophy which has been replaced by obesity and fat Temp improved with warming blanket (9) Chest pain: Code(s): R07.9 - Chest pain, unspecified Status: Acute Assessment and Plan: resolved. EKG reviewed troponin x3 negative lipase normal Protonix for possible GERD or dyspepsia (10) Leukopenia: Code(s): D72.819 - Decreased white blood cell count, unspecified Status: Acute Assessment and Plan: white blood cell count is 3.7 manual diff reveals 24 present bands, increased lymphocytes with normal absolute lymphocyte count abnormality of differential likely related to sepsis COVID, mono, influenza negative repeat CBC with differential tomorrow Subjective Date/time seen: 03/03/22 16:00 Interval history: date of service: 03/03/2022 Marcia Mehta is a 56-year-old female with a history of muscular dystrophy, hypertension, anxiety, depression who is seen in follow-up for septic shock secondary to UTI in colitis. Today she endorses trouble when taking a big deep breath. She feels short of breath. She denies cough. She denies fever, chills, nausea, or vomiting. no abdominal pain. States her appetite is good. She states that her fecal tube was leaking earlier today but this has resolved. No issues with her [place] catheter. Patient states she was not able to sleep last night. Review of Systems Review of Systems: All systems reviewed & are unremarkable except as noted in HPI and below Exam Narrative: General: Obese, chronically ill-appearing 56 -year-old female, sitting up in bed, comfor
--- NOTE | 2022-03-03 16:48 | PCPTNOTE ---
Patient is dependent at baseline. Hospitalist called/updated on prior level of function. Hospitalist OK DC of orders at this time due to patient being dependent.
[2022-03-03 19:36] VITALS: BP 147/72; PULSE 100; RESP 16; TEMP 36.8; O2SAT 97
[2022-03-03] MEDS: MELATONIN 5 MG TABLET PO (22:25)
[2022-03-04] MEDS: metroNIDAZOLE 500 MG/ISO 100ML 500 MG/100 ML BAG 100 MG IVPB ×5 (00:09→23:30)
[2022-03-04 05:29] LABS: Hematocrit 26.4 % (37.0-47.0); Hemoglobin 8.5 g/dL (12.0-15.0); Mean Corpuscular HGB Conc 32.2 g/dl (32-36); Mean Corpuscular Hemoglobin 29.3 pg (26-34); Mean Platelet Volume 9.5 fl (7.4-10.4); Platelet Count Result 191 k/mm3 (150-375); Red Cell Distribution Width 14.4 % (11.5-14.5); White Blood Count 4.1 K/mm3 (4.5-10.0)
[2022-03-04 05:33] LABS: Alanine Aminotransferase 10 U/L (6-35); Albumin Level 2.8 g/dL (3.5-5.1); Alkaline Phosphatase 87 U/L (38-126); Anion Gap 13 mmol/L (8-16); Aspartate Amino Transferase 14 U/L (14-36); Bilirubin,Total 0.6 mg/dL (0.2-1.3); Blood Urea Nitrogen 13 mg/dL (7-17); Carbon Dioxide 18 mmol/L (22-30); Chloride 111 mmol/L (98-107); Estimated CRCL calculation 99 ml/min; Estimated Glomerular Filt Rate > 60; Glucose 102 mg/dL (65-110); Magnesium 1.6 mg/dL (1.6-2.3); Phosphorus 1.7 mg/dL (2.5-4.5); Potassium 3.3 mmol/L (3.4-5.0); Sodium 142 mmol/L (137-145)
[2022-03-04] MEDS: CENTRAL LINE FLUSH 10 ML IV PUSH (05:42)
[2022-03-04 07:06] VITALS: BP 141/81; PULSE 89; RESP 16; TEMP 36.5; O2SAT 96
--- NOTE | 2022-03-04 07:09 | PCOTNOTE ---
Per physical therapy - Patient is dependent at baseline. Hospitalist called/updated on prior level of function. Hospitalist OK DC of therapy orders at this time due to patient being dependent.
[2022-03-04] MEDS: KCL 20 MEQ/0.45% NS 1,000 ML 50 ML IV CONT (08:16)
[2022-03-04 08:38] LABS: Band Neutrophils Percent 16 % (0-6); Eosinophils Absolute Manual 0.08 K/mm3 (0.02-0.5); Eosinophils Percent Manual 2 % (0-4); Lymphocytes Absolute Manual 1.59 K/mm3 (1.1-4.5); Monocytes Absolute Manual 0.16 K/mm3 (0.1-0.90); Monocytes Percent Manual 4 % (3-9); Neutrophils Absolute Manual 2.25 K/mm3 (1.7-7.2); Neutrophils Percent Manual 39 % (46-73); Platelet Estimate Adequate (Adequate); Total Cells Counted 100
[2022-03-04 08:39] LABS: Anisocytosis 2+ (NORMAL); Hypochromasia 1+ (NORMAL)
[2022-03-04] MEDS: POTASSIUM CHLORIDE 20 MEQ TABLET PO (08:55)
[2022-03-04] MEDS: POTASSIUM PHOS/SODIUM PHOS 250 MG TABLET 500 MG PO ×3 (08:56→17:32)
[2022-03-04] MEDS: MESALAMINE 400 MG DELAYED RELEASE CAPSULE 800 MG PO ×3 (08:57→17:32)
[2022-03-04] MEDS: SODIUM BICARBONATE TAB 650 MG TABLET PO ×2 (08:57→17:33)
[2022-03-04] MEDS: PANTOPRAZOLE SODIUM IV 40 MG VIAL IV PUSH (08:57)
--- NOTE | 2022-03-04 10:00 | WPDGIPROGNO ---
Progress Note: A&P Assessment and Plan (1) Diarrhea: Code(s): R19.7 - Diarrhea, unspecified Status: Acute Assessment and Plan: Diarrhea appears to occur intermittently. Etiology remains somewhat unclear. She is known to have a nonspecific ascending colon colitis. Currently she refuses mesalamine trial as she feels this makes her weaker. She is weak at baseline because of muscular dystrophy. Currently on a trial of antibiotics. Stool cultures are pending at this time. Started on cephalosporin and Flagyl when she was admitted. (2) Colitis: Code(s): K52.9 - Noninfective gastroenteritis and colitis, unspecified Status: Acute Assessment and Plan: Patient with a history of ascending colon colitis felt to be nonspecific. Possibly inflammatory bowel disease of a subset because it has been persistent on several examinations. Potentially this contributes to her diarrhea. Stool cultures pending. Am hesitant to start more intense therapy given her muscular dystrophy. (3) Acute kidney failure: Code(s): N17.9 - Acute kidney failure, unspecified Status: Acute (4) Urinary tract infection: Code(s): N39.0 - Urinary tract infection, site not specified Status: Acute (5) Obese: Code(s): E66.9 - Obesity, unspecified Status: Acute (6) Muscular dystrophy, unspecified: Code(s): G71.00 - Muscular dystrophy, unspecified Status: Acute Subjective Date/time seen: 03/04/22 10:00 Patient lying in bed appears comfortable. Reports several bouts of diarrhea stool over the last day and a half. Currently refuses trial of mesalamine. As she feels this makes her weaker. She is weak at baseline because I am muscular dystrophy. Review of Systems Review of Systems: Review of systems noncontributory. Exam Narrative: Physical exam reveals patient be alert comfortable at rest HEENT exam unremarkable. Patient is anicteric. Lungs are clear. Heart without murmur. Abdomen is obese. Bowel sounds are present soft no localized tenderness. Fecal containment tube in place. Objective Data Vital Signs Vital Signs: Vital Signs - 24 hr 03/03/22 10:33 03/03/22 14:14 03/03/22 14:00 Temperature 98.4 F 97.2 F L 97.2 F L Pulse Rate 124 H 125 H 125 H Respiratory Rate 16 16 16 Blood Pressure 132/58 L 120/70 109/49 L Pulse Oximetry 98 98 98 Oxygen Delivery 03/03/22 16:00 03/03/22 19:36 03/03/22 20:00 Temperature 97 F L 98.3 F Pulse Rate 123 H 100 Respiratory Rate 16 16 Blood Pressure 134/67 147/72 H Pulse Oximetry 100 97 Oxygen Delivery Room Air 03/04/22 07:06 Temperature 97.7 F Pulse Rate 89 Respiratory Rate 16 Blood Pressure 141/81 H Pulse Oximetry 96 Oxygen Delivery Intake/Output Intake/Output: Intake & Output 03/01/22 03/02/22 03/03/22 03/04/22 23:59 23:59 23:59 23:59 Intake Total 2990 2850 2510 1750 Output Total 700 2550 2350 1350 Balance 2290 300 160 400 Meds/Results Medications: Active Medications Generic Name Dose Route Start Last Admin Trade Name Freq PRN Reason Stop Dose Admin Alteplase, Recombinant 2 mg 03/02/22 18:34 03/03/22 01:09 Alteplase 2 Mg Vial (Cathflo) IV PUSH 2 mg ONCE PRN Administration Line Occlusion Enoxaparin Sodium 40 mg 03/01/22 09:00 03/02/22 10:28 Enoxaparin 40 Mg/0.4 Ml Syringe SUB-Q Not Given DAILY BENTLEY Fentanyl Citrate 25 mcg 02/28/22 12:59 03/02/22 10:55 Fentanyl Citrate Inj (*Crx) 100 Mcg/2 Ml Vial IV PUSH 25 mcg Q3H PRN Administration Pain Rated 7-10 Potassium Chloride/Sodium Chloride 1,000 mls @ 50 mls/hr 02/28/22 11:25 03/04/22 08:16 Kcl 20 Meq/0.45% Ns IV CONT 50 mls/hr .Q20H BENTLEY Administration Metronidazole 500 mg in 100 mls @ 100 mls/hr 02/28/22 13:30 03/04/22 06:41 Flagyl 500 Mg/Iso Soln 100 Ml IVPB Infused Q6HR BENTLEY Infusion Ceftriaxone Sodium/Dextrose 1 gm in 50 mls @ 100 mls/hr 03/02/22 10:05 03/04/22
[2022-03-04] MEDS: LOPERAMIDE HCL 2 MG CAPSULE PO ×3 (12:03→21:15)
[2022-03-04] MEDS: ALTEPLASE 2 MG VIAL (CATHFLO) IV PUSH (13:41)
[2022-03-04 15:03] VITALS: BP 142/76; PULSE 108; RESP 20; TEMP 37.3; O2SAT 99
--- NOTE | 2022-03-04 15:26 | P.PNIM_ITS ---
Progress Note: A&P Assessment and Plan (1) Sepsis: Code(s): A41.9 - Sepsis, unspecified organism <Luzmaria Rupal. Gusac, PA-C - Last Filed: 03/04/22 15:46> Status: Acute <Luzmaria J. Stimac, PA-C - Last Filed: 03/04/22 15:46> Assessment and Plan: Septic shock with refractory hypotension needing vasopressor * likely secondary to colitis and UTI * blood cultures pending * salmonella/shigella pending, additional stool cultures negative * no longer requiring pressors. Remove femoral line * monitor intake and output, vital signs, labs * continue IV ceftriaxone and Flagyl <Luzmaria J. Stimac, PA-C - Last Filed: 03/04/22 15:46> (2) Colitis: Code(s): K52.9 - Noninfective gastroenteritis and colitis, unspecified <Luzmaria J. Stimac, PA-C - Last Filed: 03/04/22 15:46> Status: Acute <Luzmaria J. Stimac, PA-C - Last Filed: 03/04/22 15:46> Assessment and Plan: most likely infectious * continue ceftriaxone and metronidazole * appreciate GI consultation * C diff negative * additional stool cultures pending * history of right-sided colitis, concerning for IBD. Continue mesalamine per GI recommendations. Pt refused on 03/03, stating she is not tolerant to this medication due to increased weakness. Today is agreeable to proceed. * continue with gentle IV fluids via peripheral IV as diarrhea persists <Luzmaria J. Stimac, PA-C - Last Filed: 03/04/22 15:46> (3) UTI (urinary tract infection): Code(s): N39.0 - Urinary tract infection, site not specified <Luzmaria J. Stimac, PA-C - Last Filed: 03/04/22 15:46> Status: Acute <Luzmaria J. Stimac, PA-C - Last Filed: 03/04/22 15:46> Assessment and Plan: urine culture with growth of 10-49k E. coli * continue ceftriaxone based on sensitivity report <Luzmaria J. Stimac, PA-C - Last Filed: 03/04/22 15:46> (4) Shock: Code(s): R57.9 - Shock, unspecified <Luzmaria J. Stimac, PA-C - Last Filed: 03/04/22 15:46> Status: Acute <CHANTAL KnightC - Last Filed: 03/04/22 15:46> Assessment and Plan: resolved. [place] to be secondary to sepsis * patient has been adequately rehydrated. Received Levophed and albumin in ICU * procalcitonin 2.5 * TSH normal * cortisol 18.6 * lactic acid normal <CHANTAL KnightC - Last Filed: 03/04/22 15:46> (5) WEI (acute kidney injury): Code(s): N17.9 - Acute kidney failure, unspecified <KAYY Knight-C - Last Filed: 03/04/22 15:46> Status: Acute <CHANTAL KnightC - Last Filed: 03/04/22 15:46> Assessment and Plan: most likely secondary to dehydration and sepsis * CT scan did not show any hydronephrosis * CK normal * renal function appears to be a baseline <CHANTAL KnightC - Last Filed: 03/04/22 15:46> (6) Hypokalemia: Code(s): E87.6 - Hypokalemia <CHANTAL KnightC - Last Filed: 03/04/22 15:46> Status: Acute <CHANTAL KnightC - Last Filed: 03/04/22 15:46> Assessment and Plan: potassium was 3.3 today * supplemental KCL * monitor BMP <CHANTAL KnightC - Last Filed: 03/04/22 15:46> (7) Hypothermia: Code(s): T68.XXXA - Hypothermia, initial encounter <KAYY Knight-C - Last Filed: 03/04/22 15:46> Status: Acute <KAYY Knight-C - Last Filed: 03/04/22 15:46> Assessment and Plan: Resolved. likely secondary to sepsis and patient also has muscle dystrophy which has been replaced by obesity and fat * Temp i
--- NOTE | 2022-03-04 15:26 | PM.IMPN ---
Progress Note: A&P Assessment and Plan (1) Sepsis: Code(s): A41.9 - Sepsis, unspecified organism <Luzmaria J. Stimac, PA-C - Last Filed: 03/04/22 15:46> Status: Acute <Luzmaria J. Stimac, PA-C - Last Filed: 03/04/22 15:46> Assessment and Plan: Septic shock with refractory hypotension needing vasopressor likely secondary to colitis and UTI blood cultures pending salmonella/shigella pending, additional stool cultures negative no longer requiring pressors. Remove femoral line monitor intake and output, vital signs, labs continue IV ceftriaxone and Flagyl <Luzmaria J. Stimac, PA-C - Last Filed: 03/04/22 15:46> (2) Colitis: Code(s): K52.9 - Noninfective gastroenteritis and colitis, unspecified <Luzmaria J. Stimac, PA-C - Last Filed: 03/04/22 15:46> Status: Acute <Luzmaria J. Stimac, PA-C - Last Filed: 03/04/22 15:46> Assessment and Plan: most likely infectious continue ceftriaxone and metronidazole appreciate GI consultation C diff negative additional stool cultures pending history of right-sided colitis, concerning for IBD. Continue mesalamine per GI recommendations. Pt refused on 03/03, stating she is not tolerant to this medication due to increased weakness. Today is agreeable to proceed. continue with gentle IV fluids via peripheral IV as diarrhea persists <Luzmaria J. Stimac, PA-C - Last Filed: 03/04/22 15:46> (3) UTI (urinary tract infection): Code(s): N39.0 - Urinary tract infection, site not specified <Luzmaria J. Stimac, PA-C - Last Filed: 03/04/22 15:46> Status: Acute <Luzmaria J. Stimac, PA-C - Last Filed: 03/04/22 15:46> Assessment and Plan: urine culture with growth of 10-49k E. coli continue ceftriaxone based on sensitivity report <Luzmaria J. Stimac, PA-C - Last Filed: 03/04/22 15:46> (4) Shock: Code(s): R57.9 - Shock, unspecified <Luzmaria J. Stimac, PA-C - Last Filed: 03/04/22 15:46> Status: Acute <Luzmaria Hooks, PA-C - Last Filed: 03/04/22 15:46> Assessment and Plan: resolved. [place] to be secondary to sepsis patient has been adequately rehydrated. Received Levophed and albumin in ICU procalcitonin 2.5 TSH normal cortisol 18.6 lactic acid normal <Luzmaria Hooks, PA-C - Last Filed: 03/04/22 15:46> (5) WEI (acute kidney injury): Code(s): N17.9 - Acute kidney failure, unspecified <Luzmaria Hooks, PA-C - Last Filed: 03/04/22 15:46> Status: Acute <Luzmaria Hooks, PA-C - Last Filed: 03/04/22 15:46> Assessment and Plan: most likely secondary to dehydration and sepsis CT scan did not show any hydronephrosis CK normal renal function appears to be a baseline <Luzmaria Hooks, PA-C - Last Filed: 03/04/22 15:46> (6) Hypokalemia: Code(s): E87.6 - Hypokalemia <Luzmaria Hooks, PA-C - Last Filed: 03/04/22 15:46> Status: Acute <Luzmaria Hooks, PA-C - Last Filed: 03/04/22 15:46> Assessment and Plan: potassium was 3.3 today supplemental KCL monitor BMP <Luzmaria Hooks, PA-C - Last Filed: 03/04/22 15:46> (7) Hypothermia: Code(s): T68.XXXA - Hypothermia, initial encounter <Luzmaria Hooks, PA-C - Last Filed: 03/04/22 15:46> Status: Acute <Luzmaria Hooks, PA-C - Last Filed: 03/04/22 15:46> Assessment and Plan: Resolved. likely secondary to sepsis and patient also has muscle dystrophy which has been replaced by obesity and fat Temp improved with warming blanket <Luzmaria Hooks, PA-C - Last Filed: 03/04/22 15:46> (8) Chest pain: Code(s): R07.9 - Chest pain, unspecified <Luzmaria Hooks PA-C - Last Filed: 03/04/22 15:46> Status: Acute <Luzmaria Hooks PA-C - Last Filed: 03/04/22 15:46> Assessment and Plan: resolved. EKG reviewed troponin x3 negative lipase normal contin
[2022-03-04] MEDS: NEOMYCIN/POLYMYXIN/BACITRACIN OINTMENT PACKET 1 PACKET (17:00)
[2022-03-04] MEDS: MELATONIN 3 MG TABLET PO (21:07)
[2022-03-04 21:42] VITALS: BP 149/66; PULSE 107; RESP 18; TEMP 37.1; O2SAT 97
[2022-03-05] MEDS: LOPERAMIDE HCL 2 MG CAPSULE PO ×2 (02:24→05:05)
[2022-03-05] MEDS: metroNIDAZOLE 500 MG/ISO 100ML 500 MG/100 ML BAG 100 MG IVPB ×4 (05:05→23:52)
[2022-03-05 05:24] VITALS: BP 154/86; PULSE 107; RESP 17; TEMP 36.9; O2SAT 98
[2022-03-05 08:04] LABS: Basophils Percent Auto 0.3 % (0.2-1.2); Eosinophils Absolute Auto 0.1 K/mm3 (0-0.3); Eosinophils Percent Auto 0.8 % (0-4.4); Hematocrit 24.3 % (37.0-47.0); Hemoglobin 7.7 g/dL (12.0-15.0); Immature Granulocyte Absolute 0.26 K/mm3 (0.00-0.031); Immature Granulocyte Percent A 4.1 % (0-0.5); Lymphocytes Absolute Auto 1.73 K/mm3 (0.9-3.2); Mean Corpuscular HGB Conc 31.7 g/dl (32-36); Mean Corpuscular Hemoglobin 29.4 pg (26-34); Mean Corpuscular Volume 92.7 fl (80-100); Mean Platelet Volume 9.6 fl (7.4-10.4); Monocytes Absolute Auto 0.4 K/mm3 (0.1-0.6); Monocytes Percent Auto 6.6 % (2.6-8.5); Neutrophils Absolute Auto 3.9 K/mm3 (1.3-6.7); Neutrophils Percent Auto 61.2 % (45.5-73.1); Platelet Count Result 186 k/mm3 (150-375); Red Blood Count 2.62 M/mm3 (4.2-5.4); Red Cell Distribution Width 14.6 % (11.5-14.5); White Blood Count 6.4 K/mm3 (4.5-10.0)
[2022-03-05] MEDS: PANTOPRAZOLE SODIUM IV 40 MG VIAL IV PUSH (08:20)
[2022-03-05] MEDS: POTASSIUM PHOS/SODIUM PHOS 250 MG TABLET 500 MG PO ×3 (08:20→17:31)
[2022-03-05] MEDS: MESALAMINE 400 MG DELAYED RELEASE CAPSULE 800 MG PO ×3 (08:20→17:31)
[2022-03-05] MEDS: SODIUM BICARBONATE TAB 650 MG TABLET PO ×2 (08:20→17:31)
[2022-03-05 08:38] LABS: Alanine Aminotransferase 9 U/L (6-35); Albumin Level 2.6 g/dL (3.5-5.1); Alkaline Phosphatase 74 U/L (38-126); Anion Gap 14 mmol/L (8-16); Aspartate Amino Transferase 12 U/L (14-36); Bilirubin,Total 0.4 mg/dL (0.2-1.3); Blood Urea Nitrogen 11 mg/dL (7-17); Calcium 6.8 mg/dL (8.4-10.2); Carbon Dioxide 19 mmol/L (22-30); Chloride 109 mmol/L (98-107); Estimated CRCL calculation 136 ml/min; Estimated Glomerular Filt Rate > 60; Glucose 98 mg/dL (65-110); Magnesium 1.4 mg/dL (1.6-2.3); Phosphorus 3.1 mg/dL (2.5-4.5); Potassium 2.8 mmol/L (3.4-5.0); Sodium 142 mmol/L (137-145)
[2022-03-05] MEDS: MAGNESIUM SULF 2 GM/WATER 50ML 2 GM/50 ML BAG IVPB (09:05)
[2022-03-05] MEDS: POTASSIUM CHLORIDE 20 MEQ TABLET 40 MEQ PO ×2 (09:05→14:17)
[2022-03-05] MEDS: MAGNESIUM OXIDE 400 MG TABLET PO (09:30)
[2022-03-05] MEDS: ALPRAZolam (*CRX) 0.5 MG TABLET PO ×2 (11:21→23:52)
--- NOTE | 2022-03-05 12:16 | PCSTNOTE ---
Please refer to the Bedside Swallow Evaluation in the EMR. Please note, silent aspiration cannot be ruled out at bedside.
[2022-03-05] MEDS: KCL 20 MEQ/0.45% NS 1,000 ML 50 ML IV CONT (13:03)
[2022-03-05 13:15] LABS: Hematocrit 25.8 % (37.0-47.0); Hemoglobin 8.3 g/dL (12.0-15.0)
[2022-03-05 13:36] LABS: Anion Gap 11 mmol/L (8-16); Blood Urea Nitrogen 10 mg/dL (7-17); Calcium 7.2 mg/dL (8.4-10.2); Carbon Dioxide 21 mmol/L (22-30); Chloride 107 mmol/L (98-107); Estimated CRCL calculation 136 ml/min; Estimated Glomerular Filt Rate > 60; Glucose 137 mg/dL (65-110); Magnesium 1.9 mg/dL (1.6-2.3); Phosphorus 2.7 mg/dL (2.5-4.5); Potassium 2.7 mmol/L (3.4-5.0); Sodium 139 mmol/L (137-145)
[2022-03-05 14:15] VITALS: BP 153/72; PULSE 106; RESP 21; TEMP 36.8; O2SAT 100
[2022-03-05] MEDS: POTASSIUM CHLORIDE INJ 40 MEQ in SODIUM CHLORIDE 0.9% IV 500 ML 130 MEQ IVPB (14:17)
--- NOTE | 2022-03-05 14:22 | WPDGIPROGNO ---
Progress Note: A&P Assessment and Plan (1) Colitis: Code(s): K52.9 - Noninfective gastroenteritis and colitis, unspecified Status: Acute Assessment and Plan: on treatment again with mesalamine noted by CT scan and previous colonoscopy affecting right colon stool sample negative for infection also on iv antibiotics (2) Blood in stool: Code(s): K92.1 - Melena Status: Acute Assessment and Plan: reported today ? trauma from fecal management device- already removed continue to monitor she has chronic anemia but h/h relatively stable (3) Chronic anemia: Code(s): D64.9 - Anemia, unspecified Status: Acute (4) Diarrhea: Code(s): R19.7 - Diarrhea, unspecified Status: Acute (5) Urinary tract infection: Code(s): N39.0 - Urinary tract infection, site not specified Status: Acute Assessment and Plan: treated (6) Muscular dystrophy, unspecified: Code(s): G71.00 - Muscular dystrophy, unspecified Status: Acute (7) Shock: Code(s): R57.9 - Shock, unspecified Status: Acute Assessment and Plan: resolved Subjective Date/time seen: 03/05/22 14:22 Interval history: this morning had brbpr and clot after fecal tube was removed, no more bleeding or stools since this morning Review of Systems Review of Systems: All systems reviewed & are unremarkable except as noted in HPI and below Exam Narrative: General: Obese, chronically ill-appearing 56-year-old female, comfortable, NARD Neuro: awake, alert and oriented x4, speech clear, no focal neuro deficits noted HEENMT: normocephalic, atraumatic, EOMI, sclerae anicteric Respiratory: clear to auscultation bilaterally, nonlabored breathing Cardio: regular rate, regular rhythm with S1-S2 Abdomen: nondistended, normoactive bowel sounds, soft, nontender to palpation Extremities: no edema, erythema, or tenderness to palpation, DP pulses 2+ bilaterally Skin: no rashes or lesions, warm and dry Psych: appropriate mood and affect, judgment and insight intact Objective Data Vital Signs Vital Signs: Vital Signs - 24 hr 03/04/22 15:03 03/04/22 21:42 03/04/22 20:00 Temperature 99.1 F 98.8 F Pulse Rate 108 H 107 H Respiratory Rate 20 18 Blood Pressure 142/76 H 149/66 H Pulse Oximetry 99 97 Oxygen Delivery Room Air 03/05/22 05:24 Temperature 98.4 F Pulse Rate 107 H Respiratory Rate 17 Blood Pressure 154/86 H Pulse Oximetry 98 Oxygen Delivery Intake/Output Intake/Output: Intake & Output 03/02/22 03/03/22 03/04/22 03/05/22 23:59 23:59 23:59 23:59 Intake Total 2850 2510 2880 2320 Output Total 2550 2350 1775 1000 Balance 183 801 2784 1320 Meds/Results Medications: Active Medications Generic Name Dose Route Start Last Admin Trade Name Freq PRN Reason Stop Dose Admin Enoxaparin Sodium 40 mg 03/01/22 09:00 03/02/22 10:28 Enoxaparin 40 Mg/0.4 Ml Syringe SUB-Q Not Given DAILY BENTLEY Fentanyl Citrate 25 mcg 02/28/22 12:59 03/02/22 10:55 Fentanyl Citrate Inj (*Crx) 100 Mcg/2 Ml Vial IV PUSH 25 mcg Q3H PRN Administration Pain Rated 7-10 Potassium Chloride/Sodium Chloride 1,000 mls @ 50 mls/hr 02/28/22 11:25 03/05/22 13:03 Kcl 20 Meq/0.45% Ns IV CONT 50 mls/hr .Q20H BENTLEY Administration Metronidazole 500 mg in 100 mls @ 100 mls/hr 02/28/22 13:30 03/05/22 13:02 Flagyl 500 Mg/Iso Soln 100 Ml IVPB 100 mls/hr Q6HR BENTLEY Administration Ceftriaxone Sodium/Dextrose 1 gm in 50 mls @ 100 mls/hr 03/02/22 10:05 03/05/22 08:20 Rocephin 1 Gm/D5w 50 Ml IVPB 100 mls/hr DAILY BENTLEY Administration Potassium Chloride 40 meq/ 520 mls @ 130 mls/hr 03/05/22 13:39 Sodium Chloride IVPB 03/05/22 17:38 ONCE ONE Loperamide HCl 2 mg 03/04/22 10:03 03/05/22 05:05 Loperamide Hcl 2 Mg Capsule PO 2 mg PRN PRN Administration Diarrhea Magnesium Oxide 400 mg 03/05/22 09:00 03/05/22 09:30 Magnesi
--- NOTE | 2022-03-05 18:08 | P.PNIM_ITS ---
Progress Note: A&P Assessment and Plan (1) Sepsis: Code(s): A41.9 - Sepsis, unspecified organism Status: Acute Assessment and Plan: Septic shock with refractory hypotension needing vasopressor * likely secondary to colitis and UTI * blood cultures pending * salmonella/shigella pending, additional stool cultures negative * no longer requiring pressors. Remove femoral line * monitor intake and output, vital signs, labs * continue IV ceftriaxone and Flagyl 03/05/2022 interval history; patient with history of muscular dystryphy with septic shock 2/2 UTI and Colitis, patient is seen by GI suspect colitis possibly due to infection or inflammation, however stool is negative for any infection, this morning nurse notice rectal bleeding along fecal management system, seen by GI suspect most likely due to trauma from FMS, initially there was drop in HH but now it remains stable, will continur to monitor. patient deneis any abdominal pain or recatl pain. (2) Colitis: Code(s): K52.9 - Noninfective gastroenteritis and colitis, unspecified Status: Acute Assessment and Plan: most likely infectious * continue ceftriaxone and metronidazole * appreciate GI consultation * C diff negative * additional stool cultures pending * history of right-sided colitis, concerning for IBD. Continue mesalamine per GI recommendations. Pt refused on 03/03, stating she is not tolerant to this medication due to increased weakness. Today is agreeable to proceed. * continue with gentle IV fluids via peripheral IV as diarrhea persists (3) UTI (urinary tract infection): Code(s): N39.0 - Urinary tract infection, site not specified Status: Acute Assessment and Plan: urine culture with growth of 10-49k E. coli * continue ceftriaxone based on sensitivity report (4) Shock: Code(s): R57.9 - Shock, unspecified Status: Acute Assessment and Plan: resolved. [place] to be secondary to sepsis * patient has been adequately rehydrated. Received Levophed and albumin in ICU * procalcitonin 2.5 * TSH normal * cortisol 18.6 * lactic acid normal (5) WEI (acute kidney injury): Code(s): N17.9 - Acute kidney failure, unspecified Status: Acute Assessment and Plan: most likely secondary to dehydration and sepsis * CT scan did not show any hydronephrosis * CK normal * renal function appears to be a baseline (6) Hypokalemia: Code(s): E87.6 - Hypokalemia Status: Acute Assessment and Plan: potassium was 3.3 today * supplemental KCL * monitor BMP (7) Hypothermia: Code(s): T68.XXXA - Hypothermia, initial encounter Status: Acute Assessment and Plan: Resolved. likely secondary to sepsis and patient also has muscle dystrophy which has been replaced by obesity and fat * Temp improved with warming blanket (8) Chest pain: Code(s): R07.9 - Chest pain, unspecified Status: Acute Assessment and Plan: resolved. * EKG reviewed * troponin x3 negative * lipase normal * continue protonix for possible GERD or dyspepsia (9) Leukopenia: Code(s): D72.819 - Decreased white blood cell count, unspecified Status: Acute Assessment and Plan: Improving. white blood cell count is 4.1 todayt * bandemia improving * COVID, mono, influenza negative * likely related to sepsis/acute infectious process * repeat CBC with differential tomorrow
--- NOTE | 2022-03-05 18:08 | PM.IMPN ---
Progress Note: A&P Assessment and Plan (1) Sepsis: Code(s): A41.9 - Sepsis, unspecified organism Status: Acute Assessment and Plan: Septic shock with refractory hypotension needing vasopressor likely secondary to colitis and UTI blood cultures pending salmonella/shigella pending, additional stool cultures negative no longer requiring pressors. Remove femoral line monitor intake and output, vital signs, labs continue IV ceftriaxone and Flagyl 03/05/2022 interval history; patient with history of muscular dystryphy with septic shock 2/2 UTI and Colitis, patient is seen by GI suspect colitis possibly due to infection or inflammation, however stool is negative for any infection, this morning nurse notice rectal bleeding along fecal management system, seen by GI suspect most likely due to trauma from FMS, initially there was drop in HH but now it remains stable, will continur to monitor. patient deneis any abdominal pain or recatl pain. (2) Colitis: Code(s): K52.9 - Noninfective gastroenteritis and colitis, unspecified Status: Acute Assessment and Plan: most likely infectious continue ceftriaxone and metronidazole appreciate GI consultation C diff negative additional stool cultures pending history of right-sided colitis, concerning for IBD. Continue mesalamine per GI recommendations. Pt refused on 03/03, stating she is not tolerant to this medication due to increased weakness. Today is agreeable to proceed. continue with gentle IV fluids via peripheral IV as diarrhea persists (3) UTI (urinary tract infection): Code(s): N39.0 - Urinary tract infection, site not specified Status: Acute Assessment and Plan: urine culture with growth of 10-49k E. coli continue ceftriaxone based on sensitivity report (4) Shock: Code(s): R57.9 - Shock, unspecified Status: Acute Assessment and Plan: resolved. [place] to be secondary to sepsis patient has been adequately rehydrated. Received Levophed and albumin in ICU procalcitonin 2.5 TSH normal cortisol 18.6 lactic acid normal (5) WEI (acute kidney injury): Code(s): N17.9 - Acute kidney failure, unspecified Status: Acute Assessment and Plan: most likely secondary to dehydration and sepsis CT scan did not show any hydronephrosis CK normal renal function appears to be a baseline (6) Hypokalemia: Code(s): E87.6 - Hypokalemia Status: Acute Assessment and Plan: potassium was 3.3 today supplemental KCL monitor BMP (7) Hypothermia: Code(s): T68.XXXA - Hypothermia, initial encounter Status: Acute Assessment and Plan: Resolved. likely secondary to sepsis and patient also has muscle dystrophy which has been replaced by obesity and fat Temp improved with warming blanket (8) Chest pain: Code(s): R07.9 - Chest pain, unspecified Status: Acute Assessment and Plan: resolved. EKG reviewed troponin x3 negative lipase normal continue protonix for possible GERD or dyspepsia (9) Leukopenia: Code(s): D72.819 - Decreased white blood cell count, unspecified Status: Acute Assessment and Plan: Improving. white blood cell count is 4.1 todayt bandemia improving COVID, mono, influenza negative likely related to sepsis/acute infectious process repeat CBC with differential tomorrow Plan Phos 1.7 today. Discontinue fibercon. Begin sodium phosphate TID. Monitor phos levels Subjective Date/time seen: 03/05/22 18:08 Interval history: Marcia Mehta is a 56-year-old female with a history of? muscular dystrophy, hypertension, anxiety, depression who is seen in follow-up for septic shock secondary to UTI and colitis.? she continues to complain of feeling short of breath.? She also complains of restless legs.? states she was not able to sleep last nig
[2022-03-05 19:21] LABS: Hematocrit 26.1 % (37.0-47.0); Hemoglobin 8.2 g/dL (12.0-15.0)
[2022-03-05] MEDS: MELATONIN 3 MG TABLET PO (20:59)
[2022-03-05] MEDS: BACLOFEN 10 MG TABLET PO (20:59)
[2022-03-05 21:05] VITALS: BP 154/77; PULSE 110; RESP 18; TEMP 36.8; O2SAT 100
[2022-03-06 00:49] LABS: Hematocrit 23.2 % (37.0-47.0); Hemoglobin 7.4 g/dL (12.0-15.0)
[2022-03-06 05:24] VITALS: BP 129/54; PULSE 101; RESP 18; TEMP 36.9; O2SAT 98
[2022-03-06] MEDS: metroNIDAZOLE 500 MG/ISO 100ML 500 MG/100 ML BAG 100 MG IVPB ×4 (05:28→23:11)
[2022-03-06 05:48] LABS: Hematocrit 23.3 % (37.0-47.0); Hemoglobin 7.3 g/dL (12.0-15.0)
[2022-03-06 06:01] LABS: Magnesium 1.8 mg/dL (1.6-2.3)
[2022-03-06] MEDS: PANTOPRAZOLE SODIUM IV 40 MG VIAL IV PUSH (08:46)
[2022-03-06] MEDS: MAGNESIUM OXIDE 400 MG TABLET PO (08:47)
[2022-03-06] MEDS: SODIUM BICARBONATE TAB 650 MG TABLET PO ×2 (08:47→17:40)
[2022-03-06 08:48] VITALS: RESP 18; O2SAT 98
[2022-03-06] MEDS: MESALAMINE 400 MG DELAYED RELEASE CAPSULE 800 MG PO ×3 (08:48→17:40)
[2022-03-06] MEDS: POTASSIUM PHOS/SODIUM PHOS 250 MG TABLET 500 MG PO ×3 (08:48→17:40)
[2022-03-06] MEDS: KCL 20 MEQ/0.45% NS 1,000 ML 50 ML IV CONT (10:04)
[2022-03-06 12:00] VITALS: BP 152/72; PULSE 102; RESP 20; TEMP 36.6; O2SAT 99
--- NOTE | 2022-03-06 12:39 | WPDGIPROGNO ---
Progress Note: A&P Assessment and Plan (1) Colitis: Code(s): K52.9 - Noninfective gastroenteritis and colitis, unspecified Status: Acute Assessment and Plan: on treatment again with mesalamine noted by CT scan and previous colonoscopy affecting right colon stool sample negative for infection also on iv antibiotics RN reports less diarrhea (2) Blood in stool: Code(s): K92.1 - Melena Status: Acute Assessment and Plan: chronic anemia and now h/h low but stable, improved and wonder if could have been trauma from fecal management device- already removed continue to monitor (3) Chronic anemia: Code(s): D64.9 - Anemia, unspecified Status: Acute (4) Diarrhea: Code(s): R19.7 - Diarrhea, unspecified Status: Acute (5) Urinary tract infection: Code(s): N39.0 - Urinary tract infection, site not specified Status: Acute Assessment and Plan: treated (6) Muscular dystrophy, unspecified: Code(s): G71.00 - Muscular dystrophy, unspecified Status: Acute (7) Shock: Code(s): R57.9 - Shock, unspecified Status: Acute Assessment and Plan: resolved Subjective Date/time seen: 03/06/22 12:39 Interval history: RN reports less diarrhea, also minimal amount of blood. Patient is comfortable laying in bed Review of Systems Review of Systems: All systems reviewed & are unremarkable except as noted in HPI and below Exam Const: General: comfortable and no acute distress Nutritional Appearance: obese Other: chronically ill appearing HENMT: General nose exam: Normal nares present Eyes: General: appearance normal, both eyes and all related structures Neck: Neck: no JVD Resp: Auscultation: clear to auscultation bilaterally Cardio: Rate: regular rate Rhythm: regular rhythm GI: Inspection: non-distended GI Palp: Yes Soft to palpation and No Tenderness to palpation present (GI) Auscultation: normal bowel sounds Skin: General skin exam: normal color Neuro: Speech: normal speech Extrem: General: normal to inspection Psych: Mental Status: mental status grossly normal Objective Data Vital Signs Vital Signs: Vital Signs - 24 hr 03/05/22 14:15 03/05/22 21:05 03/05/22 21:00 Temperature 98.2 F 98.2 F Pulse Rate 106 H 110 H Respiratory Rate 21 H 18 Blood Pressure 153/72 H 154/77 H Pulse Oximetry 100 100 Oxygen Delivery Room Air 03/06/22 05:24 03/06/22 08:48 03/06/22 12:00 Temperature 98.4 F 97.8 F Pulse Rate 101 H 102 H Respiratory Rate 18 18 20 Blood Pressure 129/54 L 152/72 H Pulse Oximetry 98 98 99 Oxygen Delivery Room Air Intake/Output Intake/Output: Intake & Output 03/03/22 03/04/22 03/05/22 03/06/22 23:59 23:59 23:59 23:59 Intake Total 2510 2880 3790 1620 Output Total 2350 1775 2352 700 Balance 160 1105 1438 920 Meds/Results Medications: Active Medications Generic Name Dose Route Start Last Admin Trade Name Freq PRN Reason Stop Dose Admin Alprazolam 0.5 mg 03/06/22 12:07 Alprazolam (*Crx) 0.5 Mg Tablet PO TID PRN Anxiety Baclofen 10 mg 03/05/22 21:00 03/05/22 20:59 Baclofen 10 Mg Tablet PO 10 mg HS BENTLEY Administration Enoxaparin Sodium 40 mg 03/01/22 09:00 03/02/22 10:28 Enoxaparin 40 Mg/0.4 Ml Syringe SUB-Q Not Given DAILY BENTLEY Fentanyl Citrate 25 mcg 02/28/22 12:59 03/02/22 10:55 Fentanyl Citrate Inj (*Crx) 100 Mcg/2 Ml Vial IV PUSH 25 mcg Q3H PRN Administration Pain Rated 7-10 Potassium Chloride/Sodium Chloride 1,000 mls @ 50 mls/hr 02/28/22 11:25 03/06/22 11:51 Kcl 20 Meq/0.45% Ns IV CONT 03/07/22 03:59 0 mls/hr .Q20H BENTLEY Infusion Metronidazole 500 mg in 100 mls @ 100 mls/hr 02/28/22 13:30 03/06/22 11:52 Flagyl 500 Mg/Iso Soln 100 Ml IVPB 100 mls/hr Q6HR BENTLEY Administration Ceftriaxone Sodium/Dextrose 1 gm in 50 mls @ 100 mls/hr 03/02/22 10:05 03/06/22 09:11 Rocephin 1 Gm/
[2022-03-06 12:48] LABS: Hematocrit 24.8 % (37.0-47.0)
[2022-03-06] MEDS: LOPERAMIDE HCL 2 MG CAPSULE PO (12:53)
[2022-03-06 12:59] LABS: Albumin Level 3.1 g/dL (3.5-5.1); Anion Gap 12 mmol/L (8-16); Blood Urea Nitrogen 8 mg/dL (7-17); Calcium 7.3 mg/dL (8.4-10.2); Carbon Dioxide 23 mmol/L (22-30); Chloride 107 mmol/L (98-107); Estimated CRCL calculation 165 ml/min; Estimated Glomerular Filt Rate > 60; Glucose 97 mg/dL (65-110); Phosphorus 3.5 mg/dL (2.5-4.5); Potassium 4.4 mmol/L (3.4-5.0); Sodium 142 mmol/L (137-145)
--- NOTE | 2022-03-06 13:17 | P.PNIM_ITS ---
Progress Note: A&P Assessment and Plan (1) Sepsis: Code(s): A41.9 - Sepsis, unspecified organism Status: Acute Assessment and Plan: Septic shock with refractory hypotension needing vasopressor * likely secondary to colitis and UTI * blood cultures pending * salmonella/shigella pending, additional stool cultures negative * no longer requiring pressors. Remove femoral line * monitor intake and output, vital signs, labs * continue IV ceftriaxone and Flagyl 03/06/2022 interval history; patient with history of muscular dystryphy with septic shock 2/2 UTI and Colitis, patient is seen by GI suspect colitis possibly due to infection or inflammation, however stool is negative for any infection, patient may need colonoscopy to further evaluate, on morning on 03/05 nurse notice rectal bleeding along fecal management system, seen by GI suspect most likely due to trauma from FMS, initially there was drop in HH but now it remains stable, patient rectal bleeding has improved, will continue to monitor. patient denies any abdominal pain or recatl pain. (2) Colitis: Code(s): K52.9 - Noninfective gastroenteritis and colitis, unspecified Status: Acute Assessment and Plan: most likely infectious * continue ceftriaxone and metronidazole * appreciate GI consultation * C diff negative * additional stool cultures pending * history of right-sided colitis, concerning for IBD. Continue mesalamine per GI recommendations. Pt refused on 03/03, stating she is not tolerant to this medication due to increased weakness. Today is agreeable to proceed. * continue with gentle IV fluids via peripheral IV as diarrhea persists (3) UTI (urinary tract infection): Code(s): N39.0 - Urinary tract infection, site not specified Status: Acute Assessment and Plan: urine culture with growth of 10-49k E. coli * continue ceftriaxone based on sensitivity report (4) Shock: Code(s): R57.9 - Shock, unspecified Status: Acute Assessment and Plan: resolved. [place] to be secondary to sepsis * patient has been adequately rehydrated. Received Levophed and albumin in ICU * procalcitonin 2.5 * TSH normal * cortisol 18.6 * lactic acid normal (5) WEI (acute kidney injury): Code(s): N17.9 - Acute kidney failure, unspecified Status: Acute Assessment and Plan: most likely secondary to dehydration and sepsis * CT scan did not show any hydronephrosis * CK normal * renal function appears to be a baseline (6) Hypokalemia: Code(s): E87.6 - Hypokalemia Status: Acute Assessment and Plan: potassium was 3.3 today * supplemental KCL * monitor BMP (7) Hypothermia: Code(s): T68.XXXA - Hypothermia, initial encounter Status: Acute Assessment and Plan: Resolved. likely secondary to sepsis and patient also has muscle dystrophy which has been replaced by obesity and fat * Temp improved with warming blanket (8) Chest pain: Code(s): R07.9 - Chest pain, unspecified Status: Acute Assessment and Plan: resolved. * EKG reviewed * troponin x3 negative * lipase normal * continue protonix for possible GERD or dyspepsia (9) Leukopenia: Code(s): D72.819 - Decreased white blood cell count, unspecified Status: Acute Assessment and Plan: Improving. white blood cell count is 4.1 todayt * bandemia improving * COVID, mono, influenza negative * likely
--- NOTE | 2022-03-06 13:17 | PM.IMPN ---
Progress Note: A&P Assessment and Plan (1) Sepsis: Code(s): A41.9 - Sepsis, unspecified organism Status: Acute Assessment and Plan: Septic shock with refractory hypotension needing vasopressor likely secondary to colitis and UTI blood cultures pending salmonella/shigella pending, additional stool cultures negative no longer requiring pressors. Remove femoral line monitor intake and output, vital signs, labs continue IV ceftriaxone and Flagyl 03/06/2022 interval history; patient with history of muscular dystryphy with septic shock 2/2 UTI and Colitis, patient is seen by GI suspect colitis possibly due to infection or inflammation, however stool is negative for any infection, patient may need colonoscopy to further evaluate, on morning on 03/05 nurse notice rectal bleeding along fecal management system, seen by GI suspect most likely due to trauma from FMS, initially there was drop in HH but now it remains stable, patient rectal bleeding has improved, will continue to monitor. patient denies any abdominal pain or recatl pain. (2) Colitis: Code(s): K52.9 - Noninfective gastroenteritis and colitis, unspecified Status: Acute Assessment and Plan: most likely infectious continue ceftriaxone and metronidazole appreciate GI consultation C diff negative additional stool cultures pending history of right-sided colitis, concerning for IBD. Continue mesalamine per GI recommendations. Pt refused on 03/03, stating she is not tolerant to this medication due to increased weakness. Today is agreeable to proceed. continue with gentle IV fluids via peripheral IV as diarrhea persists (3) UTI (urinary tract infection): Code(s): N39.0 - Urinary tract infection, site not specified Status: Acute Assessment and Plan: urine culture with growth of 10-49k E. coli continue ceftriaxone based on sensitivity report (4) Shock: Code(s): R57.9 - Shock, unspecified Status: Acute Assessment and Plan: resolved. [place] to be secondary to sepsis patient has been adequately rehydrated. Received Levophed and albumin in ICU procalcitonin 2.5 TSH normal cortisol 18.6 lactic acid normal (5) WEI (acute kidney injury): Code(s): N17.9 - Acute kidney failure, unspecified Status: Acute Assessment and Plan: most likely secondary to dehydration and sepsis CT scan did not show any hydronephrosis CK normal renal function appears to be a baseline (6) Hypokalemia: Code(s): E87.6 - Hypokalemia Status: Acute Assessment and Plan: potassium was 3.3 today supplemental KCL monitor BMP (7) Hypothermia: Code(s): T68.XXXA - Hypothermia, initial encounter Status: Acute Assessment and Plan: Resolved. likely secondary to sepsis and patient also has muscle dystrophy which has been replaced by obesity and fat Temp improved with warming blanket (8) Chest pain: Code(s): R07.9 - Chest pain, unspecified Status: Acute Assessment and Plan: resolved. EKG reviewed troponin x3 negative lipase normal continue protonix for possible GERD or dyspepsia (9) Leukopenia: Code(s): D72.819 - Decreased white blood cell count, unspecified Status: Acute Assessment and Plan: Improving. white blood cell count is 4.1 todayt bandemia improving COVID, mono, influenza negative likely related to sepsis/acute infectious process repeat CBC with differential tomorrow Plan Phos 1.7 today. Discontinue fibercon. Begin sodium phosphate TID. Monitor phos levels Subjective Date/time seen: 03/06/22 13:17 03/06/2022 interval history; patient with history of muscular dystryphy with septic shock 2/2 UTI and Colitis, patient is seen by GI suspect colitis possibly due to infection or inflammation, however stool is negative for any infection, patient
[2022-03-06] MEDS: ALPRAZolam (*CRX) 0.5 MG TABLET PO ×2 (14:46→22:38)
[2022-03-06 16:00] VITALS: BP 148/77; PULSE 108; RESP 18; TEMP 36.8; O2SAT 99
[2022-03-06] MEDS: BACLOFEN 10 MG TABLET PO (20:22)
[2022-03-06] MEDS: MELATONIN 3 MG TABLET PO (20:22)
[2022-03-06 20:41] VITALS: BP 121/49; PULSE 98; RESP 20; TEMP 36.8; O2SAT 100
[2022-03-06] MEDS: ACETAMINOPHEN 325 MG TABLET 650 MG PO (23:11)
[2022-03-07] VITALS (10 sets, daily range): BP systolic 119–137; BP diastolic 63–76; PULSE 81–105; RESP 18–20; TEMP 36.1–36.9; O2SAT 95–99
[2022-03-07] MEDS: metroNIDAZOLE 500 MG/ISO 100ML 500 MG/100 ML BAG 100 MG IVPB ×4 (05:09→23:00)
[2022-03-07 05:31] LABS: Mean Corpuscular HGB Conc 31.4 g/dl (32-36); Mean Corpuscular Volume 95.5 fl (80-100); Mean Platelet Volume 9.8 fl (7.4-10.4); Platelet Count Result 203 k/mm3 (150-375); Red Cell Distribution Width 14.6 % (11.5-14.5); White Blood Count 7.5 K/mm3 (4.5-10.0)
[2022-03-07 05:35] LABS: Hemoglobin 6.6 g/dL (12.0-15.0)
[2022-03-07 05:57] LABS: Albumin Level 2.4 g/dL (3.5-5.1); Anion Gap 11 mmol/L (8-16); Blood Urea Nitrogen 8 mg/dL (7-17); Calcium 7.1 mg/dL (8.4-10.2); Carbon Dioxide 23 mmol/L (22-30); Chloride 108 mmol/L (98-107); Estimated CRCL calculation 118 ml/min; Estimated Glomerular Filt Rate > 60; Glucose 102 mg/dL (65-110); Magnesium 1.5 mg/dL (1.6-2.3); Potassium 3.9 mmol/L (3.4-5.0); Sodium 142 mmol/L (137-145)
[2022-03-07 08:00] LABS: ANCA Screen Negative (Negative); Myeloperoxidase Ab <1.0 AI (<1.0); Proteinase-3 Ab <1.0 AI (<1.0); S cerevisiae Ab (IgA) 9.9 U (<=20.0); S cerevisiae Ab (IgG) 7.6 U (<=20.0)
[2022-03-07] MEDS: MAGNESIUM SULF 2 GM/WATER 50ML 2 GM/50 ML BAG IVPB (08:30)
[2022-03-07] MEDS: POTASSIUM PHOS/SODIUM PHOS 250 MG TABLET 500 MG PO ×3 (08:31→16:59)
[2022-03-07] MEDS: MESALAMINE 400 MG DELAYED RELEASE CAPSULE 800 MG PO ×3 (08:31→17:00)
[2022-03-07] MEDS: SODIUM BICARBONATE TAB 650 MG TABLET PO ×2 (08:31→17:00)
[2022-03-07] MEDS: LOPERAMIDE HCL 2 MG CAPSULE PO ×2 (08:31→20:45)
[2022-03-07] MEDS: PANTOPRAZOLE SODIUM IV 40 MG VIAL IV PUSH (08:31)
[2022-03-07] MEDS: MAGNESIUM OXIDE 400 MG TABLET PO (08:31)
[2022-03-07] MEDS: SODIUM CHLORIDE 0.9% IV 250 ML 30 ML IV CONT (09:04)
--- NOTE | 2022-03-07 09:26 | WPDGIPROGNO ---
Progress Note: A&P Assessment and Plan (1) Colitis: Code(s): K52.9 - Noninfective gastroenteritis and colitis, unspecified Status: Acute Assessment and Plan: on treatment again with mesalamine noted by CT scan and previous colonoscopy affecting right colon stool sample negative for infection, no c diff also on iv antibiotics because UTI less diarrhea (2) Blood in stool: Code(s): K92.1 - Melena Status: Acute Assessment and Plan: chronic anemia with hb down to 6.6, no more rectal bleeding per patient and wonder if recent episode could have been trauma from fecal management device- already removed continue to monitor, probably will need one unit prbc Dr Flores returns tomorrow (3) Chronic anemia: Code(s): D64.9 - Anemia, unspecified Status: Acute Assessment and Plan: monitor for more signs of bleeding (4) Diarrhea: Code(s): R19.7 - Diarrhea, unspecified Status: Acute Assessment and Plan: medical management stool sample negative for infection (5) Urinary tract infection: Code(s): N39.0 - Urinary tract infection, site not specified Status: Acute Assessment and Plan: on treatment (6) Muscular dystrophy, unspecified: Code(s): G71.00 - Muscular dystrophy, unspecified Status: Acute (7) Shock: Code(s): R57.9 - Shock, unspecified Status: Acute Assessment and Plan: resolved Subjective Date/time seen: 03/07/22 09:26 Interval history: she says that diarrhea slowing down actually able to sleep last night, no more report of obvious rectal bleeding but noted that hb down to 6.6. She is comfortable Review of Systems Review of Systems: All systems reviewed & are unremarkable except as noted in HPI and below Exam Const: General: comfortable and no acute distress Nutritional Appearance: obese Other: chronically ill appearing HENMT: General nose exam: Normal nares present Eyes: General: appearance normal, both eyes and all related structures Neck: Neck: no JVD Resp: Auscultation: clear to auscultation bilaterally Cardio: Rate: regular rate Rhythm: regular rhythm GI: Inspection: non-distended GI Palp: Yes Soft to palpation and No Tenderness to palpation present (GI) Auscultation: normal bowel sounds Skin: General skin exam: normal color Neuro: Speech: normal speech Extrem: General: normal to inspection Psych: Mental Status: mental status grossly normal Objective Data Vital Signs Vital Signs: Vital Signs - 24 hr 03/06/22 12:00 03/06/22 16:00 03/06/22 20:41 Temperature 97.8 F 98.2 F 98.2 F Pulse Rate 102 H 108 H 98 Respiratory Rate 20 18 20 Blood Pressure 152/72 H 148/77 H 121/49 L Pulse Oximetry 99 99 100 03/07/22 04:37 Temperature 98.4 F Pulse Rate 89 Respiratory Rate 18 Blood Pressure 130/63 Pulse Oximetry 97 Intake/Output Intake/Output: Intake & Output 03/04/22 03/05/22 03/06/22 03/07/22 23:59 23:59 23:59 23:59 Intake Total 2880 3790 2630 1182 Output Total 1775 2352 2300 1025 Balance 1105 1438 330 157 Meds/Results Medications: Active Medications Generic Name Dose Route Start Last Admin Trade Name Freq PRN Reason Stop Dose Admin Acetaminophen 650 mg 03/06/22 22:50 03/06/22 23:11 Acetaminophen 325 Mg Tablet PO 650 mg Q6H PRN Administration Mild Pain (1-3) or Fever Alprazolam 0.5 mg 03/06/22 12:07 03/06/22 22:38 Alprazolam (*Crx) 0.5 Mg Tablet PO 0.5 mg TID PRN Administration Anxiety Baclofen 10 mg 03/05/22 21:00 03/06/22 20:22 Baclofen 10 Mg Tablet PO 10 mg HS [place] Administration Enoxaparin Sodium 40 mg 03/01/22 09:00 03/02/22 10:28 Enoxaparin 40 Mg/0.4 Ml Syringe SUB-Q Not Given DAILY [facility] Fentanyl Citrate 25 mcg 02/28/22 12:59 03/02/22 10:55 Fentanyl Citrate Inj (*Crx) 100 Mcg/2 Ml Vial IV PUSH 25 mcg Q3H PRN Administration Pain Rated 7-10 Metronidazole 500 mg
--- NOTE | 2022-03-07 11:09 | P.PNIM_ITS ---
Progress Note: A&P Assessment and Plan (1) Sepsis: Code(s): A41.9 - Sepsis, unspecified organism Status: Acute Assessment and Plan: Septic shock with refractory hypotension needing vasopressor * likely secondary to colitis and UTI * blood cultures pending * salmonella/shigella pending, additional stool cultures negative * no longer requiring pressors. Remove femoral line * monitor intake and output, vital signs, labs * continue IV ceftriaxone and Flagyl 03/07/2022 interval history; today patient hgh has dropped to 6.6 from 8 on 03/06, there was kelvin rectal bleeding on 03/05 since then bleeding is minimal, will give 1 unit PRBC patient denies any abdominal pain, or N/V, still having frequent BM and will be seen by GI, will monitor, patient with history of muscular dystryphy with septic shock 2/2 UTI and Colitis, patient is seen by GI suspect colitis possibly due to infection or inflammation, however stool is negative for any infection, patient may need colonoscopy to further evaluate, on morning on 03/05 nurse notice rectal bleeding along fecal management system, seen by GI suspect most likely due to trauma from FMS, initially there was drop in HH but now it remains stable, patient rectal bleeding has improved, will continue to monitor. patient denies any abdominal pain or rectal pain. (2) Colitis: Code(s): K52.9 - Noninfective gastroenteritis and colitis, unspecified Status: Acute Assessment and Plan: most likely infectious * continue ceftriaxone and metronidazole * appreciate GI consultation * C diff negative * additional stool cultures pending * history of right-sided colitis, concerning for IBD. Continue mesalamine per GI recommendations. Pt refused on 03/03, stating she is not tolerant to this medication due to increased weakness. Today is agreeable to proceed. * continue with gentle IV fluids via peripheral IV as diarrhea persists (3) UTI (urinary tract infection): Code(s): N39.0 - Urinary tract infection, site not specified Status: Acute Assessment and Plan: urine culture with growth of 10-49k E. coli * continue ceftriaxone based on sensitivity report (4) Shock: Code(s): R57.9 - Shock, unspecified Status: Acute Assessment and Plan: resolved. [place] to be secondary to sepsis * patient has been adequately rehydrated. Received Levophed and albumin in ICU * procalcitonin 2.5 * TSH normal * cortisol 18.6 * lactic acid normal (5) WEI (acute kidney injury): Code(s): N17.9 - Acute kidney failure, unspecified Status: Acute Assessment and Plan: most likely secondary to dehydration and sepsis * CT scan did not show any hydronephrosis * CK normal * renal function appears to be a baseline (6) Hypokalemia: Code(s): E87.6 - Hypokalemia Status: Acute Assessment and Plan: potassium was 3.3 today * supplemental KCL * monitor BMP (7) Hypothermia: Code(s): T68.XXXA - Hypothermia, initial encounter Status: Acute Assessment and Plan: Resolved. likely secondary to sepsis and patient also has muscle dystrophy which has been replaced by obesity and fat * Temp improved with warming blanket (8) Chest pain: Code(s): R07.9 - Chest pain, unspecified Status: Acute Assessment and Plan: resolved. * EKG reviewed * troponin x3 negative * lipase normal * continue protonix for possible GERD or dyspepsia (9) Leukopenia:
--- NOTE | 2022-03-07 11:09 | PM.IMPN ---
Progress Note: A&P Assessment and Plan (1) Sepsis: Code(s): A41.9 - Sepsis, unspecified organism Status: Acute Assessment and Plan: Septic shock with refractory hypotension needing vasopressor likely secondary to colitis and UTI blood cultures pending salmonella/shigella pending, additional stool cultures negative no longer requiring pressors. Remove femoral line monitor intake and output, vital signs, labs continue IV ceftriaxone and Flagyl 03/07/2022 interval history; today patient hgh has dropped to 6.6 from 8 on 03/06, there was kelvin rectal bleeding on 03/05 since then bleeding is minimal, will give 1 unit PRBC patient denies any abdominal pain, or N/V, still having frequent BM and will be seen by GI, will monitor, patient with history of muscular dystryphy with septic shock 2/2 UTI and Colitis, patient is seen by GI suspect colitis possibly due to infection or inflammation, however stool is negative for any infection, patient may need colonoscopy to further evaluate, on morning on 03/05 nurse notice rectal bleeding along fecal management system, seen by GI suspect most likely due to trauma from FMS, initially there was drop in HH but now it remains stable, patient rectal bleeding has improved, will continue to monitor. patient denies any abdominal pain or rectal pain. (2) Colitis: Code(s): K52.9 - Noninfective gastroenteritis and colitis, unspecified Status: Acute Assessment and Plan: most likely infectious continue ceftriaxone and metronidazole appreciate GI consultation C diff negative additional stool cultures pending history of right-sided colitis, concerning for IBD. Continue mesalamine per GI recommendations. Pt refused on 03/03, stating she is not tolerant to this medication due to increased weakness. Today is agreeable to proceed. continue with gentle IV fluids via peripheral IV as diarrhea persists (3) UTI (urinary tract infection): Code(s): N39.0 - Urinary tract infection, site not specified Status: Acute Assessment and Plan: urine culture with growth of 10-49k E. coli continue ceftriaxone based on sensitivity report (4) Shock: Code(s): R57.9 - Shock, unspecified Status: Acute Assessment and Plan: resolved. [place] to be secondary to sepsis patient has been adequately rehydrated. Received Levophed and albumin in ICU procalcitonin 2.5 TSH normal cortisol 18.6 lactic acid normal (5) WEI (acute kidney injury): Code(s): N17.9 - Acute kidney failure, unspecified Status: Acute Assessment and Plan: most likely secondary to dehydration and sepsis CT scan did not show any hydronephrosis CK normal renal function appears to be a baseline (6) Hypokalemia: Code(s): E87.6 - Hypokalemia Status: Acute Assessment and Plan: potassium was 3.3 today supplemental KCL monitor BMP (7) Hypothermia: Code(s): T68.XXXA - Hypothermia, initial encounter Status: Acute Assessment and Plan: Resolved. likely secondary to sepsis and patient also has muscle dystrophy which has been replaced by obesity and fat Temp improved with warming blanket (8) Chest pain: Code(s): R07.9 - Chest pain, unspecified Status: Acute Assessment and Plan: resolved. EKG reviewed troponin x3 negative lipase normal continue protonix for possible GERD or dyspepsia (9) Leukopenia: Code(s): D72.819 - Decreased white blood cell count, unspecified Status: Acute Assessment and Plan: Improving. white blood cell count is 4.1 todayt bandemia improving COVID, mono, influenza negative likely related to sepsis/acute infectious process repeat CBC with differential tomorrow Plan Phos 1.7 today. Discontinue fibercon. Begin sodium phosphate TID. Monitor phos levels Subjective Date/time seen:
[2022-03-07] MEDS: POTASSIUM CHLORIDE INJ 20 MEQ in SODIUM CHLORIDE 0.45% 1,000 ML 50 MEQ IV CONT (14:03)
[2022-03-07] MEDS: MELATONIN 3 MG TABLET PO (20:44)
[2022-03-07] MEDS: BACLOFEN 10 MG TABLET PO (20:44)
[2022-03-08] MEDS: metroNIDAZOLE 500 MG/ISO 100ML 500 MG/100 ML BAG 100 MG IVPB ×3 (05:33→20:28)
[2022-03-08 06:00] VITALS: BP 130/67; PULSE 73; RESP 18; TEMP 36.7; O2SAT 98
[2022-03-08 06:13] LABS: Hemoglobin 8.2 g/dL (12.0-15.0); Mean Corpuscular HGB Conc 31.5 g/dl (32-36); Mean Corpuscular Hemoglobin 29.4 pg (26-34); Mean Corpuscular Volume 93.2 fl (80-100); Mean Platelet Volume 9.1 fl (7.4-10.4); Platelet Count Result 253 k/mm3 (150-375); Red Blood Count 2.79 M/mm3 (4.2-5.4); Red Cell Distribution Width 15.6 % (11.5-14.5); White Blood Count 9.3 K/mm3 (4.5-10.0)
[2022-03-08 06:26] LABS: Potassium 3.6 mmol/L (3.4-5.0)
[2022-03-08 06:28] LABS: Albumin Level 2.5 g/dL (3.5-5.1); Anion Gap 7 mmol/L (8-16); Blood Urea Nitrogen 6 mg/dL (7-17); Calcium 7.3 mg/dL (8.4-10.2); Carbon Dioxide 24 mmol/L (22-30); Chloride 110 mmol/L (98-107); Estimated CRCL calculation 138 ml/min; Estimated Glomerular Filt Rate > 60; Glucose 97 mg/dL (65-110); Phosphorus 3.9 mg/dL (2.5-4.5); Sodium 141 mmol/L (137-145)
[2022-03-08] MEDS: MESALAMINE 400 MG DELAYED RELEASE CAPSULE 800 MG PO ×3 (08:46→17:04)
[2022-03-08] MEDS: MAGNESIUM OXIDE 400 MG TABLET PO (08:46)
[2022-03-08] MEDS: PANTOPRAZOLE SODIUM IV 40 MG VIAL IV PUSH (08:46)
[2022-03-08] MEDS: SODIUM BICARBONATE TAB 650 MG TABLET PO ×2 (08:48→17:05)
[2022-03-08] MEDS: POTASSIUM PHOS/SODIUM PHOS 250 MG TABLET 500 MG PO ×3 (08:48→17:04)
[2022-03-08 09:52] LABS: Magnesium 1.8 mg/dL (1.6-2.3)
[2022-03-08 10:41] VITALS: BMI 48.1
[2022-03-08] MEDS: ACETAMINOPHEN 325 MG TABLET 650 MG PO ×2 (12:04→23:00)
[2022-03-08 14:00] VITALS: BP 133/56; PULSE 83; RESP 18; TEMP 37.4; O2SAT 99
[2022-03-08] MEDS: KCL 20 MEQ/0.45% NS 1,000 ML 50 ML IV CONT (14:41)
--- NOTE | 2022-03-08 14:52 | P.PNIM_ITS ---
Progress Note: A&P Assessment and Plan (1) Sepsis: Code(s): A41.9 - Sepsis, unspecified organism Status: Acute Assessment and Plan: Septic shock with refractory hypotension needing vasopressor * likely secondary to colitis and UTI * blood cultures pending * salmonella/shigella pending, additional stool cultures negative * no longer requiring pressors. Remove femoral line * monitor intake and output, vital signs, labs * continue IV ceftriaxone and Flagyl 03/08/2022 interval history; on morning on 03/05 nurse notice rectal bleeding along fecal management system, seen by GI suspect most likely due to trauma from FMS, initially there was drop in HH but now it remains stable, patient rectal bleeding has improved, on 03/07 patient hgh has dropped to 6.6 from 8 on 03/06, there was kelvin rectal bleeding on 03/05 since then bleeding is minimal, gave 1 unit PRBC today her hgb is 8.2 patient denies any abdominal pain, or N/V, still having frequent BM and will be seen by GI, will monitor, patient with history of muscular dystryphy with septic shock 2/2 UTI and Colitis, patient is seen by GI suspect colitis possibly due to infection or inflammation, however stool is negative for any infection, patient may need colonoscopy to further evaluate, will continue to monitor. patient denies any abdominal pain or rectal pain. (2) Colitis: Code(s): K52.9 - Noninfective gastroenteritis and colitis, unspecified Status: Acute Assessment and Plan: most likely infectious * continue ceftriaxone and metronidazole * appreciate GI consultation * C diff negative * additional stool cultures pending * history of right-sided colitis, concerning for IBD. Continue mesalamine per GI recommendations. Pt refused on 03/03, stating she is not tolerant to this medication due to increased weakness. Today is agreeable to proceed. * continue with gentle IV fluids via peripheral IV as diarrhea persists (3) UTI (urinary tract infection): Code(s): N39.0 - Urinary tract infection, site not specified Status: Acute Assessment and Plan: urine culture with growth of 10-49k E. coli * continue ceftriaxone based on sensitivity report (4) Shock: Code(s): R57.9 - Shock, unspecified Status: Acute Assessment and Plan: resolved. [place] to be secondary to sepsis * patient has been adequately rehydrated. Received Levophed and albumin in ICU * procalcitonin 2.5 * TSH normal * cortisol 18.6 * lactic acid normal (5) WEI (acute kidney injury): Code(s): N17.9 - Acute kidney failure, unspecified Status: Acute Assessment and Plan: most likely secondary to dehydration and sepsis * CT scan did not show any hydronephrosis * CK normal * renal function appears to be a baseline (6) Hypokalemia: Code(s): E87.6 - Hypokalemia Status: Acute Assessment and Plan: potassium was 3.3 today * supplemental KCL * monitor BMP (7) Hypothermia: Code(s): T68.XXXA - Hypothermia, initial encounter Status: Acute Assessment and Plan: Resolved. likely secondary to sepsis and patient also has muscle dystrophy which has been replaced by obesity and fat * Temp improved with warming blanket (8) Chest pain: Code(s): R07.9 - Chest pain, unspecified Status: Acute Assessment and Plan: resolved. * EKG reviewed * troponin x3 negative * lipase normal * continue protonix for possible GERD or dyspepsia (9) Leukope
--- NOTE | 2022-03-08 14:52 | PM.IMPN ---
Progress Note: A&P Assessment and Plan (1) Sepsis: Code(s): A41.9 - Sepsis, unspecified organism Status: Acute Assessment and Plan: Septic shock with refractory hypotension needing vasopressor likely secondary to colitis and UTI blood cultures pending salmonella/shigella pending, additional stool cultures negative no longer requiring pressors. Remove femoral line monitor intake and output, vital signs, labs continue IV ceftriaxone and Flagyl 03/08/2022 interval history; on morning on 03/05 nurse notice rectal bleeding along fecal management system, seen by GI suspect most likely due to trauma from FMS, initially there was drop in HH but now it remains stable, patient rectal bleeding has improved, on 03/07 patient hgh has dropped to 6.6 from 8 on 03/06, there was kelvin rectal bleeding on 03/05 since then bleeding is minimal, gave 1 unit PRBC today her hgb is 8.2 patient denies any abdominal pain, or N/V, still having frequent BM and will be seen by GI, will monitor, patient with history of muscular dystryphy with septic shock 2/2 UTI and Colitis, patient is seen by GI suspect colitis possibly due to infection or inflammation, however stool is negative for any infection, patient may need colonoscopy to further evaluate, will continue to monitor. patient denies any abdominal pain or rectal pain. (2) Colitis: Code(s): K52.9 - Noninfective gastroenteritis and colitis, unspecified Status: Acute Assessment and Plan: most likely infectious continue ceftriaxone and metronidazole appreciate GI consultation C diff negative additional stool cultures pending history of right-sided colitis, concerning for IBD. Continue mesalamine per GI recommendations. Pt refused on 03/03, stating she is not tolerant to this medication due to increased weakness. Today is agreeable to proceed. continue with gentle IV fluids via peripheral IV as diarrhea persists (3) UTI (urinary tract infection): Code(s): N39.0 - Urinary tract infection, site not specified Status: Acute Assessment and Plan: urine culture with growth of 10-49k E. coli continue ceftriaxone based on sensitivity report (4) Shock: Code(s): R57.9 - Shock, unspecified Status: Acute Assessment and Plan: resolved. [place] to be secondary to sepsis patient has been adequately rehydrated. Received Levophed and albumin in ICU procalcitonin 2.5 TSH normal cortisol 18.6 lactic acid normal (5) WEI (acute kidney injury): Code(s): N17.9 - Acute kidney failure, unspecified Status: Acute Assessment and Plan: most likely secondary to dehydration and sepsis CT scan did not show any hydronephrosis CK normal renal function appears to be a baseline (6) Hypokalemia: Code(s): E87.6 - Hypokalemia Status: Acute Assessment and Plan: potassium was 3.3 today supplemental KCL monitor BMP (7) Hypothermia: Code(s): T68.XXXA - Hypothermia, initial encounter Status: Acute Assessment and Plan: Resolved. likely secondary to sepsis and patient also has muscle dystrophy which has been replaced by obesity and fat Temp improved with warming blanket (8) Chest pain: Code(s): R07.9 - Chest pain, unspecified Status: Acute Assessment and Plan: resolved. EKG reviewed troponin x3 negative lipase normal continue protonix for possible GERD or dyspepsia (9) Leukopenia: Code(s): D72.819 - Decreased white blood cell count, unspecified Status: Acute Assessment and Plan: Improving. white blood cell count is 4.1 todayt bandemia improving COVID, mono, influenza negative likely related to sepsis/acute infectious process repeat CBC with differential tomorrow Plan Phos 1.7 today. Discontinue fibercon. Begin sodium phosphate TID. Monitor phos levels Subjective Date/ti
--- NOTE | 2022-03-08 15:40 | WPDGIPROGNO ---
Progress Note: A&P Assessment and Plan (1) Chronic anemia: Code(s): D64.9 - Anemia, unspecified Status: Acute Assessment and Plan: Patient has a chronic ongoing anemia. Slight decline with blood over the weekend has stabilized. (2) Blood in stool: Code(s): K92.1 - Melena Status: Acute Assessment and Plan: Blood in stool resolved. Bright red blood in nature suspect this was from rectal trauma perhaps from the fecal containment tube. 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 Patient refuses mesalamine. As an alternative we could try Imuran. Plan to monitor for the time being. Stool cultures in progress because of diarrhea have been negative to date. (5) Diarrhea: Code(s): R19.7 - Diarrhea, unspecified Status: Acute Assessment and Plan: Stool cultures negative to date. C difficile toxin apparently was canceled for uncertain reasons. Diarrhea improving at present she is now able control of stool. Will continue to be of Imodium p.r.n.. Add banded trial. Subjective Date/time seen: 03/08/22 15:40 Patient alert comfortable at present. No bleeding. Patient reported to have bright red blood per rectum for 1 day over the weekend. Likely from trauma from fecal tube management system. Patient states diarrhea now more controlled. Less episodes of incontinence. Fecal containment tube is out. Hemoglobin currently stable. Tolerating diet. Review of Systems Review of Systems: Review of systems noncontributory. Exam Narrative: Physical exam reveals patient to be alert. She is obese. Bowel sounds are present. Abdomen soft nontender. No localized masses. Objective Data Vital Signs Vital Signs: Vital Signs - 24 hr 03/07/22 21:09 03/08/22 06:00 03/08/22 08:00 Temperature 97.6 F 98.1 F Pulse Rate 105 H 73 Respiratory Rate 20 18 Blood Pressure 124/70 130/67 Pulse Oximetry 98 98 Oxygen Delivery Room Air 03/08/22 14:00 Temperature 99.3 F Pulse Rate 83 Respiratory Rate 18 Blood Pressure 133/56 L Pulse Oximetry 99 Oxygen Delivery Intake/Output Intake/Output: Intake & Output 03/05/22 03/06/22 03/07/22 03/08/22 23:59 23:59 23:59 23:59 Intake Total 3790 2630 2907 830 Output Total 2352 2300 2475 1350 Balance 1438 330 432 -520 Meds/Results Medications: Active Medications Generic Name Dose Route Start Last Admin Trade Name Freq PRN Reason Stop Dose Admin Acetaminophen 650 mg 03/06/22 22:50 03/08/22 12:04 Acetaminophen 325 Mg Tablet PO 650 mg Q6H PRN Administration Mild Pain (1-3) or Fever Alprazolam 0.5 mg 03/06/22 12:07 03/06/22 22:38 Alprazolam (*Crx) 0.5 Mg Tablet PO 0.5 mg TID PRN Administration Anxiety Baclofen 10 mg 03/05/22 21:00 03/07/22 20:44 Baclofen 10 Mg Tablet PO 10 mg HS BENTLEY Administration Enoxaparin Sodium 40 mg 03/01/22 09:00 03/02/22 10:28 Enoxaparin 40 Mg/0.4 Ml Syringe SUB-Q Not Given DAILY BNETLEY Fentanyl Citrate 25 mcg 02/28/22 12:59 03/02/22 10:55 Fentanyl Citrate Inj (*Crx) 100 Mcg/2 Ml Vial IV PUSH 25 mcg Q3H PRN Administration Pain Rated 7-10 Ceftriaxone Sodium/Dextrose 1 gm in 50 mls @ 100 mls/hr 03/02/22 10:05 03/08/22 09:15 Rocephin 1 Gm/D5w 50 Ml IVPB Infused DAILY BENTLEY Infusion Potassium Chloride/Sodium Chloride 1,000 mls @ 50 mls/hr 03/08/22 10:00 03/08/22 14:41 Kcl 20 Meq/0.45% Ns IV CONT 50 mls/hr .Q20H BENTLEY Administration Metronidazole 500 mg in 100 mls @ 100 mls/hr 03/08/22 21:00 Flagyl 500 Mg/Iso Soln 100 Ml IVPB Q6H BENTLEY Loperamide HCl 2 mg 03/04/22 10:03 03/07/22 20:45 Loperamide Hcl 2 Mg Capsule PO 2 mg PRN PRN Administra
[2022-03-08] MEDS: ALPRAZolam (*CRX) 0.5 MG TABLET PO ×2 (17:04→23:00)
[2022-03-08] MEDS: MELATONIN 3 MG TABLET PO (20:28)
[2022-03-08] MEDS: BACLOFEN 10 MG TABLET PO (20:28)
[2022-03-08 21:18] VITALS: BP 147/68; PULSE 100; RESP 20; TEMP 37.3; O2SAT 97
[2022-03-09] MEDS: metroNIDAZOLE 500 MG/ISO 100ML 500 MG/100 ML BAG 100 MG IVPB ×3 (02:11→15:50)
[2022-03-09 05:47] LABS: Hematocrit 24.8 % (37.0-47.0); Hemoglobin 7.7 g/dL (12.0-15.0); Mean Corpuscular Hemoglobin 29.6 pg (26-34); Mean Corpuscular Volume 95.4 fl (80-100); Mean Platelet Volume 9.1 fl (7.4-10.4); Platelet Count Result 297 k/mm3 (150-375); Red Cell Distribution Width 15.3 % (11.5-14.5); White Blood Count 7.8 K/mm3 (4.5-10.0)
[2022-03-09 05:52] LABS: Albumin Level 2.5 g/dL (3.5-5.1); Anion Gap 8 mmol/L (8-16); Blood Urea Nitrogen 6 mg/dL (7-17); Calcium 7.4 mg/dL (8.4-10.2); Carbon Dioxide 24 mmol/L (22-30); Chloride 109 mmol/L (98-107); Estimated CRCL calculation 118 ml/min; Estimated Glomerular Filt Rate > 60; Glucose 93 mg/dL (65-110); Phosphorus 4.4 mg/dL (2.5-4.5); Potassium 4.1 mmol/L (3.4-5.0); Sodium 141 mmol/L (137-145)
[2022-03-09 06:00] VITALS: BP 124/62; PULSE 90; RESP 16; TEMP 36.9; O2SAT 96
[2022-03-09] MEDS: POTASSIUM PHOS/SODIUM PHOS 250 MG TABLET 500 MG PO ×3 (08:28→16:53)
[2022-03-09] MEDS: MESALAMINE 400 MG DELAYED RELEASE CAPSULE 800 MG PO ×3 (08:30→16:53)
[2022-03-09] MEDS: MAGNESIUM OXIDE 400 MG TABLET PO (08:30)
[2022-03-09] MEDS: ACETAMINOPHEN 325 MG TABLET 650 MG PO (08:31)
[2022-03-09] MEDS: PANTOPRAZOLE SODIUM IV 40 MG VIAL IV PUSH (08:32)
[2022-03-09] MEDS: SODIUM BICARBONATE TAB 650 MG TABLET PO ×2 (08:32→16:54)
[2022-03-09] MEDS: ALPRAZolam (*CRX) 0.5 MG TABLET PO (12:49)
--- NOTE | 2022-03-09 13:14 | WPDGIPROGNO ---
Progress Note: A&P Assessment and Plan (1) Chronic anemia: Code(s): D64.9 - Anemia, unspecified Status: Acute Assessment and Plan: Patient with chronic underlying anemia. No additional bleeding to contribute to this at present. (2) Obese: Code(s): E66.9 - Obesity, unspecified Status: Acute Assessment and Plan: Patient is obese. Calorie restriction may be beneficial. She does have DC decreased activity with muscular dystrophy. (3) Blood in stool: Code(s): K92.1 - Melena Status: Acute (4) Diarrhea: Code(s): R19.7 - Diarrhea, unspecified Status: Acute Assessment and Plan: Diarrhea improving. Plan to add fiber supplementation. She has intermittent diarrhea alternating with constipation as a baseline as an outpatient. (5) Colitis: Code(s): K52.9 - Noninfective gastroenteritis and colitis, unspecified Status: Acute Assessment and Plan: Patient known to have nonspecific ascending colon colitis. She refuses mesalamine as she feels this makes her weaker. Will continue fiber supplementation. Consider Imuran if diarrhea and bleeding Recur.. (6) Muscular dystrophy, unspecified: Code(s): G71.00 - Muscular dystrophy, unspecified Status: Acute Subjective Date/time seen: 03/09/22 13:14 Patient alert comfortable this afternoon. Tolerating diet. Denies abdominal pain. Stools are formed. She is able to control them now. No additional bleeding reported over the last 2 days. Review of Systems Review of Systems: Review of systems noncontributory. Exam Narrative: Physical exam reveals patient be alert. Comfortable at rest. She remains bedridden. Vital signs stable. HEENT exam reveals no icterus. Lungs are clear. Heart without murmur. Abdomen bowel sounds are present soft nontender. Abdomen is obese. Objective Data Vital Signs Vital Signs: Vital Signs - 24 hr 03/08/22 14:00 03/08/22 21:18 03/09/22 06:00 Temperature 99.3 F 99.1 F 98.4 F Pulse Rate 83 100 90 Respiratory Rate 18 20 16 Blood Pressure 133/56 L 147/68 H 124/62 Pulse Oximetry 99 97 96 Oxygen Delivery 03/09/22 08:00 Temperature Pulse Rate Respiratory Rate Blood Pressure Pulse Oximetry Oxygen Delivery Room Air Intake/Output Intake/Output: Intake & Output 03/06/22 03/07/22 03/08/22 03/09/22 23:59 23:59 23:59 23:59 Intake Total 2630 2907 1700 640 Output Total 2300 2865 4150 Balance 330 432 -2450 640 Meds/Results Medications: Active Medications Generic Name Dose Route Start Last Admin Trade Name Freq PRN Reason Stop Dose Admin Acetaminophen 650 mg 03/06/22 22:50 03/09/22 08:31 Acetaminophen 325 Mg Tablet PO 650 mg Q6H PRN Administration Mild Pain (1-3) or Fever Alprazolam 0.5 mg 03/06/22 12:07 03/09/22 12:49 Alprazolam (*Crx) 0.5 Mg Tablet PO 0.5 mg TID PRN Administration Anxiety Baclofen 10 mg 03/05/22 21:00 03/08/22 20:28 Baclofen 10 Mg Tablet PO 10 mg HS BENTLEY Administration Enoxaparin Sodium 40 mg 03/01/22 09:00 03/02/22 10:28 Enoxaparin 40 Mg/0.4 Ml Syringe SUB-Q Not Given DAILY BENTLEY Fentanyl Citrate 25 mcg 02/28/22 12:59 03/02/22 10:55 Fentanyl Citrate Inj (*Crx) 100 Mcg/2 Ml Vial IV PUSH 25 mcg Q3H PRN Administration Pain Rated 7-10 Ceftriaxone Sodium/Dextrose 1 gm in 50 mls @ 100 mls/hr 03/02/22 10:05 03/09/22 09:03 Rocephin 1 Gm/D5w 50 Ml IVPB Infused DAILY BENTLEY Infusion Potassium Chloride/Sodium Chloride 1,000 mls @ 50 mls/hr 03/08/22 10:00 03/08/22 14:41 Kcl 20 Meq/0.45% Ns IV CONT 50 mls/hr .Q20H BENTLEY Administration Metronidazole 500 mg in 100 mls @ 100 mls/hr 03/08/22 21:00 03/09/22 10:26 Flagyl 500 Mg/Iso Soln 100 Ml IVPB Infused Q6H BENTLEY Infusion Loperamide HCl 2 mg 03/04/22 10:03 03/07/22 20:45 Loperamide Hcl 2 Mg Capsule PO 2 mg PRN PRN Administration Diarrhea Magnesi
[2022-03-09 14:48] VITALS: BP 134/74; PULSE 79; RESP 16; TEMP 36.1; O2SAT 95
--- NOTE | 2022-03-09 15:26 | P.DS_ITS ---
DS: Admitting Diagnosis Discharge Date 03/09/2022 Admitting Diagnosis diarrhea DS: Discharge Diagnosis Discharge Diagnosis (1) Sepsis: Code(s): A41.9 - Sepsis, unspecified organism Status: Acute Assessment and Plan: Septic shock with refractory hypotension needing vasopressor * likely secondary to colitis and UTI * blood cultures pending * salmonella/shigella pending, additional stool cultures negative * no longer requiring pressors. Remove femoral line * monitor intake and output, vital signs, labs * continue IV ceftriaxone and Flagyl 03/08/2022 interval history; on morning on 03/05 nurse notice rectal bleeding along fecal management system, seen by GI suspect most likely due to trauma from FMS, initially there was drop in HH but now it remains stable, patient rectal bleeding has improved, on 03/07 patient hgh has dropped to 6.6 from 8 on 03/06, there was kelvin rectal bleeding on 03/05 since then bleeding is minimal, gave 1 unit PRBC today her hgb is 8.2 patient denies any abdominal pain, or N/V, still having frequent BM and will be seen by GI, will monitor, patient with history of muscular dystryphy with septic shock 2/2 UTI and Colitis, patient is seen by GI suspect colitis possibly due to infection or inflammation, however stool is n egative for any infection, patient may need colonoscopy to further evaluate, will continue to monitor. patient denies any abdominal pain or rectal pain. (2) Colitis: Code(s): K52.9 - Noninfective gastroenteritis and colitis, unspecified Status: Acute Assessment and Plan: most likely infectious * continue ceftriaxone and metronidazole * appreciate GI consultation * C diff negative * additional stool cultures pending * history of right-sided colitis, concerning for IBD. Continue mesalamine per GI recommendations. Pt refused on 03/03, stating she is not tolerant to this medication due to increased weakness. Today is agreeable to proceed. * continue with gentle IV fluids via peripheral IV as diarrhea persists (3) UTI (urinary tract infection): Code(s): N39.0 - Urinary tract infection, site not specified Status: Acute Assessment and Plan: urine culture with growth of 10-49k E. coli * continue ceftriaxone based on sensitivity report (4) Shock: Code(s): R57.9 - Shock, unspecified Status: Acute Assessment and Plan: resolved. Swoope to be secondary to sepsis * patient has been adequately rehydrated. Received Levophed and albumin in ICU * procalcitonin 2.5 * TSH normal * cortisol 18.6 * lactic acid normal (5) WEI (acute kidney injury): Code(s): N17.9 - Acute kidney failure, unspecified Status: Acute Assessment and Plan: most likely secondary to dehydration and sepsis * CT scan did not show any hydronephrosis * CK normal * renal function appears to be a baseline (6) Hypokalemia: Code(s): E87.6 - Hypokalemia Status: Acute Assessment and Plan: potassium was 3.3 today * supplemental KCL * monitor BMP (7) Hypothermia: Code(s): T68.XXXA - Hypothermia, initial encounter Status: Acute Assessment and Plan: Resolved. likely secondary to sepsis and patient also has muscle dystrophy which has been replaced by obesity and fat * Temp improved with warming blanket (8) Chest pain: Code(s): R07.9 - Chest pain, unspecified Status: Acute Assessment and Plan: resolved. * EKG reviewed * troponin x3
[2022-03-09] MEDS: calcium polycarbophiL 625 MG TABLET 1250 MG PO (16:54)
== END 2022-03-09 20:20 | disposition home health service (06) | DRG 871 ==
LOC: ANHED 11:44 → ANHICU 13:17 → ANH2MED 03-03 07:30 → ANHICU 03-10 14:20
PROVIDERS: Family Medicine; Internal Medicine; Internal Medicine Gastroenterology; Admitting Provider Chiropractor; Emergency Provider Emergency Medicine; PCP Physician Assistant; Visit Provider Physician Assistant
DX: A41.9 Sepsis, unspecified organism (principal); R65.21 Severe sepsis with septic shock; N39.0 Urinary tract infection, site not specified; A09 Infectious gastroenteritis and colitis, unspecified; Z68.42 Body mass index [BMI] 45.0-49.9, adult; K92.1 Melena; N17.9 Acute kidney failure, unspecified; B96.20 Unspecified Escherichia coli [E. coli] as the cause of diseases classified elsewhere; G71.00 Muscular dystrophy, unspecified; Z20.822 Contact with and (suspected) exposure to COVID-19; D64.9 Anemia, unspecified; G56.20 Lesion of ulnar nerve, unspecified upper limb; I10 Essential (primary) hypertension; F41.8 Other specified anxiety disorders; M19.90 Unspecified osteoarthritis, unspecified site; D72.819 Decreased white blood cell count, unspecified; E66.01 Morbid (severe) obesity due to excess calories; E87.6 Hypokalemia; I95.9 Hypotension, unspecified; E86.0 Dehydration; E86.1 Hypovolemia; K21.9 Gastro-esophageal reflux disease without esophagitis; R68.0 Hypothermia, not associated with low environmental temperature; R10.13 Epigastric pain; Z87.891 Personal history of nicotine dependence
CPT/HCPCS: 36415; 36430; 36556; 36600; 70450; 71045; 74177; 80048; 80053; 80069; 80202; 81001; 82533; 82550; 82565; 82805; 83605; 83690; 83735; 84100; 84132; 84145; 84443; 84484; 85014; 85018; 85025; 85027; 85380; 85610; 85730; 86036; 86140; 86308; 86671; 86850; 86900; 86901; 86920; 87040; 87045; 87077; 87086; 87088; 87186; 87269; 87272; 87427; 87493; 87804; 89055; 92610; 93005; 96374; 96375; 99285; A9270; C1751; C9113; C9803; J0131; J0692; J0696; J1650; J2997; J3010; J3370; J3475; J3480; J7030; J7040; J7050; P9016; P9047; Q9967; U0003; U0005

== ENCOUNTER 2022-03-23 15:01 | Outpatient (CLI) | payer MEDICARE, MEDICAID, SELFPAY ==
[2022-03-23 15:33] LABS: Basophils Absolute Auto 0.1 K/mm3 (0.0-0.1); Basophils Percent Auto 0.8 % (0.2-1.2); Eosinophils Absolute Auto 0.3 K/mm3 (0-0.3); Eosinophils Percent Auto 4.3 % (0-4.4); Hemoglobin 10.6 g/dL (12.0-15.0); Immature Granulocyte Absolute 0.04 K/mm3 (0.00-0.031); Immature Granulocyte Percent A 0.5 % (0-0.5); Lymphocytes Absolute Auto 1.62 K/mm3 (0.9-3.2); Lymphocytes Percent Auto 21.2 % (18.3-44.2); Mean Corpuscular HGB Conc 30.3 g/dl (32-36); Mean Corpuscular Hemoglobin 28.9 pg (26-34); Mean Corpuscular Volume 95.4 fl (80-100); Mean Platelet Volume 8.8 fl (7.4-10.4); Monocytes Absolute Auto 0.6 K/mm3 (0.1-0.6); Monocytes Percent Auto 7.2 % (2.6-8.5); Neutrophils Absolute Auto 5.1 K/mm3 (1.3-6.7); Platelet Count Result 318 k/mm3 (150-375); Red Blood Count 3.67 M/mm3 (4.2-5.4); Red Cell Distribution Width 14.5 % (11.5-14.5); White Blood Count 7.7 K/mm3 (4.5-10.0)
[2022-03-23 16:01] LABS: Alanine Aminotransferase 19 U/L (6-35); Alkaline Phosphatase 76 U/L (38-126); Anion Gap 11 mmol/L (8-16); Aspartate Amino Transferase 37 U/L (14-36); Bilirubin,Total 0.5 mg/dL (0.2-1.3); Blood Urea Nitrogen 10 mg/dL (7-17); Calcium 8.9 mg/dL (8.4-10.2); Carbon Dioxide 27 mmol/L (22-30); Chloride 105 mmol/L (98-107); Estimated Glomerular Filt Rate > 60; Glucose 146 mg/dL (65-110); Potassium 3.2 mmol/L (3.4-5.0); Sodium 143 mmol/L (137-145)
[2022-03-23 16:30] LABS: IFOB Positive Control Positive; Immunochemical Fecal Occult Bl Negative (N)
== END 2022-03-23 15:02 | disposition home or self-care (01) ==
LOC: ANHLAB 15:12
PROVIDERS: PCP Family Medicine; Visit Provider Physician Assistant
DX: F32.9 Major depressive disorder, single episode, unspecified (principal); K92.1 Melena; D64.9 Anemia, unspecified; N17.9 Acute kidney failure, unspecified; E87.6 Hypokalemia
CPT/HCPCS: 36415; 80053; 82274; 83735; 84443; 85025

== ENCOUNTER 2022-04-08 14:30 | Outpatient (CLI) | payer MEDICARE, MEDICAID, SELFPAY ==
[2022-04-08 20:48] LABS: Anion Gap 16 mmol/L (8-16); Blood Urea Nitrogen 21 mg/dL (7-17); Carbon Dioxide 22 mmol/L (22-30); Chloride 105 mmol/L (98-107); Potassium 3.5 mmol/L (3.4-5.0); Sodium 143 mmol/L (137-145)
[2022-04-08 20:49] LABS: Calcium 9.5 mg/dL (8.4-10.2); Estimated Glomerular Filt Rate > 60; Glucose 93 mg/dL (65-110)
== END 2022-04-08 14:31 | disposition home or self-care (01) ==
LOC: ANHGOSHLAB 14:32
PROVIDERS: PCP Family Medicine; Visit Provider Physician Assistant
DX: E87.6 Hypokalemia (principal)
CPT/HCPCS: 36415; 80048

== ENCOUNTER 2022-05-17 14:54 | Outpatient (CLI) | payer MEDICARE, MEDICAID, SELFPAY ==
[2022-05-17 19:52] LABS: Basophils Percent Auto 0.6 % (0.2-1.2); Eosinophils Absolute Auto 0.2 K/mm3 (0-0.3); Eosinophils Percent Auto 3.1 % (0-4.4); Hematocrit 36.6 % (37.0-47.0); Hemoglobin 11.8 g/dL (12.0-15.0); Immature Granulocyte Absolute 0.02 K/mm3 (0.00-0.031); Immature Granulocyte Percent A 0.3 % (0-0.5); Lymphocytes Absolute Auto 2.26 K/mm3 (0.9-3.2); Mean Corpuscular HGB Conc 32.2 g/dl (32-36); Mean Corpuscular Hemoglobin 27.9 pg (26-34); Mean Corpuscular Volume 86.5 fl (80-100); Mean Platelet Volume 9.8 fl (7.4-10.4); Monocytes Absolute Auto 0.3 K/mm3 (0.1-0.6); Monocytes Percent Auto 5.3 % (2.6-8.5); Neutrophils Absolute Auto 3.6 K/mm3 (1.3-6.7); Neutrophils Percent Auto 55.7 % (45.5-73.1); Platelet Count Result 311 k/mm3 (150-375); Red Blood Count 4.23 M/mm3 (4.2-5.4); Red Cell Distribution Width 14.4 % (11.5-14.5); White Blood Count 6.5 K/mm3 (4.5-10.0)
[2022-05-17 20:12] LABS: Iron 36 ug/dL (37-170)
[2022-05-17 20:29] LABS: Percent Iron Saturation 10 % (20-50)
== END 2022-05-17 14:55 | disposition home or self-care (01) ==
LOC: ANHGOSHLAB 14:58
PROVIDERS: PCP Family Medicine; Visit Provider Physician Assistant
DX: R29.898 Other symptoms and signs involving the musculoskeletal system (principal); D64.9 Anemia, unspecified; K56.699 Other intestinal obstruction unspecified as to partial versus complete obstruction
CPT/HCPCS: 36415; 82728; 83540; 83550; 85025

== ENCOUNTER 2023-04-22 14:47 | Outpatient (CLI) | payer MEDICARE, MEDICAID, SELFPAY ==
[2023-04-22 18:37] LABS: Cholesterol 185 mg/dL (0-200); HDL Direct 42 mg/dL; Triglycerides 238 mg/dL (<150)
[2023-04-22 18:40] LABS: Basophils Percent Auto 0.4 % (0.2-1.2); Eosinophils Absolute Auto 0.2 K/mm3 (0-0.3); Eosinophils Percent Auto 2.4 % (0-4.4); Hematocrit 43.4 % (37.0-47.0); Hemoglobin 13.6 g/dL (12.0-15.0); Immature Granulocyte Absolute 0.03 K/mm3 (0.00-0.031); Immature Granulocyte Percent A 0.3 % (0-0.5); Lymphocytes Absolute Auto 2.43 K/mm3 (0.9-3.2); Lymphocytes Percent Auto 26.4 % (18.3-44.2); Mean Corpuscular HGB Conc 31.3 g/dl (32-36); Mean Corpuscular Hemoglobin 29.7 pg (26-34); Mean Corpuscular Volume 94.8 fl (80-100); Mean Platelet Volume 10.1 fl (7.4-10.4); Monocytes Absolute Auto 0.5 K/mm3 (0.1-0.6); Monocytes Percent Auto 5.7 % (2.6-8.5); Neutrophils Percent Auto 64.8 % (45.5-73.1); Platelet Count Result 299 k/mm3 (150-375); Red Blood Count 4.58 M/mm3 (4.2-5.4); Red Cell Distribution Width 12.7 % (11.5-14.5); White Blood Count 9.2 K/mm3 (4.5-10.0)
[2023-04-22 18:44] LABS: Hemoglobin A1C 4.9 % (<5.7); Iron 78 ug/dL (37-170)
[2023-04-22 18:48] LABS: LDL Cholesterol Direct 94 mg/dL
[2023-04-22 18:54] LABS: Percent Iron Saturation 28 % (20-50)
== END 2023-04-22 14:48 | disposition home or self-care (01) ==
LOC: ANHGOSHLAB 14:49
PROVIDERS: PCP Emergency Medicine; Visit Provider Emergency Medicine
DX: R73.02 Impaired glucose tolerance (oral) (principal); I10 Essential (primary) hypertension; D64.9 Anemia, unspecified; K56.699 Other intestinal obstruction unspecified as to partial versus complete obstruction; F32.9 Major depressive disorder, single episode, unspecified
CPT/HCPCS: 36415; 80061; 82728; 83036; 83540; 83550; 85025

== ENCOUNTER 2023-11-11 12:15 | Outpatient (NON) | payer MEDICARE, MEDICAID, SELFPAY ==
[2023-11-11 14:47] LABS: Toxigenic C. Diff NEGATIVE (NEGATIVE)
== END 2023-11-11 12:16 | disposition home or self-care (01) ==
LOC: ANHLAB 12:17
PROVIDERS: PCP Emergency Medicine; Visit Provider Nurse Practitioner Family
DX: R19.7 Diarrhea, unspecified (principal)
CPT/HCPCS: 87045; 87427; 87449; 87493

== ENCOUNTER 2024-01-10 14:21 | Outpatient (CLI) | payer MEDICARE, MEDICAID, SELFPAY ==
[2024-01-10 15:53] LABS: Basophils Percent Auto 0.5 % (0.2-1.2); Eosinophils Absolute Auto 0.2 K/mm3 (0-0.3); Eosinophils Percent Auto 2.6 % (0-4.4); Hematocrit 44.7 % (37.0-47.0); Hemoglobin 14.2 g/dL (12.0-15.0); Immature Granulocyte Absolute 0.02 K/mm3 (0.00-0.031); Immature Granulocyte Percent A 0.2 % (0-0.5); Lymphocytes Absolute Auto 1.93 K/mm3 (0.9-3.2); Lymphocytes Percent Auto 22.1 % (18.3-44.2); Mean Corpuscular HGB Conc 31.8 g/dl (32-36); Mean Corpuscular Hemoglobin 29.3 pg (26-34); Mean Corpuscular Volume 92.2 fl (80-100); Mean Platelet Volume 9.8 fl (7.4-10.4); Monocytes Absolute Auto 0.4 K/mm3 (0.1-0.6); Monocytes Percent Auto 4.3 % (2.6-8.5); Neutrophils Absolute Auto 6.1 K/mm3 (1.3-6.7); Neutrophils Percent Auto 70.3 % (45.5-73.1); Platelet Count Result 286 k/mm3 (150-375); Red Blood Count 4.85 M/mm3 (4.2-5.4); White Blood Count 8.7 K/mm3 (4.5-10.0)
[2024-01-10 16:27] LABS: Alanine Aminotransferase 20 U/L (6-35); Albumin Level 4.4 g/dL (3.5-5.1); Alkaline Phosphatase 82 U/L (38-126); Anion Gap 12 mmol/L (4-12); Aspartate Amino Transferase 37 U/L (14-36); Bilirubin,Total 0.7 mg/dL (0.2-1.3); Blood Urea Nitrogen 14 mg/dL (7-17); Calcium 9.3 mg/dL (8.4-10.2); Carbon Dioxide 29 mmol/L (22-30); Chloride 101 mmol/L (98-107); Cholesterol 195 mg/dL (0-200); Estimated Glomerular Filt Rate > 60; Glucose 102 mg/dL (65-110); HDL Direct 45 mg/dL; Potassium 3.3 mmol/L (3.4-5.0); Sodium 142 mmol/L (137-145); Triglycerides 140 mg/dL (<150)
[2024-01-10 16:38] LABS: LDL Cholesterol Direct 110 mg/dL
== END 2024-01-10 14:22 | disposition home or self-care (01) ==
LOC: ANHGOSHLAB 14:22
PROVIDERS: PCP Emergency Medicine; Visit Provider Emergency Medicine
DX: R30.0 Dysuria (principal); E78.1 Pure hyperglyceridemia; G71.09 Other specified muscular dystrophies; Z13.29 Encounter for screening for other suspected endocrine disorder
CPT/HCPCS: 36415; 80053; 80061; 85025